=== PATIENT | male | born 1950 | race Caucasian/White ===

== ENCOUNTER → 2023-10-25 | Outpatient (CLI) | payer MEDICARE, SELFPAY ==
--- OUTSIDE RECORDS SUMMARY | 2023-10-25 10:19 | XMS RPT_ITS | CCD ---
Author Name Unknown Address [address] [place] [address] Organization [facility] Care Team Providers Care Aluminum Molder Name Role Phone Santi Hayden Unavailable Unavailable Unavailable AJ HEREDIA Referring Unavailab AJ Rahman Referring Unavailab STACI Lucio Referring Unavailable LOC DOBSON Attending Unavailable Medications Completed/Discontinued Medications Medication Drug Class(es) Dates Sig (Normalized) Sig (Original) aspirin 81 mg oral tablet (3 sources) Platelet Aggregation Inhibitor, Nonsteroidal Anti-inflammatory Drug Aspirin 81 MG TAB S Quantity: 0 Refills: 0 Ordered: 04-Nov-2016 DO Active Problems Problem Classification Problem Date Documented Date Episodic/Chronic Coronary atherosclerosis and other heart disease (3 sources) Coronary arteriosclerosis; Translations: [Coronary atherosclerosis of unspecified type of vessel, iqugmiut or graft] Chronic Genitourinary symptoms and ill-defined conditions (3 sources) Increased frequency of urination; Translations: [Urinary frequency] Episodic Other diseases of kidney and ureters (1 source) Other specified disorders of kidney and ureter; Translations: [Right kidney mass] Onset: 10-19-2023 Chronic Other lower respiratory disease (1 source) Other nonspecific abnormal finding of lung field; Translations: [Mass of upper lobe of left lung] Onset: 10-11-2023 Episodic Other non-traumatic joint disorders (3 sources) Pain in wrist; Translations: [Pain in joint, forearm] Episodic Other nutritional; endocrine; and metabolic disorders (1 source) Abnormal weight loss; Translations: [Weight loss, unintentional] Onset: 10-11-2023 Episodic Other upper respiratory infections (6 sources) Acute frontal sinusitis; Translations: [Acute frontal sinusitis] Episodic Sprains and strains (3 sources) Low back strain; Translations: [Sprain of lumbar] Episodic Results Test Name Value Interpretation Reference Range Facil ity Vital Signs Date Time Vital Sign Value Performing Clinician Mallory turcios 07-27-2021 11:00-0400 Body mass index (BMI) [Ratio] 26.85 kg/m2 Santi Hayden Work Phone: [facility] Work Phone: 07-27-2021 11:00-0400 Body surface area Derived from formula 2.03 m2 Santi Hayden [facility] Work Phone: 07-27-2021 11:00-0400 Body temperature 97.2 [degF] Santi Hayden [facility] Work Phone: 07-27-2021 11:00-0400 Body weight 84.88 kg Santi Hayden [facility] Work Phone: 07-27-2021 11:00-0400 Diastolic blood pressure 68 mm[Hg] Santi Hayden Work Phone: [facility] Work Phone: 07-27-2021 11:00-0400 Heart rate 70 /min Santi Hayden Work Phone: [facility] Work Phone: 07-27-2021 11:00-0400 Systolic blood pressure 112 mm[Hg] Santi Hayden Work Phone: [facility] Work Phone: Encounters Encounter Date Encounter Type Care Provider Facility Start: 10-24-2023 End: 10-24-2023 ambulatory STACI MCNULTY Facility:[facility] Start: 10-19-2023 ambulatory AJ Westbrook acility:[facility] Start: 10-08-2023 Emergency department patient visit Facility:[facility] Start: 08-09-2021 AUDIT Santi merino Work Phone: [facility] Work Phone: Start: 07-27-2021 Office outpatient vi sit 15 minutes Santi Hayden Work Phone: [facility] Work Phone: Procedures Date Procedure Procedure Detail Performing Clinician Inguinal Hernia Repair Santi Hayden Work Phone: Payers Date Payer Category Payer Private Health Insurance [id number] Unknown Social History Date Type Detail Facility Current every day smoker Current every da y smoker [facility] Work Phone: Progress note 10-24-2023 Note Date & Type Note Facility 10-24-2023 Note HNO ID: [id number] Author: LOC DOBSON MD Service: ? Author Type: Physician Type: Progress Notes Filed: 10/24/2023 15:41 Note Text: HISTORY OF PRESENT ILLNESS: Santi Moore is a 73 year old male presented to ER after syncope, needed stitches to head, had a chest x ray, found mass. Workup led to PET scan and bronchoscopy, showed SCC lung. PET also shows bilateral lung nodules and a kidney mass on right, FDG avid. He feels ok, has been less energetic, lost weight since hospital stay, not dyspneic, cough is chronic stable. Right low back pain in vicinity of kidney mass. 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 As such stage IV Right renal mass. RECOMMENDATION/PLAN: 1. Plan SA pembrolizumab given paucity of symptoms, and PDL positivity 2. Biopsy renal mass, suspect separate process. Written and verbal health teaching given to patient, patient verbalizes understanding and agrees with treatment plan. PAST MEDICAL HISTORY Diagnosis Date CAD (coronary artery disease) Fracture HLD (hyperlipidemia) 10/08/2023 HTN (hypertension) 10/08/2023 Increased stomach acid PAST SURGICAL HISTORY Procedure Laterality Date HERNIA REPAIR HX 2 PAST SURGICAL HISTORY OF Right repair of right ankle fracture FAMILY HISTORY Problem Relation Age of Onset Breast Cancer Sister Heart disease Sister Heart disease Maternal Grandfather Social History Tobacco Use Smoking status: Former Packs/day: 2.00 Years: 30.00 Additional pack years: 0.00 Total pack years: 60.00 Types: Cigarettes Quit date: 10/08/2023 Years since quittin.0 Smokeless tobacco: Former Types: Snuff, Chew Quit date: 01/08/1961 Substance Use Topics Alcohol use: Yes Comment: stating, occasionally. Drug use: No ALLERGIES: ALLERGIES No Known Allergies CURRENT OUTPATIENT MEDICATIONS: cholecalciferol, vitamin D3, (VITAMIN D3 ORAL) Take by mouth once daily. cyanocobalamin, vitamin B-12, (VITAMIN B-12 ORAL) Take by mouth once daily. ZINC ORAL Take by mouth once daily. ascorbic acid (VITAMIN C ORAL) Take by mouth once daily. GARLIC ORAL Take by mouth once daily. OTC NUTRITIONAL SUPPLEMENT once daily. Beet root MAGNESIUM ORAL Take by mouth once daily. pantoprazole DR (PROTONIX) 40 mg tablet Take 1 tablet by mouth daily at 6 am. acetaminophen (TYLENOL) 325 mg tablet Take 2 tablets by mouth every 6 hours as needed for pain. REVIEW OF SYSTEMS: GENERAL: No fever, night sweats, weight loss or malaise. All other reviewed and negative other than HPI. PHYSICAL EXAMINATION: VITAL SIGNS: BP 118/69 Pulse 84 Temp (Src) 99.8 (Temporal) Ht 5' 10 (1.78m) Wt 164 lb (74.4kg) SpO2 96% BMI 23.53 kg/(m2). GENERAL APPEARANCE: Well appearing, in no acute distress, alert and oriented x3, well-hydrated, well nourished. I spent a total of 60 minutes on the date of the service which included preparing to see the patient, [id number] patient care, completing clinical documentation, obtaining and/or reviewing separately obtained history, performing a medically appropriate examination, counseling and educating the patient/family/caregiver, ordering medications, tests, or procedures, communicating with other HCPs (not separately reported), independently interpreting results (not separately reported), communicating results to the patient/family/caregiver, and care coordination (not separately reported). Electronically Signed: Loc Dobson MD October 24, 2023 8:50 AM [facility] Progress note 10-19-2023 Note Date & Type Note Facility 10-19-2023 Note HNO ID: [id number] Author: RACHAEL GARVEY RT(R) Service: Nuclear Medicine Author Type: Technologist Type: Progress Notes Filed: 10/19/2023 07:49 Note Text: RADIOLOGY SERVICE PROGRESS NOTE SERVICE DATE: 10/19/2023 SERVICE TIME: 7:49 AM PATIENT IDENTITY VERIFICATION COMPLETED USING TWO (2) STANDARD IDENTIFIERS: Name and Date of confirmed by patient verbally and Name and Date of confirmed by identification band FALL SCREENING: Has the patient had 2 falls in the last year or 1 fall with injury or currently using an Ambulatory Assistive Device (Walker, Cane, Wheelchair, Crutches, etc.)? No PATIENT GENDER DATA: .male ALLERGIES: Reviewed and unchanged MEDICATIONS REVIEWED: No PATIENT RELEVANT IMPLANT DATA REVIEWED: Not Applicable CREATININE: Creatinine Date Value Ref Range Status 10/11/2023 1.09 0.73 - 1.22 mg/dL Final 10/10/2023 1.15 0.73 - 1.22 mg/dL Final 10/09/2023 1.06 0.73 - 1.22 mg/dL Final Estimated Glomerular Filtration Rate Date Value Ref Range Status 10/11/2023 72 >=60 mL/min/1.73m? Final Comment: Estimated Glomerular Filtration Rate (eGFR) is calculated using the 2020 CKD-EPI creatinine equation. This equation utilizes serum creatinine, sex, and age as parameters. The creatinine assay has traceable calibration to isotope dilution-mass spectrometry. Refer to KDIGO guidelines for clinical interpretation. In patients with unstable renal function, e.g. those with acute kidney injury, the eGFR may not accurately reflect actual GFR. P.O.C.T. RESULTS: N/A October 19, [address] PERFORMED: No IV SITE: Ambulatory: NM only - direct IV injection in the Right antecubital site POST EXAM PIV STATUS: Discontinued PROCEDURE TYPE: NM INJECT: PET/CT BODY SCAN. 15.4 mCi F18 FDG. No other medications given.. ADMINISTRATION TIME: 0734 PATIENT DISCHARGED TO: Ambulatory patient, left [place] department area. A Diagnostic radioactive procedure has taken place, with no further precautions necessary other than routine body substance precautions. More information regarding radiation safety can be found using this link: [email or web address] SIGNATURE: RT Dave(R) PATIENT NAME: Santi Moore DATE: October 19, 2023 TIME: 7:49 AM PAGER/CONTACT #: [facility] Progress note 10-11-2023 Note Date & Type Note Facility 10-11-2023 Note HNO ID: [id number] Author: Kimmie Gibbs APRN.CORPORATE SECURITY MANAGER Service: Cardiovascular Medicine Author Type: Nurse Practitioner Type: Progress Notes Filed: 10/11/2023 1:16 PM Note Text: CONSULT: CARDIOLOGY SERVICE PATIENT NAME: Santi Moore DATE of SERVICE: 10/11/2023 TIME of SERVICE: 10:31 AM Interval HPI: Feels well. Anxious for discharge home. ASSESSMENT AND PLAN: Probable vasovagal syncope CAD with prior intervention to OM Possible lung and renal cell carcinoma, bronch with b planned OP Hypertension Hyperlipidemia Awaiting echo Continue current therapy Ok for dc pending echo MEDICATIONS: Current Facility-Administered Medications Medication Dose Route Frequency NaCl 0.9% iv flush bag 20 mL INTRAVENOUS PRN acetaminophen 650 mg tab(s) (TYLENOL) 650 mg ORAL q 6 H PRN ipratropium-albuterol 3 mL nebulizer solution (DUONEB) 3 mL INHALATION q 4 H PRN enoxaparin 40 mg injection (LOVENOX) 40 mg SUBCUTANEOUS q [address] 40 mg tab(s) (PROTONIX) 40 mg ORAL DAILY (6 AM) lactated ringers iv infusion 75 mL/hr INTRAVENOUS CONTINUOUS iv contrast (radiology procedure) INTRAVENOUS DIRECTED PRN sodium chloride 0.9 % (flush) 2-10 mL (BD POSIFLUSH) 2-10 mL INTRAVENOUS DIRECTED PRN And perflutren lipid microspheres 1.1 mg/mL 1.3 mL injection (DEFINITY) 1.3 mL INTRAVENOUS DIRECTED PRN ALLERGIES: ALLERGIES No Known Allergies PHYSICAL EXAM: BP: 141/66 Temp: 36.8 ?C (98.2 ?F) Temp src: Oral Pulse: 49 Resp: 16 O2 Therapy: Room Air SpO2: 100 % GENERAL: Alert, no distress, cooperative SKIN: Skin color, texture, turgor normal. No rashes or lesions. HEAD/SINUSES: No significant findings EYES: PERRLA, EOMI EARS: External ears normal, canals clear NOSE: Nares normal. Septum midline. OROPHARYNX: Lips, mucosa, and tongue normal. Teeth and gums normal. Oropharynx normal. NECK: No jugulovenous distention, No carotid bruits, Carotid pulse normal contour, Supple LUNGS: Lungs clear to auscultation, Good diaphragmatic excursion CARDIAC: Normal S1 and S2; no rubs, murmurs, or gallops ABDOMEN: Abdomen soft, non-tender, BS normal, No masses or organomegaly EXTREMITIES: Extremities normal, no deformities, edema, clubbing or skin discoloration. Good capillary refill., No ulcers NEURO: AANDOx3 PULSES: 2+ radial, 2+ carotid DATA: Radiology: Laboratory: Reviewed Other: SIGNATURE: Kimmie Gibbs APRN.CORPORATE SECURITY MANAGER CELL TEXT : [phone] DATE: October 11, 2023 TIME: 1:05 PM [facility] Progress note 10-10-2023 Note Date & Type Note Facility 10-10-2023 Note HNO ID: [id number] Author: Fifi Jacobo MD Service: General Internal Medicine Author Type: Physician Type: Progress Notes Filed: 10/11/2023 12:52 PM Note Text: INPATIENT PROGRESS NOTE Subjective CHIEF COMPLAINT: Fall INTERVAL HPI: Feels okay, no fever or chills, no CP or SOB. Current Facility-Administered Medications Medication Dose Route Frequency NaCl 0.9% iv flush bag 20 mL INTRAVENOUS PRN acetaminophen 650 mg tab(s) (TYLENOL) 650 mg ORAL q 6 H PRN ipratropium-albuterol 3 mL nebulizer solution (DUONEB) 3 mL INHALATION q 4 H PRN enoxaparin 40 mg injection (LOVENOX) 40 mg SUBCUTANEOUS q [address] 40 mg tab(s) (PROTONIX) 40 mg ORAL DAILY (6 AM) lactated ringers iv infusion 75 mL/hr INTRAVENOUS CONTINUOUS iv contrast (radiology procedure) INTRAVENOUS DIRECTED PRN sodium chloride 0.9 % (flush) 2-10 mL (BD POSIFLUSH) 2-10 mL INTRAVENOUS DIRECTED PRN And perflutren lipid microspheres 1.1 mg/mL 1.3 mL injection (DEFINITY) 1.3 mL INTRAVENOUS DIRECTED PRN Objective PHYSICAL EXAM: BP 141/66 Pulse 49 Temp (Src) 98.2 (Oral) Resp 16 Ht 5' 10 (1.78m) Wt 164 lb 10.9 oz (74.7kg) SpO2 100% BMI 23.63 kg/(m2). O2 Therapy: Room Air Physical Exam Performed General appearance: Age appropriate, NAD Respiratory: Not labored, no wheezes or crackles Cardiovascular: RRR, no murmur Extremities: No edema, no clubbing Neurological: Negative for focal neurological deficits, alert and oriented Skin: Negative for lesions, rashes DATA: Diagnostic tests reviewed for today's visit: Most recent labs and imaging results. Assessment/Plan Principal Problem: Mass of upper lobe of left lung (POA: Yes) Active Problems: CAD (coronary artery disease) (POA: Yes) HLD (hyperlipidemia) (POA: Yes) HTN (hypertension) (POA: Yes) Leukocytosis (POA: Yes) Syncope (POA: Yes) Renal mass, right (POA: Yes) Weight loss, unintentional (POA: Yes) Cavitary lesion of lung (POA: Unknown) Cigarette smoker (POA: Unknown) Nicotine use disorder, F17.2 (POA: Unknown) Plan of care: MRI brain. OP bronchoscopy with biopsy. Check urine cytology. Echocardiogram. Consult cardiology. Monitor LABS and clinical course. Nutritional support. Advise with smoking cessation. Nicotine patches if requested. Appreciate oncology input. Appreciate pulmonary input. Malnutrition Diagnosis supported by Registered Dietitian:Moderate Protein-Calorie Malnutrition Based on: Insufficient Energy Intake, Unintentional Weight Loss Assessment: I have reviewed the result of the malnutrition assessment and plan and agree Plan: Diet Medication and Non-Pharmacologic VTE Prophylaxis/Anticoagulants Anticoagulant AND Antiplatelet Medications (From admission, onward) Start Dose Route Frequency Last Action Ordered Stop 10/09/23 1730 enoxaparin 40 mg injection (LOVENOX) (enoxaparin injection (LOVENOX)) 40 mg SUBCUTANEOUS EVERY 24 HOURS Given, 10/09 1842 10/09/23 1702 -- 10/09/23 0815 activity - mobilize patient (nd,wy) VTE Prophylaxis: VTE prophylaxis appropriate SIGNATURE: Fifi Jacobo MD PATIENT NAME: Santi Moore [facility] Clinical Note 10-09-2023 Note Date & Type Note Facility 10-09-2023 Note HNO ID: [id number] Author: Marilyn Lopes RN Service: ? Author Type: Registered Nurse Type: Nursing Progress Note Filed: 10/09/2023 9:00 AM Note Text: Dr. Dobson was contacted regarding consult.not [facility] History of Present illness Narrative 07-27-2020 Note Date & Type Note Facility 07-27-2020 History of Presen t illness Narrative Explains he has been having some difficulty with some right wrist swollen and painful since Sunday, using hammer. Has been having more difficulty with using the wrist since this time. Denies any fever chills denies any nausea vomiting diarrhea constipation.A year ago patient fell and hurt right wrist. [facility] Work Phone: Summary Purpose Family History No Family History Records FoundUnknown Family Member Name Dates Details : Mother, Father Status:Active Family history of Alzheimer' s disease: Mother(V17.2, Z82.0) Status:Active Unknown Family Member Name Dates Details : Mother, Father Status:Active Family history of Alzheimer' s disease: Mother(V17.2, Z82.0) Status:Active Unknown Family Member Name Dates Details Family history of Alzheimer' s disease: Mother(V17.2, Z82.0) Status:Active : Mother, Father Status:Active Advance Directives No Advanced Directives Records FoundNo Advanced Directives Records FoundNo Advanced Directives Records FoundNo Advanced Directives Records FoundNo Advanced Directives Records FoundNo Advanced Directives Records Found Chief Complaint Right wrist swollen and painful since Sunday, using hammer. Additional Source Comments (unrecognized sect ion and content) No Status Records FoundNo Status Records FoundNo Status Records FoundNo Status Records FoundNo Status Records FoundNo Status Records Found INFORMATION SOURCE (unrecogn ized section and content) DATE CREATED AUTHOR AUTHOR'S ORGANIZ ATION 07/28/2021 [facility] DATE CREATED AUTHOR AUTHOR'S ORGANIZ ATION 08/04/2021 [facility] DATE CREATED AUTHOR AUTHOR'S ORGANIZ ATION 10/20/2023 [facility] DATE CREATED AUTHOR AUTHOR'S ORGANIZ ATION 10/24/2023 [facility] DATE CREATED AUTHOR AUTHOR'S ORGANIZ ATION 10/25/2023 [facility] FOR RECORDS PERTAINING TO PATIENTS WHO ARE OR HAVE BEEN ENROLLED IN A CHEMICAL DEPENDENCY/SUBSTANCEABUSE PROGRAM, SOME INFORMATION MAY BE OMITTED. This clinical summary was aggregated from multiple sources. Caution should be exercised in using it in the provision of clinical care. This summary normalizes information from multiple sources, and as a consequence, information in this document may materially change the coding, format and clinical context of patient data. In addition, data may be omitted in some cases. CLINICAL DECISIONS SHOULD BE BASED ON THE PRIMARY CLINICAL RECORDS. [facility]. provides no warranty or guarantee of the accuracy or completeness of information in this document.
[2023-10-25 12:23] LABS: Absolute Lymphocyte Count 1.06 X10^3/uL (0.83-4.51); Absolute Neutrophil Count 7.4 X10^3/uL (2.0-7.7); Basophil# 0.04 X10^3/uL; Basophil% 0.4 % (0-1); Eosinophil# 0.04 X10^3/uL; Eosinophils% 0.4 % (0-5); Hematocrit 33.5 % (40-54); Hemoglobin 10.8 g/dL (13.0-16.5); Lymphocyte # 1.06 X10^3/ul (0.83-4.51); Lymphocyte % 11.1 % (19-41); Mean Corp Hgb Conc 32.2 g/dL (32-36); Mean Corpuscular Hgb 28.1 pg (27.0-32.0); Mean Corpuscular Volume 87.2 fL (80-94); Mean Platelet Vol. 9.1 fl (6.2-12.0); Monocyte# 0.97 X10^3/uL; Monocyte% 10.2 % (0-10); NRBC Flagged by Analyzer 0 % (0-5); Neutrophil # 7.37 X10^3/uL (2.7-7.7); Neutrophil % 77.4 % (47-70); Platelet Count 448 K/mm3 (150-450); RBC Distribution Width CV 12.6 % (11.6-14.6); RBC Distribution Width SD 40.4 fl (35.1-43.9); Red Blood Count 3.84 M/mm3 (4.6-6.2); White Blood Count 9.5 K/mm3 (4.4-11.0)
[2023-10-25 13:14] LABS: ALB/GLOB Ratio 0.5 RATIO (0.9-2.4); AST(SGOT) 12 U/L (15-37); Alanine Aminotransfer ALT/SGPT 17 U/L (16-61); Albumin, Serum 2.4 g/dL (3.2-5.0); Alkaline Phosphatase 183 U/L (45-117); Anion Gap 6 (5-15); BUN 18 mg/dL (7-18); BUN/Creat Ratio 14.2 RATIO (10-20); Calcium,Total 9.4 mg/dL (8.5-10.1); Chloride 101 mmol/L (98-107); Cholesterol 99 mg/dL (200); Creatinine, Serum 1.27 mg/dL (0.70-1.30); EST Glomerular Filtration Rate 59 mL/min (>60); Est Glom Filt Rate - Afr Amer 72 mL/min (>60); Globulin 4.6 g/dL (2.2-4.2); Glucose 117 mg/dL (74-106); High Density Lipoprotein 16 mg/dL; Potassium 4.5 mmol/L (3.5-5.1); Sodium Level 134 mmol/L (136-145); Triglycerides 107 mg/dL; Very Low Density Lipoprotein 21 mg/dL (5-40)
== END | disposition home or self-care (01) ==
LOC: BIMLAB 09:46
PROVIDERS: PCP Internal Medicine; Referring Provider Internal Medicine; Visit Provider Internal Medicine
DX: I25.10 Atherosclerotic heart disease of native coronary artery without angina pectoris (principal); C34.90 Malignant neoplasm of unspecified part of unspecified bronchus or lung
CPT/HCPCS: 36415; 80053; 80061; 85025

== ENCOUNTER 2023-12-17 00:43 | Inpatient (IN) | payer MEDICARE, SELFPAY ==
[2023-12-17] VITALS (25 sets, daily range): BP systolic 73–129; BP diastolic 47–80; PULSE 45–147; RESP 8–21; TEMP 36–36.8; O2SAT 92–100; BMI 22.1; BMI 22.3
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
--- NOTE | 2023-12-17 01:17 | EKG12_ITS ---
Test Reason : DYSRHYTHMIA Blood Pressure : / mmHG Vent. Rate : 140 BPM Atrial Rate : 000 BPM P-R Int : 000 ms QRS Dur : 090 ms QT Int : 296 ms P-R-T Axes : 000 -25 061 degrees QTc Int : 451 ms Critical Test Result: High HR Atrial fibrillation with rapid ventricular response Low voltage QRS Abnormal ECG Confirmed by Bhavik Paul ([id number]), editor map SONJA GARNER ([id number]) on 12/19/2023 9:22:13 AM Referred By: YEE Confirmed By:Bhavik Paul
--- NOTE | 2023-12-17 01:18 | RAD_ITS ---
EXAM: XR CHEST, 2 VIEWS CLINICAL INDICATION: Dyspnea . There is mention of a history of lung cancer but a prior chest CT or report is not provided. TECHNIQUE: Frontal and lateral views of the chest. COMPARISON: On the abdomen and pelvis CT the same day there is severe apparent pyelonephritis versus infiltrating mass replacing much of the right kidney, question of some thrombus or tumor embolus involving right renal vein near the kidney. Also left pleural effusion, and dense consolidation in the left lingula adjacent to the left heart margin. Right middle lobe nodule of 6 mm seen on most superior image. FINDINGS: LUNGS AND PLEURAL SPACES: There is an indeterminate gas filled cavity with small air-fluid level projecting over the left hilar region on frontal view and anterior to the left hilum on the lateral view, measuring at least 5.3 cm x 6.1 cm x 4.8 cm. There is mild opacity in the medial left upper thorax more superiorly. The left hemidiaphragm is not elevated. There are at least moderate changes suggesting COPD in the right upper lobe. Minimal streaky opacities in the lung bases. Mild blunting of the posterior left costophrenic angle on the lateral view suggesting small effusion. No pneumothorax. HEART: Unremarkable. Cardiac silhouette not enlarged. MEDIASTINUM: Central airways and mediastinal contour are unremarkable. BONES/JOINTS: Mild multilevel mid to lower thoracic anterior spondylosis. No acute fracture. SOFT TISSUES: Unremarkable. RAD/Chest PA and Lateral IMPRESSION: 1. Chest CT with contrast is recommended unless recently performed to evaluate indeterminate cystic mass and adjacent hazy opacity projecting in the left anterior perihilar region unless recently evaluated. 2. There is dense consolidation in left hilar region partially included on CT of the abdomen and pelvis. This may be due to known large necrotic neoplasm or other but no prior chest CT is provided. 3. Considerations include large infected bronchopulmonary duplication cyst, parenchymal or perihilar abscess and necrotic neoplasm. 4. Small left effusion. Electronically Signed: Fernanda Hawley MD at 2:49 EST ,
--- NOTE | 2023-12-17 01:18 | CT_ITS ---
We are attempting to reach an attending provider to discuss findings. An addendum with communication details will be sent when the communication is complete. EXAM: CT ABDOMEN AND PELVIS WITH INTRAVENOUS CONTRAST CLINICAL INDICATION: Hematuria TECHNIQUE: Helically acquired images were obtained of the abdomen and pelvis with intravenous contrast. This CT exam was performed using one or more of the following dose reduction techniques: automated exposure control, adjustment of the mA and/or kV according to patient size, and/or use of iterative reconstruction technique. CONTRAST: IV 100mL [id number] RADIATION DOSE: 6 = 15.27 mGy, DLP = 580.36 mGy-cm COMPARISON: No relevant prior studies available. FINDINGS: LOWER THORAX: Dense consolidation in the left lingula abutting the partially included heart margin. Mild left pleural effusion. Peripheral 7 mm x 6 mm lung nodule is seen in the anterior right middle lobe and another faint groundglass nodule left 8 mm is seen in the right inferior-posterior right middle lobe adjacent to the diaphragm. ABDOMEN: LIVER: Unremarkable. Homogeneous. No focal mass. GALLBLADDER AND BILE DUCTS: Unremarkable. No calcified gallstones. No gallbladder distention or wall edema. No intra- or extrahepatic biliary ductal dilation. PANCREAS: Unremarkable. No focal cystic or solid mass. SPLEEN: Unremarkable. Normal size without focal cystic or solid mass. ADRENALS: Unremarkable. No nodules. KIDNEYS AND URETERS: There appears to be some subcapsular hypodense fluid of at least 6 mm maximum thickness lateral to the lower pole right kidney. There is a large zone of irregular low attenuation involving most of the mid to lower right kidney with some thin rim of irregular discontinuous enhancing cortex, low-attenuation suggesting debris or mass extension into mildly distended right renal pelvis and proximal ureter, right renal pelvis roughly 1.5 cm, proximal right ureter roughly 1.1 cm. Mild peripheral enhancement of mid to distal right ureter, this may be due to UTI or superimposed inflammation. Cannot exclude underlying tumor. There is low attenuation in the proximal right renal vein and the distal right renal vein is isodense, compared to the hyperdense normal left renal vein containing venous enhancement. Cannot exclude venous thrombosis. Renal ultrasound with attention to the renal vein is recommended. STOMACH AND BOWEL: Mild fluid and gas in the stomach, mildly prominent fluid and gas in the small bowel. Moderate stool throughout most of the colon including the rectum. No stomach or bowel distention. No focal inflammatory change. PELVIS: APPENDIX: Small appendix is seen on axial images. BLADDER: Unremarkable. REPRODUCTIVE: Mild fullness of the prostate, 5 cm transverse. ABDOMEN and PELVIS: INTRAPERITONEAL SPACE: Unremarkable. No ascites or other fluid collection. No free air. BONES/JOINTS: Moderate multilevel degenerative lumbar spine changes, mild endplate sclerosis, small Schmorl''s nodes, mild disc space narrowing, mild spondylosis. No gerard destructive bone lesions are seen the lumbar spine, pelvis or inferior ribs. No suspicious lytic or blastic abnormality. SOFT TISSUES: There are postoperative changes in the right groin, presumed hernia repair. VASCULATURE: Slight dilatation of distal infrarenal aorta, 2.6 cm x 2.6 cm. Atherosclerotic calcification of aortoiliac vessels mild left pleural effusion. Mild narrowing of proximal celiac axis and SMA, mild calcification without significant narrowing at the proximal right renal artery. The extrarenal right renal artery is opacified. 4 infrarenal enhancement. LYMPH NODES: Unremarkable. No enlarged lymph nodes. CT/Abdomen/Pelvis W IV Cont ONLY IMPRESSION: 1. Multifocal lung changes and pleural effusion, consider CT chest for further evaluation of large cavitary lesion and consolidation near the left hilum. No prior chest exams are provided other than today''s chest radiograph. I would be happy to compare to any prior chest CT. 2. Low attenuation and poor enhancement of at least two thirds of the right mid to lower kidney with suspicion of thrombus or debris in the adjacent right renal vein and in the right renal pelvis. Not a typical appearance of pyelonephritis or infarct since it does not completely involve the cortex and it is not significantly wedge-shaped. Possibly severe pyelonephritis. But suspicious for large infiltrative mass involving the right kidney, right renal vein and proximal right collecting system. 3. Consider ultrasound to evaluate patency of right renal vein and to evaluate for any tumor thrombus or bland thrombus in the IVC. 4: Moderate stool in most of the colon and rectum. Normal appendix. Advanced atherosclerotic changes. Electronically Signed: Fernanda Hawley MD at 3:06 EST ,
[2023-12-17] MEDS: 0.9% Normal Saline (1000mL) 1,000 ML 1000 ML IV ×2 (01:30→03:46)
--- OUTSIDE RECORDS SUMMARY | 2023-12-17 01:33 | XMS RPT_ITS | CCD ---
Author Name Unknown Address [address] [place] [address] Organization [facility] Care Team Providers Care Inspector And Sorter Name Role Phone CatrachoSanti Cori Unavailable Unavailable Unavailable AJ HEREDIA Referring Unavailab AJ Rahman Referring Unavailab Loc Miguel MD Unavailable Aimee Lee RN Unavailable Santi Lopez MD Primary Care Provider VICTOR M MARTINES Attending Unavailable VICTOR M MARTINES Admitting Unavailable Santi Lopez MD Primary Care Provider SANTI LOPEZ Primary Care Unavailab LOC Miguel Referring Unavailable SANTI LOPEZ Primary Care Unavailab STACI Lucio Referring Unavailable LOC DOBSON Attending Unavailable YOANNA LEVIN Referring Unavailable SANTI LOPEZ Primary Care Unavailab le SELF Referring Unavailable YOANNA LEVIN Attending Unavailable SANTI LOPEZ Primary Care Unavailab le KROMALSANTI MILIAN Primary Care Unavailab SONJA Kendall Attending Unavailable SANTI LOPEZ Primary Care Unavailab LOC Miguel Referring Unavailable SANTI LOPEZ Primary Care Unavailab le SANTI LOPEZ Primary Care Unavailab ENIO Gregory Attending Unavailable SANTI LOPEZ Primary Care Unavailab SONJA Kendall Attending Unavailable SONJA ELIZALDE Attending Unavailable SANTI LOPEZ Primary Care Unavailab LOC Miguel Referring Unavailable SANTI LOPEZ Primary Care Unavailab le Medications Current Medications Medication Drug Class(es) Dates Sig (Normalized) Sig (Original) azithromycin 250 mg oral tablet (3 sources) Macrolide Antimicrobial Start: 11-30-2023 End: 12-05-2023 take 2 tablets by mouth once daily, then take 1 tablet by mouth once daily azithromycin (ZITHROMAX) 250 mg tablet Indications: Cough, unspecified type , Acute upper respiratory infection Take 2 tablets by mouth once daily for 1 day, THEN 1 tablet once daily for 4 days. 6 tablet 0 11/30/2023 12/05/2023 Active Completed/Discontinued Medications Medication Drug Class(es) Dates Sig (Normalized) Sig (Original) acetaminophen 325 mg oral tablet (13 sources) Start: 10-11-2023 take 2 tablets by mouth every six hours as needed acetaminophen (TYLENOL) 325 mg tablet Take 2 tablets by mouth every 6 hours as needed for pain. 0 10/11/2023 Active Problems Problem Classification Problem Date Documented Date Episodic/Chronic Cancer of bronchus; lung (20 sources) Squamous cell carcinoma of left lung; Translations: [Malignant neoplasm of unspecified part of left bronchus or lung] Onset: 10-25-2023 11-16-2023 Chronic Chronic obstructive pulmonary disease and bronchiectasis (3 sources) Centriacinar emphysema; Translations: [Centrilobular emphysema] Onset: 12-14-2023 12-14-2023 Chronic Coronary atherosclerosis and other heart disease (16 sources) Coronary arteriosclerosis; Translations: [Coronary atherosclerosis of unspecified type of vessel, habematolel or graft] Onset: 10-08-2023 10-11-2023 Chronic Disorders of lipid metabolism (13 sources) Hyperlipidemia; Translations: [Hyperlipidemia, unspecified] Onset: 10-08-2023 10-11-2023 Chronic Essential hypertension (13 sources) Hypertensive disorder; Translations: [Essential (primary) hypertension] Onset: 10-08-2023 10-11-2023 Chronic Genitourinary symptoms and ill-defined conditions (3 sources) Increased frequency of urination; Translations: [Urinary frequency] Episodic Nutritional deficiencies (16 sources) Deficiency of macronutrients; Translations: [Unspecified severe protein-calorie malnutrition] Onset: 11-16-2023 11-16-2023 Chronic Nutritional deficiencies (1 source) Cachexia; Translations: [Cachexia] 12-14-2023 Episodic Other diseases of kidney and ureters (3 sources) Other specified disorders of kidney and ureter; Translations: [Right kidney mass] Onset: 10-19-2023 Chronic Other diseases of kidney and ureters (13 sources) Renal mass; Translations: [Other specified disorders of kidney and ureter] Onset: 10-08-2023 10-11-2023 Chronic Other lower respiratory disease (1 source) Other nonspecific abnormal finding of lung field; Translations: [Mass of upper lobe of left lung] Onset: 10-11-2023 Episodic Other lower respiratory disease (13 sources) Lung mass; Translations: [Other nonspecific abnormal finding of lung field] Onset: 10-08-2023 10-11-2023 Episodic Other lower respiratory disease (13 sources) Cavitation of lung; Translations: [Other disorders of lung] Onset: 10-09-2023 10-11-2023 Episodic Other lower respiratory disease (1 source) Cough; Translations: [Cough, unspecified type] 11-30-2023 Episodic Other non-traumatic joint disorders (3 sources) Pain in wrist; Translations: [Pain in joint, forearm] Episodic Other nutritional; endocrine; and metabolic disorders (1 source) Abnormal weight loss; Translations: [Weight loss, unintentional] Onset: 10-11-2023 Episodic Other nutritional; endocrine; and metabolic disorders (14 sources) Unintentional weight loss; Translations: [Abnormal weight loss] Onset: 10-08-2023 10-11-2023 Episodic Other upper respiratory infections (7 sources) Acute frontal sinusitis; Translations: [Acute frontal sinusitis] 12-03-2023 Episodic Screening and history of mental health and substance abuse codes (1 source) Ex-cigarette smoker; Translations: [Personal history of nicotine dependence] 12-14-2023 Episodic Sprains and strains (3 sources) Low back strain; Translations: [Sprain of lumbar] Episodic Substance-related disorders (20 sources) Cigarette smoker ; Translations: [Nicotine dependence, cigarettes, uncomplicated] Onset: 10-09-2023 10-11-2023 Chronic Unclassified (1 source) passed out on toilet, hit head above right eye Onset: 10-08-2023 Results Test Name Value Interpretation Reference Range Facil ity Vital Signs Date Time Vital Sign Value Performing Clinician Facility 12-14-2023 08:34-0500 Body weight 68.95 kg Pulm Wstr Work Phone: [facility] 12-14-2023 08:34-0500 Heart rate 92 /min Pulm Wstr Work Phone: [facility] 12-14-2023 08:34-0500 SaO2% (BldA) [Mass fraction] 99 % Pulm Wstr Work Phone: [facility] 12-14-2023 08:01-0500 Body weight 68.95 kg Yoanna Levin MD Work Phone: [facility] 12-03-2023 09:24-0500 Body temperature 99.19 [degF] Treatment Wstr Work Phone: [facility] 12-03-2023 09:24-0500 Body weight 69.17 kg Treatment Wstr Work Phone: [facility] 12-03-2023 09:24-0500 Diastolic blood pressure 61 mm[Hg] Treatment Wstr Work Phone: [facility] 12-03-2023 09:24-0500 Heart rate 71 /min Treatment Wstr Work Phone: [facility] 12-03-2023 09:24-0500 Respiratory rate 18 /min Treatment Wstr Work Phone: [facility] 12-03-2023 09:24-0500 Systolic blood pressure 119 mm[Hg] Treatment Wstr Work Phone: [facility] 11-30-2023 09:31-0500 Body temperature 100.4 [degF] Enio Branch Work Phone: [facility] 11-30-2023 09:31-0500 Body weight 69.17 kg Enio Branch Work Phone: [facility] 11-30-2023 09:31-0500 Diastolic blood pressure 69 mm[Hg] Enio Branch Work Phone: [facility] 11-30-2023 09:31-0500 Heart rate 88 /min Enio Branch Work Phone: [facility] 11-30-2023 09:31-0500 SaO2% (BldA) [Mass fraction] 89 % Enio Branch Work Phone: [facility] 11-30-2023 09:31-0500 Systolic blood pressure 119 mm[Hg] Enio Branch Work Phone: [facility] 07-27-2021 11:00-0400 Body mass index (BMI) [Ratio] 26.85 kg/m2 Santi Lopez Work Phone: [facility] Work Phone: 07-27-2021 11:00-0400 Body surface area Derived from formula 2.03 m2 Santi Hoffmanic Work Phone: [facility] Work Phone: 07-27-2021 11:00-0400 Body temperature 97.2 [degF] Santi Lopez Work Phone: [facility] Work Phone: 07-27-2021 11:00-0400 Body weight 84.88 kg Santi Hoffmanic Work Phone: [facility] Work Phone: 07-27-2021 11:00-0400 Diastolic blood pressure 68 mm[Hg] Santi Lopez Work Phone: [facility] Work Phone: 07-27-2021 11:00-0400 Heart rate 70 /min Santi Hoffmanic Work Phone: [facility] Work Phone: 07-27-2021 11:00-0400 Systolic blood pressure 112 mm[Hg] Santi Hoffmanic Work Phone: [facility] Work Phone: Encounters Encounter Date Encounter Type Care Provider Facility Start: 12-14-2023 Telephone encounter Yoanna Levin MD Work Phone: [facility] Procedures Date Procedure Procedure Detail Performing Clinician Start: 12-14-2023 Noninvasive ear/puls e oximetry multiple deter Yoanna Levin MD Work Phone: Start: 01-10-2012 Lipid 1996 panel - S karyna or Plasma Sonja Elizalde RD Work Phone: Inguinal Hernia Repair Santi Valleemerita Work Phone: Plan of Treatment Date Care Activity Detail Author Start: 10-08-2033 Urine microalbumin profile DTaP,Tdap,Td Vaccine (2 - Td or Tdap) [facility] Start: 11-30-2026 Diabetes Screening Diabetes Screening [facility] Start: 11-12-2026 Diabetes Screening Diabetes Screening [facility] Start: 12-13-2024 BP Controlled (<130/80) BP Controlled (<130/80) [facility] Start: 11-30-2024 BP Controlled (<130/80) BP Controlled (<130/80) [facility] Start: 10-24-2024 BP Controlled (<130/80) BP Controlled (<130/80) [facility] Start: 10-15-2023 Advance Directive Discussion Advance Directive Discussion [facility] Start: 10-15-2023 Depression Assessment Depression Assessment [facility] Start: 06-15-2023 Influenza [facility] Start: 01-09-2017 Lipid panel Lipid Screening [facility] Start: 01-09-2013 Hepatitis B surface antibody level LDL Cholesterol [facility] Start: 2010 RSV Vaccine (1 - 1-dose 60+ series) RSV Vaccine (1 - 1-dose 60+ series) [facility] Start: 1995 Screening for malignant neoplasm of colon [facility] Start: 1969 Shingrix Vaccine (1 of 2) Shingrix Vaccine (1 of 2) [facility] Start: 1968 Annual PCP Team Chronic Disease Visit Annual PCP Team Chronic Disease Visit [facility] Start: 1968 Hepatitis C screening Hepatitis C Screening [facility] Start: 1956 Pneumococcal Vaccine: 65+ (1 of 2 - PCV) Pneumococcal Vaccine: 65+ (1 of 2 - PCV) [facility] Start: 03-27-1951 Covid-19 Vaccine (#1) Covid-19 Vaccine (#1) [facility] Start: 1950 Abdominal aortic aneurysm screening Abdominal Aortic Aneurysm Screening [facility] End: 01-12-2025 LUNG DIFFUSION CAPACITY (DLCO) LUNG DIFFUSION CAPACITY (DLCO) PFT Routine Centrilobular emphysema (HCC) 1 Occurrences starting 12/14/2023 until 01/12/2025 [facility] Work Phone: Immunizations Immunization Date Immunization Notes Care Provider Fa brigid 10-08-2023 tetanus toxoid, redu diego diphtheria toxoid, and acellular pertussis vaccine, adsorbed Sonja Elizalde RD Work Phone: [facility] Work Phone: Payers Date Payer Category Payer Medicare [employer]NA MEDICARE HU[employer]NA GOLD PLUS [id number] 2022-Present [phone] [id number] [place] [id number] HMO [id number] 2022 Private Health Insurance [id number] Unknown Social History Date Type Detail Facility Start: 10-24-2023 End: 11-30-2023 Current every day smoker Current every day smoker [facility] Work Phone: Start: 10-24-2023 Tobacco smoking stat us ARIS Ex-smoker [facility] Work Phone: End: 10-08-2023 History of tobacco use Current smoker [facility] Work Phone: End: 10-08-2023 History of tobacco use Cigarette Smoker [facility] Work Phone: Start: 10-24-2023 Tobacco use and exposure Former smokeless tobacco user [facility] Work Phone: End: 01-08-1961 History of tobacco use Snuff User [facility] Work Phone: End: 01-08-1961 History of tobacco use Chews Tobacco [facility] Work Phone: Start: 10-24-2023 End: 12-14-2023 Alcohol intake Current drinker of alcohol (finding) [facility] Start: 10-24-2023 End: 11-30-2023 Tobacco use panel [facility] National Score (1-100), lower number is lower risk 80 [facility] Start: 01-09-2012 Alcohol Comment stating, occasionall y. [facility] Start: 1950 Sex Assigned At Male [facility] Start: 10-09-2023 Gender identity Identifies as male gender (finding) [facility] Clinical Notes 07-27-2020 to 12-14-2023 Telephone Encounter - Marilyn Pritchett RN - 12/14/2023 12:08 PM Desiree Clayton RPFT - 12/14/2023 8:36 AM Desiree Clayton RPFT - 12/14/2023 8:34 AM EST Note Date & Type Note Facility 12-14-2023 Miscellaneous Notes Palliative Medicine Referral Assessment Referral Accepted: Yes, Location: Pall Med at Home. Patient current location: Home: Timeframe for schedulin-2 weeks or soonest appt. Pall Med appropriate diagnosis: SCC left lung, PMH CAD, HLD, HTN, Fx. Established with Inpatient Pall Med team: no Reason for consult: introduction to services, goals of care, fatigue, symptom support , and coughing fits Virtual Visit Okay for PMH- no safety concerns identified by nurse. Cici Moore (Spouse) Marilyn Pritchett RN December 14, 2023 documented in this encounter [facility] 12-14-2023 Note HNO ID: [id number] Author: DESIREE BLAIR RPFT Service: ? Author Type: Respiratory Therapist Type: Procedures Filed: 12/14/2023 08:37 Note Text: RESPIRATORY THERAPY OXIMETRY WITH AMBULATION Oximetry with Ambulation Test for This Encounter O2 Device O2 Adapter NC O2 Flow SpO2% HR Activity Ft Walked (ft) Time (min) Avg Speed (MPH) R/A 99 92 Resting R/A 92 104 Walking, usual pace 510 3 1.93 R/A 90 113 Walking, fastest pace 600 3 2.27 General Information Pulse Oximetry Site Total Time Spent Walking Assistance/O2 Supply Carrier R Index Finger 30 None NAME: Desiree OSVALDO Blair PATIENT NAME: Santi Moore DATE: December 14, 2023 TIME: 8:37 AM Comment: [facility] 12-14-2023 Note HNO ID: [id number] Author: DESIREE BLAIR RPFT Service: ? Author Type: Respiratory Therapist Type: Progress Notes Filed: 12/14/2023 08:37 Note Text: PULM FUNCTION SMARTBLOCK: Provider: Yoanna Levin MD Assisting Tech: Desiree Blair RPFT Oximetry - Ambulation: 1 [facility] 12-14-2023 Note HNO ID: [id number] Author: YOANNA LEVIN MD Service: ? Author Type: Physician Type: Progress Notes Filed: 12/14/2023 09:17 Note Text: . Respiratory [place] Note Patient name: Santi Moore PCP: Santi Lopez MD CC: Hospital follow-up HPI: Santi Moore 73 year old male recent former 60 pack year smoker and drinker with PMH significant for CAD, HLD, HTN known to me from recent hospital admission for syncope. Head CT normal but other imaging remarkable for a large ADAL cavitary mass, mediastinal adenopathy, pulmonary nodules and right renal mass. Bronchoscopy confirmed squamous cell carcinoma and separate biopsy of renal mass confirmed metastatic disease rather than a separate primary. Tumor is PDL-1 positive 85%. Started on single agent pembrolizumab. Today he states that he has a poor appetite and has obviously lost weight since his hospitalization. He is drinking 4 Ensures a day. From a respiratory standpoint he has dyspnea on exertion and cough productive of bloody sputum. No current fevers or chills. No chest pain. He has been having issues with right lower flank pain that interferes with his ability to sleep. He has also had issues with hematuria. DATA: Oximetry with Ambulation Test for This Encounter O2 Device O2 Adapter NC O2 Flow SpO2% HR Activity Ft Walked (ft) Time (min) Avg Speed (MPH) R/A 99 92 Resting R/A 92 104 Walking, usual pace 510 3 1.93 R/A 90 113 Walking, fastest pace 600 3 2.27 General Information Pulse Oximetry Site Total Time Spent Walking Assistance/O2 Supply Carrier R Index Finger 30 None NAME: OSVALDO Rivera PATIENT NAME: Santi Moore DATE: December 14, 2023 TIME: 8:37 AM QRS Duration ms 110 QT Interval ms 412 QTC Calculation (Bazett) ms 412 Labs: Component Ref Range AND Units 2 wk ago Cortisol 4.8 - 19.5 ug/dL 20.8 High Component Ref Range AND Units 2 wk ago (11/30/23) WBC 3.70 - 11.00 k/uL 11.35 High RBC 4.20 - 6.00 m/uL 3.86 Low Hemoglobin 13.0 - 17.0 g/dL 10.1 Low Hematocrit 39.0 - 51.0 % 32.2 Low MCV 80.0 - 100.0 fL 83.4 MCH 26.0 - 34.0 pg 26.2 MCHC 30.5 - 36.0 g/dL 31.4 RDW-CV 11.5 - 15.0 % 13.6 Platelet Count 150 - 400 k/uL 369 MPV 9.0 - 12.7 fL 8.6 Low Neutrophils % % 78.5 Abs Neut 1.45 - 7.50 k/uL 8.90 High Lymphocytes % % 12.3 Abs Lymph 1.00 - 4.00 k/uL 1.40 Monocytes % % 7.8 Abs Preble <0.87 k/uL 0.89 High Eosinophils % % 0.5 Abs Eosin <0.46 k/uL 0.06 Basophils % % 0.4 Abs Baso <0.11 k/uL 0.04 Immature Granulocytes % % 0.5 Abs Immature Gran <0.10 k/uL 0.06 NRBC /100 WBC 0.0 Absolute nRBC <0.01 k/uL <0.01 Imaging / Diagnostic Studies: DATE OF EXAM: Oct 19 2023 8:34AM [facility] 0060 - NM PET/CT SKULL-THIGH INIT / PROCEDURE REASON: multiple diagnoses CLINICAL HISTORY: 73 years old Male with Mass of upper lobe of left lung Right kidney mass Weight loss, unintentional . INDICATION: Initial treatment strategy. CORRELATION: CT of the chest, abdomen and pelvis 10/08/2023 RESULTS: Liver SUV max 2.8 Mediastinal blood pool SUV max 2.0 Topogram review: Unremarkable, no acute findings. No retained foreign body. Head and Neck: No evidence of focal uptake to suggest FDG avid neoplastic process in the limited scanned region. No FDG avid cervical lymphadenopathy.. No significant anatomical abnormality to the limits of low dose noncontrast CT scan. Chest: Large FDG avid lung mass in the left upper lobe extending into the hilar region measuring approximately 6. 9.4 cm with SUV max 21.6, might be incorporating a right hilar lymphadenopathy. The septal thickening with adjacent FDG avid foci including 1.6 x 1.6 cm with SUV max 18.3 (3:125). Medial FDG avid nodule in the right lower lobe 1.0 cm with SUV max 4.1. FDG avid nodule in the left lower lobe 0.7 cm with SUV max 3.0. Smaller nodules are seen in bilateral lungs below PET resolution. PET may have lower sensitivity for nodules less than 0.8 cm in size FDG avid mediastinal lymphadenopathy largest is a subcarinal 3.1 x 2.2 cm with SUV max 22.5. Coronary artery and aortic atherosclerotic calcifications. Abdomen and Pelvis: FDG avid mass in the region of the lower pole measuring 6.0 x 4.2 cm with SUV max 19.9.. No evidence of FDG avid mesenteric, retroperitoneal, pelvic, or inguinal lymphadenopathy. Extremities/Skeleton: No evidence of focal uptake to suggest FDG avid neoplastic process. No FDG avid osseous lesions. No significant anatomical abnormality to the limits of low dose noncontrast CT scan. IMPRESSION: 1. HEAD and NECK: No evidence of focal uptake to suggest FDG avid neoplastic process.. 2. CHEST: FDG avid left upper lobe lung mass and multiple FDG avid nodules in bilateral lungs. FDG avid mediastinal and left hilar lymphadenopathy.. 3. ABDOMEN/PELVIS: FDG avid right renal mass likely primary.. 4. (more content not included)... [facility] 12-14-2023 Procedure note Associated Ord er(s): OXIMETRY WITH AMBULATION RESPIRATORY THERAPY OXIMETRY WITH AMBULATION Oximetry with Ambulation Test for This Encounter O2 Device O2 Adapter NC O2 Flow SpO2% HR Activity Ft Walked (ft) Time (min) Avg Speed (MPH) R/A 99 92 Resting R/A 92 104 Walking, usual pace 510 3 1.93 R/A 90 113 Walking, fastest pace 600 3 2.27 General Information Pulse Oximetry Site Total Time Spent Walking Assistance/O2 Supply Carrier R Index Finger 30 None NAME: OSVALDO Rivera PATIENT NAME: Santi Moore DATE: December 14, 2023 TIME: 8:37 AM Comment: documented in this encounter [facility] 12-14-2023 History of Presen t illness Narrative PULM FUNCTION SMARTBLOCK: Provider: Yoanna Levin MD Assisting Tech: Desiree Blair RPFT Oximetry - Ambulation: 1 documented in this encounter [facility] 12-14-2023 History of Presen t illness Narrative Images from the original note were not included. . Respiratory [place] Note Patient name: Santi Moore PCP: Santi Lopez MD CC: Hospital follow-up HPI: Santi Moore 73 year old male recent former 60 pack year smoker and drinker with PMH significant for CAD, HLD, HTN known to me from recent hospital admission for syncope. Head CT normal but other imaging remarkable for a large ADAL cavitary mass, mediastinal adenopathy, pulmonary nodules and right renal mass. Bronchoscopy confirmed squamous cell carcinoma and separate biopsy of renal mass confirmed metastatic disease rather than a separate primary. Tumor is PDL-1 positive 85%. Started on single agent pembrolizumab. Today he states that he has a poor appetite and has obviously lost weight since his hospitalization. He is drinking 4 Ensures a day. From a respiratory standpoint he has dyspnea on exertion and cough productive of bloody sputum. No current fevers or chills. No chest pain. He has been having issues with right lower flank pain that interferes with his ability to sleep. He has also had issues with hematuria. DATA: Oximetry with Ambulation Test for This Encounter O2 Device O2 Adapter NC O2 Flow SpO2% HR Activity Ft Walked (ft) Time (min) Avg Speed (MPH) R/A 99 92 Resting R/A 92 104 Walking, usual pace 510 3 1.93 R/A 90 113 Walking, fastest pace 600 3 2.27 General Information Pulse Oximetry Site Total Time Spent Walking Assistance/O2 Supply Carrier R Index Finger 30 None NAME: OSVALDO Rivera PATIENT NAME: Santi Moore DATE: December 14, 2023 TIME: 8:37 AM QRS Duration ms 110 QT Interval ms 412 QTC Calculation (Bazett) ms 412 Labs: Component Ref Range & Units 2 wk ago Cortisol 4.8 - 19.5 ug/dL 20.8 High Component Ref Range & Units 2 wk ago (11/30/23) WBC 3.70 - 11.00 k/uL 11.35 High RBC 4.20 - 6.00 m/uL 3.86 Low Hemoglobin 13.0 - 17.0 g/dL 10.1 Low Hematocrit 39.0 - 51.0 % 32.2 Low MCV 80.0 - 100.0 fL 83.4 MCH 26.0 - 34.0 pg 26.2 MCHC 30.5 - 36.0 g/dL 31.4 RDW-CV 11.5 - 15.0 % 13.6 Platelet Count 150 - 400 k/uL 369 MPV 9.0 - 12.7 fL 8.6 Low Neutrophils % % 78.5 Abs Neut 1.45 - 7.50 k/uL 8.90 High Lymphocytes % % 12.3 Abs Lymph 1.00 - 4.00 k/uL 1.40 Monocytes % % 7.8 Abs Preble <0.87 k/uL 0.89 High Eosinophils % % 0.5 Abs Eosin <0.46 k/uL 0.06 Basophils % % 0.4 Abs Baso <0.11 k/uL 0.04 Immature Granulocytes % % 0.5 Abs Immature Gran <0.10 k/uL 0.06 NRBC /100 WBC 0.0 Absolute nRBC <0.01 k/uL <0.01 Imaging / Diagnostic Studies: DATE OF EXAM: Oct 19 2023 8:34AM [facility] 0060 - NM PET/CT SKULL-THIGH INIT / PROCEDURE REASON: multiple diagnoses CLINICAL HISTORY: 73 years old Male with Mass of upper lobe of left lung Right kidney mass Weight loss, unintentional . INDICATION: Initial treatment strategy. CORRELATION: CT of the chest, abdomen and pelvis 10/08/2023 RESULTS: Liver SUV max 2.8 Mediastinal blood pool SUV max 2.0 Topogram review: Unremarkable, no acute findings. No retained foreign body. Head and Neck: No evidence of focal uptake to suggest FDG avid neoplastic process in the limited scanned region. No FDG avid cervical lymphadenopathy.. No significant anatomical abnormality to the limits of low dose noncontrast CT scan. Chest: Large FDG avid lung mass in the left upper lobe extending into the hilar region measuring approximately 6. 9.4 cm with SUV max 21.6, might be incorporating a right hilar lymphadenopathy. The septal thickening with adjacent FDG avid foci including 1.6 x 1.6 cm with SUV max 18.3 (3:125). Medial FDG avid nodule in the right lower lobe 1.0 cm with SUV max 4.1. FDG avid nodule in the left lower lobe 0.7 cm with SUV max 3.0. Smaller nodules are seen in bilateral lungs below PET resolution. PET may have lower sensitivity for nodules less than 0.8 cm in size FDG avid mediastinal lymphadenopathy largest is a subcarinal 3.1 x 2.2 cm with SUV max 22.5. Coronary artery and aortic atherosclerotic calcifications. Abdomen and Pelvis: FDG avid mass in the region of the lower pole measuring 6.0 x 4.2 cm with SUV max 19.9.. No evidence of FDG avid mesenteric, retroperitoneal, pelvic, or inguinal lymphadenopathy. Extremities/Skeleton: No evidence of focal uptake to suggest FDG avid neoplastic process. No FDG avid osseous lesions. No significant anatomical abnormality to the limits of low dose noncontrast CT scan. IMPRESSION: 1. HEAD and NECK: No evidence of focal uptake to suggest FDG avid neoplastic process.. 2. CHEST: FDG avid left upper lobe lung mass and multiple FDG avid nodules in bilateral lungs. FDG avid mediastinal and left hilar lymphadenopathy.. 3. ABDOMEN/PELVIS: FDG avid right renal mass likely primary.. 4. EXTREMITIES/SKELETON: No evidence of focal uptake to suggest FDG avid neoplastic process.. 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 guaiFENesin (MUCINEX) 600 mg 12 hr tablet Take 1 tablet by mouth two times a day. cholecalciferol, vitamin D3, (VITAMIN D3 ORAL) Take by mouth once daily. ZINC ORAL Take by mouth once daily. MAGNESIUM ORAL Take by mouth once daily. pantoprazole DR (PROTONIX) 40 mg tablet Take 1 tablet by mouth daily at 6 am. oemuqwmndrs-hhjjgyuoi-gxuwipxz (TRELEGY ELLIPTA) 100-62.5-25 mcg inhalation powder Inhale 1 Puff as instructed once daily. albuterol HFA (PROVENTIL HFA, VENTOLIN HFA) 90 mcg/actuation inhaler Inhale 2 Puffs as instructed every 4 hours as needed. Wheat Germ Oil oil Take 1 tablet by mouth once daily. (Patient not taking: Reported on 12/14/2023) cyanocobalamin, vitamin B-12, (VITAMIN B-12 ORAL) Take by mouth once daily. (Patient not taking: Reported on 12/14/2023) ascorbic acid (VITAMIN C ORAL) Take by mouth once daily. (Patient not taking: Reported on 12/14/2023) GARLIC ORAL Take by mouth once daily. (Patient not taking: Reported on 12/14/2023) OTC NUTRITIONAL SUPPLEMENT once daily. Beet root (Patient not taking: Reported on 12/14/2023) acetaminophen (TYLENOL) 325 mg tablet Take 2 tablets by mouth every 6 hours as needed for pain. (Patient not taking: Reported on 11/30/2023) Social History Tobacco Use Smoking status: Former Packs/day: 2.00 Years: 30.00 Additional pack years: 0.00 Total pack years: 60.00 Types: Cigarettes Quit date: 10/08/2023 Years since quittin.1 Smokeless tobacco: Former Types: Snuff, Chew Quit date: 01/08/1961 Substance Use Topics Alcohol use: Yes Comment: stating, occasionally. Drug use: No FAMILY HISTORY Problem Relation Age of Onset Breast Cancer Sister Heart disease Sister Heart disease Maternal Grandfather PAST SURGICAL HISTORY Procedure Laterality Date HERNIA REPAIR HX 2 PAST SURGICAL HISTORY OF Right repair of right ankle fracture PMH, Social history, family history and surgical history reviewed and updated in EMR REVIEW OF SYSTEMS: CONSTITUTIONAL: No fevers, chills, nightsweats. Unintentional weight loss HEENT: Denies nasal congestion/sinus symptoms, problematic allergy problems. EYES: No diplopia or blurry vision. CARDIOVASCULAR: No chest pain, palpitations, orthopnea, PND, edema. PULM: See HPI GI: Some dysphagia/odynophagia. No problematic reflux, diarrhea. Constipation : Hematuria NEURO: No new balance problems, peripheral weakness/paresthesias or numbness of concern. No recent syncope MUSC-SKEL: No new joint pain, swelling, or erythema. PSY: No concerns regarding depression, anxiety INTEGUMENTARY: No new skin changes or rashes PHYSICAL EXAMINATION: Wt 152 lb (68.9kg) BP 118/62, P 77, RR 16, SpO2 89% on RA General Appearance: Thin male, NAD. Skin: Skin color, texture, turgor normal, no suspicious rashes or lesions. Head: Normocephalic, no masses, lesions, tenderness or abnormalities. Eyes: Sclera, conjunctiva normal. Oropharynx: Neck: No JVD, no masses. Lungs: Not labored, inspiratory rhonchi. Heart: RRR, no murmur. Extremities: No edema. Clubbed digits. Lymph Nodes: No cervical lymphadenopathy and No supraclavicular lymphadenopathy. Assessment/Plan: Centrilobular emphysema -He will remain tobacco free -Did not qualify for portable oxygen. Will assess nocturnal oxygen -Started Trelegy Ellipta with as needed albuterol -Baseline pulmonary function testing Metastatic non-small cell lung cancer -Active treatment plan per oncology -Palliative care consultation Former cigarette smoker -Former heavy smoker with sequelae of emphysema and lung cancer -Continued abstinence Cachexia -Encouraged increased oral intake and continued use of nutritional supplements Yoanna Levin MD Respiratory [place] documented in this encounter [facility] 12-13-2023 Miscellaneous Notes I spoke with the patient's Cici today. The patient is active with [employer] Medicare, LOC 80%, $0.00 deductible has $0.00 remaining, $5400.00 OOP has $0.00 remaining. An estimate shows the patient's financial responsibility is $0.00 for each treatment in 2023 until the O-O-P max is reached. The patient stated understanding. Reference # [id number]. The patient's Cici started asking for help with her 's [facility] balance. I told her to call and set up an appointment with a PFA. I provided her with the different ways to set an appointment. I told her that if her is still going to be receiving treatment in 2024 I would look for financial assistance. Cost Facit documented in this encounter [facility] 12-12-2023 Note HNO ID: [id number] Author: SONJA ELIZALDE RD Service: ? Author Type: Registered Dietitian Type: Progress Notes Filed: 12/13/2023 16:41 Note Text: Called patient for phone visit - no answer. Left message to call back. 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 - polyethylene glycol 3350 (MIRALAX ORAL) Take by mouth as needed. - guaiFENesin (MUCINEX) 600 mg 12 hr tablet Take 1 tablet by mouth two times a day. - cholecalciferol, vitamin D3, (VITAMIN D3 ORAL) Take by mouth once daily. - cyanocobalamin, vitamin B-12, (VITAMIN B-12 ORAL) Take by mouth once daily. - ZINC ORAL Take by mouth once daily. - ascorbic acid (VITAMIN C ORAL) Take by mouth once daily. - GARLIC ORAL Take by mouth once daily. - OTC NUTRITIONAL SUPPLEMENT once daily. Beet root - MAGNESIUM ORAL Take by mouth once daily. - pantoprazole DR (PROTONIX) 40 mg tablet Take 1 tablet by mouth daily at 6 am. - acetaminophen (TYLENOL) 325 mg tablet Take 2 tablets by mouth every 6 hours as needed for pain. Disposition: Return in about 2 weeks (around 12/26/2023). Follow-up and Disposition History for Encounter Date Provider Department Center 12/12/2023 [id number], AMANDA JUSTEN Lindsay [facility] Encounter Status:Closed by SONJA ELIZALDE on 12/13/23 [facility] 12-12-2023 History of Presen t illness Narrative Called patient for phone visit - no answer. Left message to call back. documented in this encounter [facility] 11-30-2023 Note HNO ID: [id number] Author: ENIO BRANCH, ? Service: ? Author Type: Nurse Practitioner Type: Progress Notes Filed: 12/03/2023 16:12 Note Text: Santi Moore 1950 11/30/2023 HISTORY OF PRESENT ILLNESS: Santi Moore is [...] kidney mass. SCC is 85% PDL positive Interval History: Mr. Moore presents today for follow up with his spouse and daughter. Since last visit he had renal bx, path demonstrating SCC consistent with known lung ca. We reviewed path and disease staging. Per Dr. Dobson plan to continue with current treatment plan. Overall Mr. Moore has been fatigued, productive cough for several months, coughing a lot up. Has coughing fits worse in the morning, feels like he can't stop, starts to cough up blood tinged sputum. Ongoing issues since bronch. Worse in the mornings. Gives him a headaches at times. Low grade fevers on and off since April. Fatigued, stable. Appetite is ok. Denies N/V/C/D. No rash or skin changes. Denies new aches or pains Reviewed that many of these issues unlikely related to C1 keytruda as they started prior to his first infusion. PAST MEDICAL HISTORY Diagnosis Date CAD (coronary [...] Types: Cigarettes Quit date: 10/08/2023 Years since quittin.1 Smokeless tobacco: Former Types: Snuff, Chew Quit date: 01/08/1961 Substance Use Topics Alcohol use: Yes Comment: stating, occasionally. Drug use: No ALLERGIES: ALLERGIES No Known Allergies CURRENT OUTPATIENT MEDICATIONS: Wheat Germ Oil oil Take 1 tablet by mouth once daily. polyethylene glycol 3350 (MIRALAX ORAL) Take by mouth as needed. cholecalciferol, vitamin D3, (VITAMIN D3 ORAL) Take by mouth once daily. cyanocobalamin, vitamin B-12, (VITAMIN B-12 ORAL) Take by mouth once daily. ascorbic acid (VITAMIN C ORAL) Take by mouth once daily. GARLIC ORAL Take by mouth once daily. OTC NUTRITIONAL SUPPLEMENT once daily. Beet root MAGNESIUM ORAL Take by mouth once daily. pantoprazole DR (PROTONIX) 40 mg tablet Take 1 tablet by mouth daily at 6 am. ZINC ORAL Take by mouth once daily. acetaminophen (TYLENOL) 325 mg tablet Take 2 tablets by mouth every 6 hours as needed for pain. (Patient not taking: Reported on 11/30/2023) REVIEW OF SYSTEMS: GENERAL: No fever, night sweats, weight loss or malaise. All other reviewed and negative other than HPI. All systems reviewed on 11/30/2023 with pertinent positives and negatives as outlined in the interval history. PHYSICAL EXAMINATION: VITAL SIGNS: BP 119/69 Pulse 88 Temp (Src) 100.4 (Temporal) Wt 152 lb 8 oz (69.2kg) SpO2 89% GENERAL APPEARANCE: Well appearing, in no acute distress, alert and oriented x3, well-hydrated, well nourished. General: Age-appropriate well developed. Appears fatigued HEENT: Normocephalic, no sclera icterus, external ears normal Neck: Supple, no JVD. Chest: Clear diminished, bilaterally, no wheezes, not labored. pink tinged sputum Heart: Normal S1 and S2, no abnormal sounds Abdomen: Soft, nontender, nondistended Extremities: No edema Neurological: Grossly intact Skin: Warm and dry with no rashes or ulcerations. Hematologic: no bruising or petechiae. Psychiatric: Alert and oriented x3. Emotional well-being assessment was performed. Pt denies depression, distress, and or problems with coping or adjustment. I have performed the physical exam today (11/30/2023) and have edited the note to correlate with current findings. Labs: . Lab Results Component Value Date WBC 11.35 (H) 11/30/2023 HB 10.1 (L) 11/30/2023 MCV 83.4 11/30/2023 PLT 369 11/30/2023 Lab Results Component Value Date NA 134 (L) 11/30/2023 K 4.6 11/30/2023 CO2 29 11/30/2023 BUN 22 11/30/2023 CREAT 1.08 11/30/2023 TBILI 0.6 11/30/2023 TPROT 6.4 11/30/2023 ALB 3.1 (L) 11/30/2023 ALKPHOS 156 (H) 11/30/2023 ALT 16 11/30/2023 AST 12 (L) 11/30/2023 Imaging: CT Chest PE 10/08/23 IMPRESSION: Large left upper lobe mass with contiguous hilar lymphadenopathy, concerning for neoplasm. Surrounding groundglass o (more content not included)... [facility] 11-30-2023 Miscellaneous Notes SOCIAL WORK FOLLOW UP NOTE: [facility] Date of service: November 30, 2023 Santi Moore is being seen for a follow up social work visit. Today's visit includes: spouse TOPICS ADDRESSED: SW met with pt's this date. She reports needing assistance with co-pays, Keytruda and outstanding bills. SW referred to financial navigator this date via email and asked him to follow up with . Provided 's direct phone number. No other needs identified. PLAN: Assist with financial support applications and Continue follow up as needed F/U APPOINTMENT: PRN Assigned SW listed in Care Team tab: Yes DERIK Fernandez-Erlinda documented in this encounter [facility] 11-30-2023 History of Presen t illness Narrative Santi Moore 1950 11/30/2023 HISTORY OF PRESENT ILLNESS: Santi Moore is [...] kidney mass. SCC is 85% PDL positive Interval History: Mr. Moore presents today for follow up with his spouse and daughter. Since last visit he had renal bx, path demonstrating SCC consistent with known lung ca. We reviewed path and disease staging. Per Dr. Dobson plan to continue with current treatment plan. Overall Mr. Moore has been fatigued, productive cough for several months, coughing a lot up. Has coughing fits worse in the morning, feels like he can't stop, starts to cough up blood tinged sputum. Ongoing issues since bronch. Worse in the mornings. Gives him a headaches at times. Low grade fevers on and off since April. Fatigued, stable. Appetite is ok. Denies N/V/C/D. No rash or skin changes. Denies new aches or pains Reviewed that many of these issues unlikely related to C1 keytruda as they started prior to his first infusion. PAST MEDICAL HISTORY Diagnosis Date CAD (coronary [...] Types: Cigarettes Quit date: 10/08/2023 Years since quittin.1 Smokeless tobacco: Former Types: Snuff, Chew Quit date: 01/08/1961 Substance Use Topics Alcohol use: Yes Comment: stating, occasionally. Drug use: No ALLERGIES: ALLERGIES No Known Allergies CURRENT OUTPATIENT MEDICATIONS: Wheat Germ Oil oil Take 1 tablet by mouth once daily. polyethylene glycol 3350 (MIRALAX ORAL) Take by mouth as needed. cholecalciferol, vitamin D3, (VITAMIN D3 ORAL) Take by mouth once daily. cyanocobalamin, vitamin B-12, (VITAMIN B-12 ORAL) Take by mouth once daily. ascorbic acid (VITAMIN C ORAL) Take by mouth once daily. GARLIC ORAL Take by mouth once daily. OTC NUTRITIONAL SUPPLEMENT once daily. Beet root MAGNESIUM ORAL Take by mouth once daily. pantoprazole DR (PROTONIX) 40 mg tablet Take 1 tablet by mouth daily at 6 am. ZINC ORAL Take by mouth once daily. acetaminophen (TYLENOL) 325 mg tablet Take 2 tablets by mouth every 6 hours as needed for pain. (Patient not taking: Reported on 11/30/2023) REVIEW OF SYSTEMS: GENERAL: No fever, night sweats, weight loss or malaise. All other reviewed and negative other than HPI. All systems reviewed on 11/30/2023 with pertinent positives and negatives as outlined in the interval history. PHYSICAL EXAMINATION: VITAL SIGNS: BP 119/69 Pulse 88 Temp (Src) 100.4 (Temporal) Wt 152 lb 8 oz (69.2kg) SpO2 89% GENERAL APPEARANCE: Well appearing, in no acute distress, alert and oriented x3, well-hydrated, well nourished. General: Age-appropriate well developed. Appears fatigued HEENT: Normocephalic, no sclera icterus, external ears normal Neck: Supple, no JVD. Chest: Clear diminished, bilaterally, no wheezes, not labored. pink tinged sputum Heart: Normal S1 and S2, no abnormal sounds Abdomen: Soft, nontender, nondistended Extremities: No edema Neurological: Grossly intact Skin: Warm and dry with no rashes or ulcerations. Hematologic: no bruising or petechiae. Psychiatric: Alert and oriented x3. Emotional well-being assessment was performed. Pt denies depression, distress, and or problems with coping or adjustment. I have performed the physical exam today (11/30/2023) and have edited the note to correlate with current findings. Labs: . Lab Results Component Value Date WBC 11.35 (H) 11/30/2023 HB 10.1 (L) 11/30/2023 MCV 83.4 11/30/2023 PLT 369 11/30/2023 Lab Results Component Value Date NA 134 (L) 11/30/2023 K 4.6 11/30/2023 CO2 29 11/30/2023 BUN 22 11/30/2023 CREAT 1.08 11/30/2023 TBILI 0.6 11/30/2023 TPROT 6.4 11/30/2023 ALB 3.1 (L) 11/30/2023 ALKPHOS 156 (H) 11/30/2023 ALT 16 11/30/2023 AST 12 (L) 11/30/2023 Imaging: CT Chest PE 10/08/23 IMPRESSION: Large left upper lobe mass with contiguous hilar lymphadenopathy, concerning for neoplasm. Surrounding groundglass opacity and septal thickening concerning for lymphangitic spread. Few pulmonary nodules in other lobes, possibly metastatic but indeterminate. PET IMPRESSION: 1. HEAD and NECK: No evidence of focal uptake to suggest FDG avid neoplastic process.. 2. CHEST: FDG avid left upper lobe lung mass and multiple FDG avid nodules in bilateral lungs. FDG avid mediastinal and left hilar lymphadenopathy.. 3. ABDOMEN/PELVIS: FDG avid right renal mass likely primary.. 4. EXTREMITIES/SKELETON: No evidence of focal uptake to suggest FDG avid neoplastic process.. Renal mass bx: 11/13/23 FINAL DIAGNOSIS A. Kidney, right mass, biopsy: - Carcinoma with squamous differentiation (see comment). CLINICAL IMPRESSION: SCC left lung with mediastinal adenopathy and contralateral nodules FDG avid. As such stage IV - Right renal mass, bx on 10/31/23 path with squamous differentiation, reviewed with patient and family today. - MRI brain 10/11/2024 negative - Pt and spouse expressed concerns re: copays of visits and imaging. Will discuss with B[employer]OP TECHNICIAN RECOMMENDATION/PLAN: Plan SA pembrolizumab and PDL positivity - C1D1 11/12/2023 - plan for C2 next week, pending remaining labs - consult SW Cough, acute on chronic - suspect infectious, productive ongoing for months - low grade fevers - will send ABX, mucinex today - low threshold to repeat CT Advised to present to ED with worsening cough or increased bleeding Enio Branch, [place].IN[employer] SPECIAL EDUCATION TEACHER I spent >50 minutes in the visit, with more than 50% of the total [id number] time of the visit in counseling / coordination of care. Portions of this note including HPI, ROS, impression/plan may have been copied forward as to provide important historical information essential in contributing to medical decision making. Documentation has been reviewed and edited as necessary to support clinical decision making for today's visit and to reflect my own independent evaluation of this patient. documented in this encounter [facility] 11-28-2023 Miscellaneous Notes [place] Care Coordination FOLLOW-UP NOTE Patient identified by name and date of . YES Spoke to patient Summary: (Reason for follow-up) Call to patient for update on cough. States still has but not denies that it is worse. Productive, sometime pink tinged and sometimes green Denies increase in shortness of breath or other issues or concerns. He denies any needs. Patient verbalized when to seek Medical Attention and an understanding of after- hours phone number and process: Yes Care Coordination Plan: No further follow up needed at this time and reminded patient of lab/OV 11/30/23. Aimee Lee RN November 28, 2023 documented in this encounter [facility] 11-21-[address] Dobson aware and we should monitor. Patient has follow up with Enio 11/23/23. Lorraine Lee RN TOXICITY CHECK SYMPTOM ASSESSMENT The patient is on Pembro Headache: No Visual Changes: No Dizziness: No Do you have any periods of confusion? No Mood changes: No Mouth or throat pain: No Appetite: no changes in appetite, appetite fair Eating: beans, cottage cheese, tomatoes, austin crackers Fluid intake: 4 Ensures daily along with 3-4 bottles (16.9oz) of water daily Taste changes: No Nausea: No Vomiting: No Heartburn: No. Weight gain/loss: Unable to assess Episodes of palpitations/chest discomfort/pressure/pain No Shortness of breath: Yes no changes from baseline Cough: Yes; cough is not new, worse at night when he go to bed and lies down. It is productive, blood streaked sputum noted that started last pm and noticed again this am. States pink color, no clots. Coughing does not keep patient from sleeping, he will wake up with cough but go right back to sleep. Instructed patient to call us if any worsening in symptoms. Diarrhea: no Constipation: yes, last BM 2 days ago. Had a day of constipation this past week, used Miralax with good results. Denies cramping or abdominal pain. Instructed to take Miralax again today and take daily if needed to get BM's more regular. Bladder/Urinary Changes: None Pain: No=0 (pain 0 on a scale of 0-10). Fever: No Chills: No Cold sensitivity: No Numbness/weakness: No Edema: No Skin changes: No Itching: No Yellowing of skin or eyes: No Musculoskeletal/joint changes/issues No Bleeding issues: No Activity Level (0-100%): decreased Does the patient need interventions or same day appointment:No Reinforced CURRENT treatment education based on current and anticipated symptoms. Discussed port/line care and patient verbalizes understanding: Not Applicable Patient instructed to contact office or after hours Hematology/Oncology fellow for: temperature ? 100.4; questions or concerns. Patient verbalized understanding of when to seek medical attention and after hours number protocol. Aimee Lee RN Patient's , Cici, called in stating that the patient is coughing up blood starting last night. With further information patient started having blood tinged and pink sputum last night. concerned. Per the patient has had a cough. Pt is scheduled with Enio on 11/30/[address] Levin scheduled for 12/14/23. asking if there is any testing that needs to be done or if the patient needs to be seen sooner. Please review and advise. Jenny Stallworth RN Patient's spouse Cici called in asking to speak with Lorraine. She stated they were told they could call her with questions. She stated she has some questions for Lorraine about Santi. Please call her back when able at [phone] Lissette Kincaid documented in this encounter [facility] 11-21-2023 Note HNO ID: [id number] Author: SONJA ELIZALDE RD Service: ? Author Type: Registered Dietitian Type: Progress Notes Filed: 11/23/2023 08:59 Note Text: Oncology Nutrition Therapy Initial Assessment I have communicated my name and active licensure. The patient's identity and physical location were verified at the time of this visit. Either the patient or their legal sales support representative has been informed of the risks and benefits of -- and alternatives to -- treatment through a remote evaluation and consents to proceed with the evaluation remotely. RECOMMENDED MALNUTRITION DIAGNOSIS: SEVERE PROTEIN-CALORIE MALNUTRITION from chart review. No NFPE COMPLETED. In the context of Chronic Illness or Injury based on: Unintentional Weight Loss: >5% in 1 month Insufficient Energy Intake: Less than 75% energy intake compared to estimated needs for greater than or equal to 1 month Patient Condition: Pt presents for nutrition counseling for squamous cell carcinoma of lung, right renal. Pt is currently being treated with SA pebrolizumab. Patient symptoms: Poor appetite Constipation - 1 week - started miralax once. Last BM: couple days ago Diet History Ensure Original and Plus (or protein drink) 3-4 bottles per day 3-4 bottles of water Eats: Cottage cheese and tomatoes, navy beans, [employer] Chicken Noodle soup, Few austin crackers, chips Weight loss since first week of April. Social- moved from [place] Anthropometrics: HEIGHT/WEIGHT/BSA HEIGHT BODY SURFACE AREA WEIGHT 10/17/2023 5' 10 1.92 165 lb 10/24/2023 5' 10 1.92 164 lb 10/31/2023 5' 10 1.89 160 lb 11/12/2023 1.85 153 lb Estimated body mass index is 21.95 kg/m? as calculated from the following: Height as of 10/31/23: 177.8 cm (5' 10 ). Weight as of 11/12/23: 69.4 kg (153 lb). Resting Metabolic Rate: 1450 Weight Change: 7.3% weight loss in one month Allergies: Patient has no known allergies. Medications: Current Outpatient Medications Medication Sig Dispense Refill cholecalciferol, vitamin D3, (VITAMIN D3 ORAL) Take [...] tablet by mouth daily at 6 am. 30 tablet 1 acetaminophen (TYLENOL) 325 mg tablet Take 2 tablets by mouth every 6 hours as needed for pain. No current facility-administered medications for this visit. Need for Follow up: 2-4 weeks Referred/Supervised by: Dr. 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 - cyanocobalamin, vitamin B-12, (VITAMIN B-12 ORAL) Take by mouth once daily. - ZINC ORAL Take by mouth once daily. - ascorbic acid (VITAMIN C ORAL) Take by mouth once daily. - GARLIC ORAL Take by mouth once daily. - OTC NUTRITIONAL SUPPLEMENT once daily. Beet root - MAGNESIUM ORAL Take by mouth once daily. - pantoprazole DR (PROTONIX) 40 mg tablet Take 1 tablet by mouth daily at 6 am. - acetaminophen (TYLENOL) 325 mg tablet Take 2 tablets by mouth every 6 hours as needed for pain. Encounter Status:Closed by SONJA ELIZALDE on 11/23/23 [facility] 11-21-2023 History of Presen t illness Narrative Oncology Nutrition Therapy Initial Assessment I have communicated my name and active licensure. The patient's identity and physical location were verified at the time of this visit. Either the patient or their legal sales support representative has been informed of the risks and benefits of -- and alternatives to -- treatment through a remote evaluation and consents to proceed with the evaluation remotely. RECOMMENDED MALNUTRITION DIAGNOSIS: SEVERE PROTEIN-CALORIE MALNUTRITION from chart review. No NFPE COMPLETED. In the context of Chronic Illness or Injury based on: Unintentional Weight Loss: >5% in 1 month Insufficient Energy Intake: Less than 75% energy intake compared to estimated needs for greater than or equal to 1 month Patient Condition: Pt presents for nutrition counseling for squamous cell carcinoma of lung, right renal. Pt is currently being treated with SA pebrolizumab. Patient symptoms: Poor appetite Constipation - 1 week - started miralax once. Last BM: couple days ago Diet History Ensure Original and Plus (or protein drink) 3-4 bottles per day 3-4 bottles of water Eats: Cottage cheese and tomatoes, navy beans, [employer] Chicken Noodle soup, Few austin crackers, chips Weight loss since first week of April. Social- moved from [place] Anthropometrics: HEIGHT/WEIGHT/BSA HEIGHT BODY SURFACE AREA WEIGHT 10/17/2023 5' 10 1.92 165 lb 10/24/2023 5' 10 1.92 164 lb 10/31/2023 5' 10 1.89 160 lb 11/12/2023 1.85 153 lb Estimated body mass index is 21.95 kg/m as calculated from the following: Height as of 10/31/23: 177.8 cm (5' 10 ). Weight as of 11/12/23: 69.4 kg (153 lb). Resting Metabolic Rate: 1450 Weight Change: 7.3% weight loss in one month Allergies: Patient has no known allergies. Medications: Current Outpatient Medications Medication Sig Dispense Refill cholecalciferol, vitamin D3, (VITAMIN D3 ORAL) Take [...] tablet by mouth daily at 6 am. 30 tablet 1 acetaminophen (TYLENOL) 325 mg tablet Take 2 tablets by mouth every 6 hours as needed for pain. No current facility-administered medications for this visit. Need for Follow up: 2-4 weeks Referred/Supervised by: Dr. Lexa PETER Billing Type: Re-assess/15 min 2 units Billed Time: 30 minutes Signed by: Sonja Elizalde RD, LD documented in this encounter [facility] 11-16-2023 Note Education (JUSTEN) SANTI MOORE ([id number]) 1950 M Date Time Provider Department 11/16/23 2:30 PM SONJA ELIZALDE Reason for Visit: Nutrition Telephone [2013] Cmt: Unable to reach Visit Diagnoses:Squamous carcinoma of lung, left (HCC) [C34.92] Severe protein-calorie malnutrition (HCC) [E43] Order(s):CONSULT TO ONCOLOGY NUTRITION [[id number]] Order #: [id number]: 1 During your visit today, we recorded the following information about you: Allergies As of Date: 11/16/2023 (No Known Allergies) Date Reviewed: 11/12/2023 Reviewed by: Micki Franco RN - Fully Assessed Prescriptions as of 11/16/2023 - cholecalciferol, vitamin D3, (VITAMIN D3 ORAL) Take by mouth once daily. - cyanocobalamin, vitamin B-12, (VITAMIN B-12 ORAL) Take by mouth once daily. - ZINC ORAL Take by mouth once daily. - ascorbic acid (VITAMIN C ORAL) Take by mouth once daily. - GARLIC ORAL Take by mouth once daily. - OTC NUTRITIONAL SUPPLEMENT once daily. Beet root - MAGNESIUM ORAL Take by mouth once daily. - pantoprazole DR (PROTONIX) 40 mg tablet Take 1 tablet by mouth daily at 6 am. - acetaminophen (TYLENOL) 325 mg tablet Take 2 tablets by mouth every 6 hours as needed for pain. Encounter Status:Closed by SONJA ELIZALDE on 11/16/23 [facility] 11-16-2023 Note HNO ID: [id number] Author: SONJA ELIZALDE RD Service: ? Author Type: Registered Dietitian Type: Progress Notes Filed: 11/16/2023 17:11 Note Text: Oncology Nutrition Therapy Initial Assessment I have communicated my name and active licensure. The patient's identity and physical location were verified at the time of this visit. Either the patient or their legal sales support representative has been informed of the risks and benefits of -- and alternatives to -- treatment through a remote evaluation and consents to proceed with the evaluation remotely. Unable to reach patient by phone - tried three numbers and left voicemail. RECOMMENDED MALNUTRITION DIAGNOSIS: SEVERE PROTEIN-CALORIE MALNUTRITION from chart review. No NFPE COMPLETED. In the context of Chronic Illness or Injury based on: Unintentional Weight Loss: >5% in 1 month Insufficient Energy Intake: Less than 75% energy intake compared to estimated needs for greater than or equal to 1 month Patient Condition: Pt presents for nutrition counseling for squamous cell carcinoma of lung, right renal. Pt is currently being treated with SA pebrolizumab. Anthropometrics: HEIGHT/WEIGHT/BSA HEIGHT BODY SURFACE AREA WEIGHT 10/17/2023 5' 10 1.92 165 lb 10/24/2023 5' 10 1.92 164 lb 10/31/2023 5' 10 1.89 160 lb 11/12/2023 1.85 153 lb Estimated body mass index is 21.95 kg/m? as calculated from the following: Height as of 10/31/23: 177.8 cm (5' 10 ). Weight as of 11/12/23: 69.4 kg (153 lb). Resting Metabolic Rate: 1450 Weight Change: 7.3% weight loss in one month Allergies: Patient has no known allergies. Medications: Current Outpatient Medications Medication Sig Dispense Refill cholecalciferol, vitamin D3, (VITAMIN D3 ORAL) Take [...] tablet by mouth daily at 6 am. 30 tablet 1 acetaminophen (TYLENOL) 325 mg tablet Take 2 tablets by mouth every 6 hours as needed for pain. No current facility-administered medications for this visit. Need for Follow up: needs to be rescheduled Referred/Supervised by: Dr. Lexa PETER Billing Type: Unable to reach Billed Time: 0 minutes Signed by: Sonja Elizalde RD, GENA [facility] 11-16-2023 Miscellaneous Notes Daughter called stating they just missed a call from you, Patient and spouse are not home and spouse left her phone at home requesting a return call on patients phone at [phone] documented in this encounter [facility] 11-16-2023 History of Presen t illness Narrative Oncology Nutrition Therapy Initial Assessment I have communicated my name and active licensure. The patient's identity and physical location were verified at the time of this visit. Either the patient or their legal sales support representative has been informed of the risks and benefits of -- and alternatives to -- treatment through a remote evaluation and consents to proceed with the evaluation remotely. Unable to reach patient by phone - tried three numbers and left voicemail. RECOMMENDED MALNUTRITION DIAGNOSIS: SEVERE PROTEIN-CALORIE MALNUTRITION from chart review. No NFPE COMPLETED. In the context of Chronic Illness or Injury based on: Unintentional Weight Loss: >5% in 1 month Insufficient Energy Intake: Less than 75% energy intake compared to estimated needs for greater than or equal to 1 month Patient Condition: Pt presents for nutrition counseling for squamous cell carcinoma of lung, right renal. Pt is currently being treated with SA pebrolizumab. Anthropometrics: HEIGHT/WEIGHT/BSA HEIGHT BODY SURFACE AREA WEIGHT 10/17/2023 5' 10 1.92 165 lb 10/24/2023 5' 10 1.92 164 lb 10/31/2023 5' 10 1.89 160 lb 11/12/2023 1.85 153 lb Estimated body mass index is 21.95 kg/m as calculated from the following: Height as of 10/31/23: 177.8 cm (5' 10 ). Weight as of 11/12/23: 69.4 kg (153 lb). Resting Metabolic Rate: 1450 Weight Change: 7.3% weight loss in one month Allergies: Patient has no known allergies. Medications: Current Outpatient Medications Medication Sig Dispense Refill cholecalciferol, vitamin D3, (VITAMIN D3 ORAL) Take [...] tablet by mouth daily at 6 am. 30 tablet 1 acetaminophen (TYLENOL) 325 mg tablet Take 2 tablets by mouth every 6 hours as needed for pain. No current facility-administered medications for this visit. Need for Follow up: needs to be rescheduled Referred/Supervised by: Dr. Lexa PETER Billing Type: Unable to reach Billed Time: 0 minutes Signed by: Sojna Elizalde RD, GENA documented in this encounter [facility] 11-12-2023 Note HNO ID: [id number] Author: MICKI FRANCO RN Service: ? Author Type: Registered Nurse Type: Progress Notes Filed: 11/12/2023 11:03 Note Text: Vitals WNL except for BP 93/62, which is lower compared to previous visit. Pt denies fever but reports loss of appetite. Encouraged pt to stay hydrated as much as he can. Has nutrition consult on 11/16 with Sonja. Pt offered different flavors of ensure. Dr. Dia notified about elevated BUN, WBC and platelets. OK to treat today. [facility] 10-31-2023 Note HNO ID: [id number] Author: AIMEE LEE RN Service: ? Author Type: Registered Nurse Type: Progress Notes Filed: 10/31/2023 17:00 Note Text: Patient teaching was completed over the phone. Aimee Lee RN [facility] 10-31-2023 Note HNO ID: [id number] Author: AIMEE LEE RN Service: ? Author Type: Registered Nurse Type: Progress Notes Filed: 10/31/2023 17:00 Note Text: Overnight Stocker Pre Chemo Patient identified by name and date of . YES Confirmed date and time for chemotherapy ? YES Other appointments (labs, imaging) discussed? 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 NO Described the infusion room and what to expect. (What to wear, what to bring [iPad, books] amount of time treatment can take, meals and CC options for food) YES Note: na Discussed whether the patient can eat prior to labs and treatment. YES Who is driving you to and from treatment? Spouse Discussed why it is important to bring someone with you. Yes, first treatment Resources discussed (music therapy, Art therapy, pet therapy, etc.) YES Education on chemotherapy (drug, side effects) discussed and that the patient will be receiving a C1D1 call within 7 days of treatment. YES Other topics discussed, interventions needed: ezekiel Lee RN [facility] 10-31-2023 Note HNO ID: [id number] Author: AIMEE LEE RN Service: ? Author Type: Registered Nurse Type: Progress Notes Filed: 10/31/2023 17:00 Note Text: ONCOLOGY PATIENT EDUCATION NOTE TOPIC: Immunotherapy, Medications: Keytruda READINESS TO LEARN: COGNITIVE ABILITY: Alert and oriented MOTIVATION TO LEARN: Interested FAMILY SUPPORT: High - Very involved in pt care INSTRUCTION PROVIDED TO: Patient, Spouse, and Daughter INSTRUCTION PROVIDED BY: Nurse Coordinator PATIENT LEARNS BEST BY: Multiple Methods FACTORS AFFECTING LEARNING: None PHYSICAL LIMITATIONS AFFECTING LEARNING: None LEARNING RESPONSE DIAGNOSIS: Lung Cancer METHOD OF INSTRUCTION: Individual instruction Written instruction - handouts Verbal instruction PATIENT/FAMILY RESPONSE: Verbalizes understanding of: CHEMOTHERAPY-Regimen, toxicity and side effects FOLLOW UP PLAN: Recommend - Recommend continued instruction and follow up as directed Contact information given. SUPPLEMENTAL MATERIAL: Written material was provided at this visit with the following information: - Immunotherapy education was provided by a pharmacist NO - Side effect management information was provided/discussed including but not limited to: abdominal discomfort, arthralgia, bowel habit changes, electrolyte disturbances, fatigue, hypersensitivity reaction, kidney toxicity, myalgia, rash, shortness of breath, skin changes, vision disorder/distrubance YES - Provided important phone numbers and contacts during and after hours. YES - Provided information on symptoms that require immediate assistance. YES - Provided Immunotherapy when to call handouts YES - Preventing infection. YES - Treatment schedule and confirmation of appointment times. YES - Available support groups. YES - The importance of contraception during the course of chemotherapy NA - Neutropenic fever protocol discussed with patient, which included the importance of reporting any fever of 100.4F (38.0C) or greater to the healthcare team as noted on the provided wallet card and/or magnet. YES Time Spent: 60 minutes REFERRAL (RECOMMENDATION): Social Work, to call at a later time. Aimee Lee RN [facility] 10-24-2023 Note HNO ID: [id number] Author: LOC DOBSON MD Service: ? Author [...] which included preparing to see the patient, [id number] patient care, completing clinical documentation, obtaining and/or reviewing separately obtained history, performing a medically appropriate examination, counseling and educating the patient/family/caregiver, ordering medications, tests, or procedures, communicating with other HCPs (not separately reported), independently interpreting results (not separately reported), communicating results to the patient/family/caregiver, and care coordination (not separately reported). Electronically Signed: Loc Dobson MD October 24, 2023 8:50 AM [facility] 10-19-2023 Note HNO ID: [id number] Author: RACHAEL GARVEY RT(R) Service: Nuclear Medicine [...] 0734 PATIENT DISCHARGED TO: Ambulatory patient, left [place] department area. A Diagnostic radioactive procedure has taken place, with no further precautions necessary other than routine body substance precautions. More information regarding radiation safety can be found using this link: [email or web address] SIGNATURE: RT Dave(R) PATIENT NAME: Santi Moore DATE: October 19, 2023 TIME: 7:49 AM PAGER/CONTACT #: [facility] 10-11-2023 Note HNO ID: [id number] Author: Kimmie Gibbs APRN.[employer] SPECIAL EDUCATION TEACHER Service: Cardiovascular Medicine Author Type: Nurse Practitioner [...] Radiology: Laboratory: Reviewed Other: SIGNATURE: Kimmie Gibbs APRN.[employer] SPECIAL EDUCATION TEACHER CELL TEXT : [phone] DATE: October 11, 2023 TIME: 1:[address] [facility] 10-10-2023 Note HNO ID: [id number] Author: Fifi Jacobo MD Service: General Internal [...] -- 10/09/23 0815 activity - mobilize patient ([place], [place]) VTE Prophylaxis: VTE prophylaxis appropriate SIGNATURE: Fifi Jacobo MD PATIENT NAME: Santi Moore [facility] 10-09-2023 Note HNO ID: [id number] Author: Marilyn Lopes RN Service: ? Author Type: Registered Nurse Type: Nursing Progress Note Filed: 10/09/2023 9:00 AM Note Text: Dr. Dobson was contacted regarding consult.not Doug [facility] documented as of this encounter (statuses as of 11/17/2023) [facility] History of Past illness Narrative* Problem Noted Date Diagnosed Date Resolved Date Leukocytosis 10/08/2023 10/11/2023 Syncope 10/08/2023 10/11/2023 documented as of this encounter (statuses as of 11/22/2023) [facility] History of Past illness Narrative* Problem Noted Date Diagnosed Date Resolved Date Leukocytosis 10/08/2023 10/11/2023 Syncope 10/08/2023 10/11/2023 documented as of this encounter (statuses as of 11/23/2023) [facility] History of Past illness Narrative* Problem Noted Date Diagnosed Date Resolved Date Leukocytosis 10/08/2023 10/11/2023 Syncope 10/08/2023 10/11/2023 documented as of this encounter (statuses as of 11/28/2023) [facility] History of Past illness Narrative* Problem Noted Date Diagnosed Date Resolved Date Leukocytosis 10/08/2023 10/11/2023 Syncope 10/08/2023 10/11/2023 documented as of this encounter (statuses as of 11/30/2023) [facility] of Past illness Narrative* Problem Noted Date Diagnosed Date Resolved Date Leukocytosis 10/08/2023 10/11/2023 Syncope 10/08/2023 10/11/2023 documented as of this encounter (statuses as of 12/03/2023) [facility] of Past illness Narrative* Problem Noted Date Diagnosed Date Resolved Date Leukocytosis 10/08/2023 10/11/2023 Syncope 10/08/2023 10/11/2023 documented as of this encounter (statuses as of 12/03/2023) [facility] of Past illness Narrative* Problem Noted Date Diagnosed Date Resolved Date Leukocytosis 10/08/2023 10/11/2023 Syncope 10/08/2023 10/11/2023 documented as of this encounter (statuses as of 12/07/2023) [facility] of Past illness Narrative* Problem Noted Date Diagnosed Date Resolved Date Leukocytosis 10/08/2023 10/11/2023 Syncope 10/08/2023 10/11/2023 documented as of this encounter (statuses as of 12/14/2023) [facility] of Past illness Narrative* Problem Noted Date Diagnosed Date Resolved Date Leukocytosis 10/08/2023 10/11/2023 Syncope 10/08/2023 10/11/2023 documented as of this encounter (statuses as of 12/14/2023) [facility] of Past illness Narrative* Problem Noted Date Diagnosed Date Resolved Date Leukocytosis 10/08/2023 10/11/2023 Syncope 10/08/2023 10/11/2023 documented as of this encounter (statuses as of 12/14/2023) [facility] of Past illness Narrative* Problem Noted Date Diagnosed Date Resolved Date Leukocytosis 10/08/2023 10/11/2023 Syncope 10/08/2023 10/11/2023 documented as of this encounter (statuses as of 12/14/2023) [facility] of Past illness Narrative* Problem Noted Date Diagnosed Date Resolved Date Leukocytosis 10/08/2023 10/11/2023 Syncope 10/08/2023 10/11/2023 documented as of this encounter (statuses as of 12/14/2023) [facility] History of Present illness Narrative* Explains he has been having some difficulty with some right wrist swollen and painful since Sunday,using hammer. Has been having more difficulty with using the wrist since this time. Denies any fever chills denies any nausea vomiting diarrhea constipation. * A year ago patient fell and hurt right wrist. [facility] Work Phone: Evaluation note* Diagnosis Squamous carcinoma of lung, left (HCC) Severe protein-calorie malnutrition (HCC) Other severe protein-calorie malnutrition [facility] Diagnosis Severe protein-calorie malnutrition (HCC)- Primary Other severe protein-calorie malnutrition Squamous cell carcinoma lung, left [facility]HCC[facility] carcinoma lung, left (HCC)- Primary [facility] Diagnosis Squamous cell carcinoma lung, left (HCC)- Primary Cough, unspecified type Acute upper respiratory infection Acute upper respiratory infections of unspecified site [facility] Severe protein-calorie malnutrition (HCC)- Primary Other severe protein-calorie malnutrition Squamous cell carcinoma lung, left (HCC) Weight loss, unintentional Loss of weight [facility] Diagnosis Centrilobular emphysema (HCC) Other emphysema [facility] Diagnosis Centrilobular emphysema (HCC)- Primary Other emphysema Metastatic non-small cell lung cancer (HCC) Former cigarette smoker Personal history of tobacco use, presenting hazards to health Cachexia (HCC) Cachexia documented in this encounter [facility] for referral (narrative)* Outpatient Procedure (Routine) - Authorized Specialty Diagnoses / Procedures Referred By Contac t Referred To Contact [facility] Diagnoses Centrilobular emphysema (HCC) Procedures LUNG DIFFUSION CAPACITY (DLCO) DIFFUSING CAPACITY Yoanna Levin MD [address] [place] [address] [place] [address] Referral ID Status Reason Start Date Expiration Date Visits Requested Visits Authorized [id number] Authorized Auto-Generat ed Referral 12/14/2023 01/12/2025 1 1 * Outpatient Procedure (Routine) - Pending Review Specialty Diagnoses / Procedures Referred By Contac t Referred To Contact [facility] Diagnoses Centrilobular emphysema (HCC) Procedures LUNG VOLUMES Yoanna Levin MD [address] [place] [address] [address] Referral ID Status Reason Start Date Expiration Date Visits Requested Visits Authorized [id number] Pending Review Auto-Generat ed Referral 12/14/2023 01/12/2025 1 1 * Outpatient Procedure (Routine) - Authorized Specialty Diagnoses / Procedures Referred By Contac t Referred To Contact [facility] Diagnoses Centrilobular emphysema (HCC) Procedures SPIROMETRY WITH DILATOR IF OBSTRUCTED BRNCDILAT RSPSE SPMTRY PRE&POST-BRNCDILAT ADMN Yoanna Levin MD [address] [place] [address] [id number] [place] [address] Referral ID Status Reason Start Date Expiration Date Visits Requested Visits Authorized [id number] Authorized Auto-Generat ed Referral 12/14/2023 01/12/2025 1 1 * Consult, Test, Treat (Routine) - Authorized Specialty Diagnoses / Procedures Referred By Contac t Referred To Contact Diagnoses Centrilobular emphysema (HCC) Metastatic non-small cell lung cancer (HCC) Procedures CONSULT TO PALLIATIVE CARE OFFICE/OUTPATIENT [facility] 60 MINUTES Yoanna Levin MD [address] [place] [address] Referral ID Status Reason Start Date Expiration Date Visits Requested Visits Authorized [id number] Authorized PCP Requested Referral 12/14/2023 12/13/2024 1 1 * Outpatient Procedure (Routine) - Closed Specialty Diagnoses / Procedures Referred By Contac t Referred To Contact [facility] Diagnoses Centrilobular emphysema (HCC) Procedures OXIMETRY WITH AMBULATION NONINVASIVE EAR/PULSE OXIMETRY MULTIPLE Yoanna Khan MD [address] [place] [address] [address] Referral ID Status Reason Start Date Expiration Date V isits Requested Visits Authorized [id number] Closed Auto-Generate d Referral 12/14/2023 01/12/2025 1 1 [facility] Summary Purpose Family History No Family History [...] Status:Active Advance Directives No Advanced Directives Records FoundDocuments on File Type Date Recorded 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 Additional Source Comments (unrecognized sect ion and content) No Status Records FoundNo Status Records FoundNo Status Records FoundNo Status Records FoundNo Status Records FoundNo Status Records Found INFORMATION SOURCE (unrecogn ized section and content) DATE CREATED AUTHOR AUTHOR'S ORGANIZ ATION 07/28/2021 [facility] DATE CREATED AUTHOR AUTHOR'S ORGANIZ ATION 08/04/2021 [facility] DATE CREATED AUTHOR AUTHOR'S ORGANIZ ATION 10/20/2023 [facility] DATE CREATED AUTHOR AUTHOR'S ORGANIZ ATION 11/30/2023 [facility] DATE CREATED AUTHOR AUTHOR'S ORGANIZ ATION 12/14/2023 [facility] Source Comments (unrecognize d section and content) In the event this informatio n is protected by the Federal Confidentiality of Alcohol and Drug Abuse Patient Records regulations: The Federal rules restrict any use of the information to criminally investigate or prosecute any alcohol or drug abuse patient.[facility] SystemIn the event this information is protected by the Federal Confidentiality of Alcohol and Drug Abuse Patient Records regulations: The Federal rules restrict any use of the information to criminally investigate or prosecute any alcohol or drug abuse patient.[facility] SystemIn the event this information is protected by the Federal Confidentiality of Alcohol and Drug Abuse Patient Records regulations: The Federal rules restrict any use of the information to criminally investigate or prosecute any alcohol or drug abuse patient.[facility] SystemIn the event this information is protected by the Federal Confidentiality of Alcohol and Drug Abuse Patient Records regulations: The Federal rules restrict any use of the information to criminally investigate or prosecute any alcohol or drug abuse patient.[facility] SystemIn the event this information is protected by the Federal Confidentiality of Alcohol and Drug Abuse Patient Records regulations: The Federal rules restrict any use of the information to criminally investigate or prosecute any alcohol or drug abuse patient.[facility] SystemIn the event this information is protected by the Federal Confidentiality of Alcohol and Drug Abuse Patient Records regulations: The Federal rules restrict any use of the information to criminally investigate or prosecute any alcohol or drug abuse patient.[facility] SystemIn the event this information is protected by the Federal Confidentiality of Alcohol and Drug Abuse Patient Records regulations: The Federal rules restrict any use of the information to criminally investigate or prosecute any alcohol or drug abuse patient.[facility] SystemIn the event this information is protected by the Federal Confidentiality of Alcohol and Drug Abuse Patient Records regulations: The Federal rules restrict any use of the information to criminally investigate or prosecute any alcohol or drug abuse patient.[facility] SystemIn the event this information is protected by the Federal Confidentiality of Alcohol and Drug Abuse Patient Records regulations: The Federal rules restrict any use of the information to criminally investigate or prosecute any alcohol or drug abuse patient.[facility] SystemIn the event this information is protected by the Federal Confidentiality of Alcohol and Drug Abuse Patient Records regulations: The Federal rules restrict any use of the information to criminally investigate or prosecute any alcohol or drug abuse patient.[facility] SystemIn the event this information is protected by the Federal Confidentiality of Alcohol and Drug Abuse Patient Records regulations: The Federal rules restrict any use of the information to criminally investigate or prosecute any alcohol or drug abuse patient.[facility] SystemIn the event this information is protected by the Federal Confidentiality of Alcohol and Drug Abuse Patient Records regulations: The Federal rules restrict any use of the information to criminally investigate or prosecute any alcohol or drug abuse patient.[facility] SystemIn the event this information is protected by the Federal Confidentiality of Alcohol and Drug Abuse Patient Records regulations: The Federal rules restrict any use of the information to criminally investigate or prosecute any alcohol or drug abuse patient.[facility] Reason for Visit (unrecogniz ed section and content) Reason Comments Care Coordination Toxicity Check Reason Comments Nutrition Counseling Reason Comments Care Coordination Follow Up Note Reason Comments Social Work Services Reason Comments Chemotherapy Treatment Specialty Diagnoses / Procedures Referred By Sea t Referred To Contact Diagnoses Squamous cell carcinoma lung, left (HCC) Procedures [place] [address] [place] [address] [facility] [address] [place] [address] Referral ID Status Reason Start Date Expiration Date V isits Requested Visits Authorized [id number] Authorized 11/02/2023 02/15/2024 5 5 Reason Comments Established Patient Reason Comments Patient Question Reason Comments Nutrition Telephone No Show Reason Comments Spirometry Specialty Diagnoses / Procedures Referred By Contac t Referred To Contact [facility] Diagnoses Centrilobular emphysema (HCC) Procedures OXIMETRY WITH AMBULATION NONINVASIVE EAR/PULSE OXIMETRY Yoanna Ingram MD [address] [address] [facility] [place] [address] [place] [address] Referral ID Status Reason Start Date Expiration Date V isits Requested Visits Authorized [id number] Closed Auto-Generate d Referral 12/14/2023 01/12/2025 1 1 Reason Comments New Patient SCC of lung Reason Comments [id number] Initial Consult Care Teams (unrecognized sec tion and content) Inspector And Sorter Relationship Specialty Start Date End Date Santi Lopez MD [address] [place], [place] [address] PCP - General Family Medicine 10/31/23 Loc Dobson MD [address] [place], [place] [id number] Hematology/Oncology 10/29/23 Aimee Lee, ELISABETH [address] [place], [place] [address] Specialty Overnight Stocker Hematology/Oncology 10/29/23 Inspector And Sorter Relationship Specialty Start Date End Date Santi Lopez MD [address] [place] [address] PCP - General Family Medicine 10/31/23 Loc Dobson MD [address] [place] [address] Hematology/Oncology 10/29/23 Aimee Lee, RN [address] [place] [address] Specialty Overnight Stocker Hematology/Oncology 10/29/23 Inspector And Sorter Relationship Specialty Start Date End Date Santi Lopez MD [address] [place] [address] PCP - General Family Medicine 10/31/23 Loc Dobson MD [address] [place] [address] Hematology/Oncology 10/29/23 Aimee Lee, ELISABETH [address] [place] [address] Specialty Overnight Stocker Hematology/Oncology 10/29/23 Inspector And Sorter Relationship Specialty Start Date End Date Santi Lopez MD [address] [place] [address] PCP - General Family Medicine 10/31/23 Loc Dobson MD [address] [place] [address] Hematology/Oncology 10/29/23 Aimee Lee, ELISABETH [address] [place] [address] Specialty Overnight Stocker Hematology/Oncology 10/29/23 Inspector And Sorter Relationship Specialty Start Date End Date Santi Lopez MD [address] [place] [address] PCP - General Family Medicine 10/31/23 Loc Dobson MD [address] [place] [address] Hematology/Oncology 10/29/23 Aimee Lee, RN [address] [place] [address] Specialty Overnight Stocker Hematology/Oncology 10/29/23 Inspector And Sorter Relationship Specialty Start Date End Date Santi Lopez MD [address] [place] [address] PCP - General Family Medicine 10/31/23 Loc Dobson MD [address] [place] [address] Hematology/Oncology 10/29/23 Aimee Lee, ELISABETH [address] [place] [address] Specialty Overnight Stocker Hematology/Oncology 10/29/23 Inspector And Sorter Relationship Specialty Start Date End Date Santi Lopez MD [address] [place] [address] PCP - General Family Medicine 10/31/23 Loc Dobson MD [address] [place] [address] Hematology/Oncology 10/29/23 Aimee Lee, RN [address] [place] [address] Specialty Overnight Stocker Hematology/Oncology 10/29/23 Inspector And Sorter Relationship Specialty Start Date End Date Santi Lopez MD [address] [place] [address] PCP - General Family Medicine 10/31/23 Loc Dobson MD [address] [place] [address] Hematology/Oncology 10/29/23 Aimee Lee RN [address] [place] [address] Specialty Overnight Stocker Hematology/Oncology 10/29/23 Inspector And Sorter Relationship Specialty Start Date End Date Santi Lopez MD [address] [place] [address] PCP - General Family Medicine 10/31/23 Loc Dobson MD [address] [place] [address] Hematology/Oncology 10/29/23 Aimee Lee, ELISABETH [address] [place] [address] Specialty Overnight Stocker Hematology/Oncology 10/29/23 Inspector And Sorter Relationship Specialty Start Date End Date Santi Lopez MD [address] [place] [address] PCP - General Family Medicine 10/31/23 Loc Dobson MD [address] [place] [address] Hematology/Oncology 10/29/23 Aimee Lee RN [address] [place] [address] Specialty Overnight Stocker Hematology/Oncology 10/29/23 Inspector And Sorter Relationship Specialty Start Date End Date Santi Lopez MD [address] [place] [address] PCP - General Family Medicine 10/31/23 Loc Dobson MD [address] [place] [address] Hematology/Oncology 10/29/23 Aimee Lee RN [address] [place] [address] Specialty Overnight Stocker Hematology/Oncology 10/29/23 Inactive Administered Medications - up to 3 most recent administrations Administered Medications (un recognized section and content) FOR RECORDS PERTAINING TO PATIENTS WHO ARE [...] BE BASED ON THE PRIMARY CLINICAL RECORDS. [employer] provides no warranty or guarantee of the accuracy or completeness of information in this document.
[2023-12-17 01:34] LABS: Absolute Lymphocyte Count 1.74 X10^3/uL (0.83-4.51); Basophil# 0.07 X10^3/uL; Basophil% 0.6 % (0-1); Eosinophil# 0.09 X10^3/uL; Eosinophils% 0.8 % (0-5); Hematocrit 29.5 % (40-54); Hemoglobin 9.1 g/dL (13.0-16.5); Lymphocyte # 1.74 X10^3/ul (0.83-4.51); Lymphocyte % 16.1 % (19-41); Mean Corp Hgb Conc 30.8 g/dL (32-36); Mean Corpuscular Hgb 25.9 pg (27.0-32.0); Mean Platelet Vol. 8.8 fl (6.2-12.0); Monocyte# 0.87 X10^3/uL; Monocyte% 8.1 % (0-10); NRBC Flagged by Analyzer 0 % (0-5); Neutrophil # 7.96 X10^3/uL (2.7-7.7); Neutrophil % 73.8 % (47-70); Platelet Count 329 K/mm3 (150-450); RBC Distribution Width CV 15.4 % (11.6-14.6); RBC Distribution Width SD 46.8 fl (35.1-43.9); Red Blood Count 3.51 M/mm3 (4.6-6.2); White Blood Count 10.8 K/mm3 (4.4-11.0)
[2023-12-17 01:53] LABS: International Normalized Ratio 1.1; Prothrombin Time (Protime)PT. 14.3 SECONDS (11.7-14.9)
[2023-12-17 01:56] LABS: ALB/GLOB Ratio 0.7 RATIO (0.9-2.4); AST(SGOT) 17 U/L (15-37); Alanine Aminotransfer ALT/SGPT 19 U/L (16-61); Albumin, Serum 2.7 g/dL (3.2-5.0); Alkaline Phosphatase 164 U/L (45-117); Anion Gap 6 (5-15); BUN 26 mg/dL (7-18); BUN/Creat Ratio 21.1 RATIO (10-20); Calcium,Total 9.1 mg/dL (8.5-10.1); Chloride 103 mmol/L (98-107); Creatinine, Serum 1.23 mg/dL (0.70-1.30); EST Glomerular Filtration Rate 61 mL/min (>60); Est Glom Filt Rate - Afr Amer 74 mL/min (>60); Estimated Creatinine Clearance 53.03 ml/min; Globulin 3.9 g/dL (2.2-4.2); Glucose 145 mg/dL (74-106); Potassium 3.9 mmol/L (3.5-5.1); Protein, Total 6.6 g/dL (6.4-8.2); Sodium Level 137 mmol/L (136-145); Troponin-I HS (w/2H Reflex) 19 pg/mL (3.0-78.0)
[2023-12-17 02:00] LABS: Lactic Acid 1.6 mmol/L (0.4-1.9)
[2023-12-17 03:12] LABS: Bacteria 0 SEEN /hpf (None Seen); Mucous, Urine 0 SEEN /hpf (<or=2+); Squamous Epithelial Cells - UA 0 SEEN /hpf (0-5)
[2023-12-17 03:13] LABS: Color, Urine Yellow (Yellow); Glucose, Dipstick Normal (Normal); Ketone-Dipstick Negative (Negative); Leukocyte Esterase-Dipstick 25 /ul (Negative); Nitrite-Dipstick Negative (Negative); Occult Blood-Urine 250 /ul (Negative); Protein-Dipstick 100 mg/dl (Negative); Urine Bilirubin Dipstick Negative (Negative); Urine Clarity Clear (Clear); Urine Urobilinogen Normal (Normal)
[2023-12-17 03:21] LABS: Red Blood Cells-Urine 50-100 SEEN /hpf (0-5); White Blood Cells 0-5 SEEN /hpf (0-5)
[2023-12-17 03:31] LABS: Reflex Troponin-HS? (from REC) Y
[2023-12-17] MEDS: dilTIAZem 25 MG/5 ML Vial IV BOLUS (04:33)
[2023-12-17] MEDS: Diltiazem 125 MG in Dextrose 5%-Water (100mL Bag) 100 ML CONT INF (05:15)
[2023-12-17 06:47] LABS: Troponin-I HS 30 pg/mL (3.0-78.0)
[2023-12-17] MEDS: Metoprolol Tartrate 5 MG/5 ML Vial IV (06:55)
--- NOTE | 2023-12-17 07:52 | ED.RN ---
bp low. readjusted cuff and monitored while cycling again. remains low. dr solis aware and new orders for another liter received and initated.
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
--- NOTE | 2023-12-17 08:15 | CT_ITS ---
INDICATION: evaluate lung mass EXAMINATION: CT CHEST WITHOUT CONTRAST TECHNIQUE: Helically acquired images were obtained of the chest. A radiation dose optimization technique was used for this scan. IV Contrast dosage and agent: None. RADIATION DOSAGE (If Supplied By Facility): CTDIvol = ( 8.775 ) mGy, DLP = ( 359.87 ) mGycm COMPARISON: No relevant prior comparison study available FINDINGS: LUNGS, PLEURA AND LARGE AIRWAYS: Large cavitary lesion in the anterior segment left upper lobe associated with partial collapse of the left upper lobe extending to the left hilar region measuring 12 x 9 x 10 cm the left upper lobe bronchus is occluded. Multiple nodules are seen predominantly in the right lung, the largest measures about 1.7 cm. Small left pleural effusion with compressive atelectatic changes in the left lower lobe. THYROID: No thyroid lesions. HEART AND PERICARDIUM: Heart size is normal. No pericardial effusion. CORONARY ARTERIES: Coronary artery calcification is seen. VESSELS: Atherosclerotic calcifications of the thoracic aorta without evidence of aneurysm. MEDIASTINUM AND RIAZ: Few mediastinal nodes, the largest measures about 1.9 cm. Esophagus is unremarkable. No hiatal hernia. UPPER ABDOMEN: Reported separately. BONES: No suspicious lytic or blastic abnormality. Degenerative changes of the spine. CT/Chest without Contrast IMPRESSION: 1. Large cavitating mass in the anterior segment of the left upper lobe extending to the left hilum with occlusion of the left upper lobe bronchus concerning for malignancy. 2. Multiple pulmonary nodules predominantly in the right lung concerning for metastases. 3. Mediastinal adenopathy. 4. Small left pleural effusion. Electronically Signed: Reji Rizo MD at 9:16 EST ,
--- NOTE | 2023-12-17 08:15 | EKG12_ITS ---
Test Reason : REPEAT Blood Pressure : / mmHG Vent. Rate : 049 BPM Atrial Rate : 000 BPM P-R Int : 000 ms QRS Dur : 100 ms QT Int : 430 ms P-R-T Axes : 000 037 068 degrees QTc Int : 388 ms Sinus bradycardia Low voltage QRS Abnormal ECG Confirmed by Bhavik Paul ([id number]), supervising editor trailer SONJA GARNER ([id number]) on 12/19/2023 9:27:25 AM Referred By: Confirmed By:Bhavik Paul
--- NOTE | 2023-12-17 09:06 | ECHOD_ITS ---
Version 2 Reason For Study: A. fib Procedure This was a 2D Doppler, Color Flow transthoracic echocardiogram. Exam performed portable in patient room. Left Ventricle Normal LV size. The left ventricular ejection fraction is 60 %. Stage 1 diastolic dysfunction. Right Ventricle Normal right ventricle. Atria The left atrium is mildly enlarged. Normal right atrium. Mitral Valve Mild (1+) mitral valve insufficiency. Tricuspid Valve Mild tricuspid valve insufficiency. Right ventricular systolic pressure estimated to be 39 mmHg. Aortic Valve Trisinus/trileaflet aortic valve. Mild focal aortic valve thickening. Pulmonic Valve Mild (1+) pulmonic valve insufficiency. Great Vessels Normal sized aortic root. Pericardium/Pleural No pericardial effusion. MMode/2D Measurements & Calculations LVIDd: 5.0 cm IVSd: 1.2 cm Ao root diam: 3.5 cm LVIDs: 3.1 cm LVPWd: 1.0 cm RVDd: 3.8 cm FS: 37.8 % LAV(MOD-bp): 67.2 ml LVAd ap4: 27.1 cm2 LVAd ap2: 26.6 cm2 LAV(MOD-bp) Indexed: 36.0 ml/m2 LVLd ap4: 7.6 cm LVLd ap2: 7.8 cm LAV(MOD-sp2): 68.6 ml EDV(MOD-sp4): 80.2 ml EDV(MOD-sp2): 80.3 ml LAV(MOD-sp4): 66.9 ml EDV(sp4-el): 82.3 ml EDV(sp2-el): 77.3 ml LVAs ap4: 16.8 cm2 LVAs ap2: 16.9 cm2 LVLs ap4: 6.6 cm LVLs ap2: 7.2 cm ESV(MOD-sp4): 36.1 ml ESV(MOD-sp2): 34.8 ml ESV(sp4-el): 35.9 ml ESV(sp2-el): 33.5 ml EF(MOD-sp4): 55.0 % EF(MOD-sp2): 56.6 % EF(sp4-el): 56.4 % SV(MOD-sp4): 44.1 ml SV(MOD-sp2): 45.5 ml SV(sp4-el): 46.4 ml LA dimension(2D): 4.0 cm LA A4 area: 21.9 cm2 RA A4 area: 18.4 cm2 Time Measurements MV dec time: 0.18 sec Doppler Measurements & Calculations MV E max zeke: 100.1 cm/sec Lat Peak E' Zeke: 10.7 cm/sec Med Peak E' Zeke: 8.5 cm/sec MV A max zeke: 48.3 cm/sec E/E' lat: 9.3 E/E' med: 11.8 MV E/A: 2.1 MV dec slope: 557.4 cm/sec2 Ao V2 max: 109.2 cm/sec LV V1 max: 89.6 cm/sec Ao max P.8 mmHg LV V1 max P.2 mmHg Ao V2 mean: 66.9 cm/sec LV V1 mean P.6 mmHg Ao mean P.1 mmHg LV V1 mean: 57.4 cm/sec Ao V2 VTI: 24.5 cm LV V1 VTI: 20.3 cm AV (velocity ratio): 0.83 PA V2 max: 71.9 cm/sec TR max zeke: 260.0 cm/sec TR max P.0 mmHg ECHO/Echo Complete Interpretation Summary The left ventricular ejection fraction is 60 %. Stage 1 diastolic dysfunction. Mild (1+) mitral valve insufficiency. Mild tricuspid valve insufficiency. Right ventricular systolic pressure estimated to be 39 mmHg. Mild focal aortic valve thickening. Mild (1+) pulmonic valve insufficiency. The left atrium is mildly enlarged. Ordering Physician: Aries Scanlon Referring Physician: Belgica French Performed By: Yola Cunningham RDCS
[2023-12-17] MEDS: 0.9% Normal Saline (1000mL) 1,000 ML 999 ML IV (10:51)
[2023-12-17] MEDS: Pantoprazole Sodium 40 MG Tablet PO (11:02)
[2023-12-17 11:50] LABS: Hematocrit 26.3 % (40-54); Mean Corp Hgb Conc 30.4 g/dL (32-36); Mean Corpuscular Hgb 25.6 pg (27.0-32.0); Mean Corpuscular Volume 84.3 fL (80-94); Mean Platelet Vol. 8.7 fl (6.2-12.0); Platelet Count 281 K/mm3 (150-450); RBC Distribution Width CV 15.5 % (11.6-14.6); RBC Distribution Width SD 46.9 fl (35.1-43.9); Red Blood Count 3.12 M/mm3 (4.6-6.2); White Blood Count 8.9 K/mm3 (4.4-11.0)
[2023-12-17] MEDS: 0.9% Normal Saline (1000mL) 1,000 ML 15 ML IV (12:01)
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
[2023-12-17 17:17] LABS: Bedside Glucose 134 mg/dL (74-106)
[2023-12-18 03:00] VITALS: BP 140/71; PULSE 79; RESP 20; TEMP 36.8; O2SAT 94
[2023-12-18 07:23] LABS: Hematocrit 28.5 % (40-54); Hemoglobin 8.9 g/dL (13.0-16.5); Mean Corp Hgb Conc 31.2 g/dL (32-36); Mean Corpuscular Hgb 26.1 pg (27.0-32.0); Mean Corpuscular Volume 83.6 fL (80-94); Mean Platelet Vol. 8.6 fl (6.2-12.0); Platelet Count 301 K/mm3 (150-450); RBC Distribution Width CV 15.5 % (11.6-14.6); Red Blood Count 3.41 M/mm3 (4.6-6.2); White Blood Count 9.4 K/mm3 (4.4-11.0)
--- NOTE | 2023-12-18 07:26 | PN.CARD_ITS ---
Subjective Subjective The patient denies any recurrence of his near syncope or syncopal spells. He has been resting comfortably he does complain of the Torres catheter. His telemetry shows a normal sinus rhythm with occasional PVCs he had 1 3 beats run of PVCs. The patient's had no recurrence of the atrial fibrillation. Has had no significant pauses. He has not been out of the bed to the bathroom are up ambulatory. Objective Data Vital Signs: Vital Signs Temp Pulse Resp BP Pulse Ox O2 Del Method O2 Flow Rate 98.3 F 79 20 H 140/71 H 94 Room Air 2 12/18/23 03:00 12/18/23 03:00 12/18/23 03:00 12/18/23 03:00 12/18/23 03:00 12/18/23 03:00 12/17/23 06:00 Oxygen Flow Rate (L/min) 2 Oxygen Delivery Method Room Air Weight: 155 lb 11.47 oz Body Mass Index (BMI) 22.3 Intake & Output: Intake and Output for Last 24 Hours 12/16/23 12/17/23 12/18/23 23:59 23:59 23:59 Intake Total 3985.58 / 4285.58 500 / 500 Output Total 1950 / 2350 800 / 800 Balance 2035.58 / 1935.58 -300 / -300 Lab / Micro Data Attestation: I reviewed the patient's lab results. 12/18/23 06:40 12/17/23 01:05 Labs: Laboratory Results - last 24 hr 12/17/23 11:40: WBC 8.9, RBC 3.12 L, Hgb 8.0 L, Hct 26.3 L, MCV 84.3, MCH 25.6 L , MCHC 30.4 L, RDW Std Deviation 46.9 H, RDW Coeff of Joe 15.5 H, Plt Count 281, MPV 8.7 12/17/23 16:33: POC Glucose 134 H 12/18/23 06:40: WBC 9.4, RBC 3.41 L, Hgb 8.9 L, Hct 28.5 L, MCV 83.6, MCH 26.1 L , MCHC 31.2 L, RDW Std Deviation 47.0 H, RDW Coeff of Joe 15.5 H, Plt Count 301, MPV 8.6 Rhythm Strip Rhythm Strip: Sinus Rhythm Rate: 80 Ectopy: PVC(s) Cardiology Labs/Tests 12/17/23 11:40: WBC 8.9, RBC 3.12 L, Hgb 8.0 L, Hct 26.3 L, MCV 84.3, MCH 25.6 L , MCHC 30.4 L, Plt Count 281, MPV 8.7 12/18/23 06:40: WBC 9.4, RBC 3.41 L, Hgb 8.9 L, Hct 28.5 L, MCV 83.6, MCH 26.1 L , MCHC 31.2 L, Plt Count 301, MPV 8.6 Rhythm: EKG: ECHO: Stress Test: Cardiac Cath: PCI: CT Surgery: Holter monitor: EPS: PPM: CXR: Chest CT Scan: Radiography Diagnostic Testing: Radiology Impression Chest CT 12/17/23 08:15 IMPRESSION: 1. Large cavitating mass in the anterior segment of the left upper lobe extending to the left hilum with occlusion of the left upper lobe bronchus concerning for malignancy. 2. Multiple pulmonary nodules predominantly in the right lung concerning for metastases. 3. Mediastinal adenopathy. 4. Small left pleural effusion. Electronically Signed: Reji Rizo MD at 9:16 EST , Echocardiogram 12/17/23 09:06 Interpretation Summary The left ventricular ejection fraction is 60 %. Stage 1 diastolic dysfunction. Mild (1+) mitral valve insufficiency. Mild tricuspid valve insufficiency. Right ventricular systolic pressure estimated to be 39 mmHg. Mild focal aortic valve thickening. Mild (1+) pulmonic valve insufficiency. The left atrium is mildly enlarged. Ordering Physician: Aries Scanlon Referring Physician: Belgica French Performed By: Yola Cunningham RDCS Physical Exam Const oriented x3 HEENT normocephalic Eyes EOMs intact bilaterally Neck no JVD Chest inspection of chest normal Resp normal respiratory effort Auscultation: crackles bilateral lower Cardio regular rate, regular rhythm, S1 normal heart sound, S2 normal heart sound, no rub and no gallops Heart Sounds: murmur systolic II/ soft right sternal border GI normal to inspection, nondistended, normoactive bowel sounds Extremity no pedal edema Skin no rashes or lesions noted Neuro Neuro Narrative: Alert and oriented x 3 Psych mental status grossly normal Assessment & Plan Assessment/Plan (1) Atrial fibrillation, new onset: PLAN: The patient's atrial fibrillation has not recurred. Telemetry shows normal sinus rhythm with occasional PVCs and one 3 beat run of PVCs. He denies any symptoms. Of note when he converted from paroxysmal atrial fibrillation to sinus rhythm yesterday he had an experience similar to his syncopal spell at home. This conversion resulted in a prolonged sinus node recovery time. It raises the possibility that he may be having paroxysmal atrial fibs in the home environment and spontaneously converting. I do not feel that he is a good can didate for oral anticoagulation given his current hematuria and known squamous cell carcinoma of the kidney. At this point in time from an atrial fibs standpoint there is not an indication for oral anticoagulation but should that arise in the future he would need to have the opinion of the tilt wall supervisor. (2) Syncope: QUALIFIERS: Syncope type: unspecified Qualified Code(s): R55 - Syncope and collapse PLAN: I am uncertain of the etiology of his syncope however his suggestions when he converted yesterday from atrial fibs to sinus rhythm is that he may have prolonged sinus node recovery times. When appropriate we should get him up and ambulatory to try and recreate the situation which was precipitated his near syncope in his home environment. He has had this on more than 1 occasion. If we do not precipitate the event where we can identify his cardiac rhythm he should be discharged with a 30-day event monitor. I went over this with the patient and his family member. PLAN: Plan 1. Progress activity as tolerated and monitor the rhythm. 2. If we do not capture the rhythm when he has a near syncopal or syncopal spell in the hospital he should be discharged with a 30-day event recorder. 3. The patient should follow-up in the [facility] office 2 to 3 weeks after discharge. Charges/Coding Visit Charges Inpatient E&M: 68959 Subs Hosp L2
[2023-12-18 08:12] LABS: Anion Gap 4 (5-15); BUN 22 mg/dL (7-18); BUN/Creat Ratio 21.4 RATIO (10-20); Calcium,Total 8.7 mg/dL (8.5-10.1); Chloride 108 mmol/L (98-107); Creatinine, Serum 1.03 mg/dL (0.70-1.30); EST Glomerular Filtration Rate 75 mL/min (>60); Est Glom Filt Rate - Afr Amer 91 mL/min (>60); Estimated Creatinine Clearance 63.81 ml/min; Glucose 97 mg/dL (74-106); Potassium 3.7 mmol/L (3.5-5.1); Sodium Level 138 mmol/L (136-145)
[2023-12-18 09:15] VITALS: BP 134/52; PULSE 84; RESP 18; TEMP 36.6; O2SAT 96
[2023-12-18] MEDS: Pantoprazole Sodium 40 MG Tablet PO (09:28)
[2023-12-18 09:50] LABS: Vitamin B12 216 pg/mL (211-911)
--- NOTE | 2023-12-18 10:13 | PN.HOSP_ITS ---
Reason for Visit Reason for Visit: Diagnoses Malignant neoplasm of unspecified part of left bronchus or lung (12/17/23) Malignant neoplasm of right kidney, except renal pelvis (12/17/23) Unspecified atrial fibrillation (12/17/23) Hematuria, unspecified (12/17/23) Syncope and collapse (12/17/23) Objective Data Objective Data Vital Signs: Vital Signs Temp Pulse Resp BP Pulse Ox O2 Del Method O2 Flow Rate 98 F 84 18 134/52 H 96 Room Air 2 12/18/23 09:15 12/18/23 09:15 12/18/23 09:15 12/18/23 09:15 12/18/23 09:15 12/18/23 09:15 12/17/23 06:00 Oxygen Flow Rate (L/min) 2 Oxygen Delivery Method Room Air Weight: 70.632 kg Body Mass Index (BMI) 22.3 Intake & Output: Intake and Output for Last 24 Hours 12/16/23 12/17/23 12/18/23 23:59 23:59 23:59 Intake Total 3985.58 / 4285.58 500 / 500 Output Total 1950 / 2350 800 / 800 Balance 2035.58 / 1935.58 -300 / -300 Medical Nutrition Assessment Dietitian: Malnutrition Criteria Met Start: 12/17/23 16:19 Freq: Status: Active Protocol: Document 12/17/23 16:19 RMA (Rec: 12/17/23 16:19 RMA [id number]) Nutrition Malnutrition Evidence of Malnutrition Exists Yes Malnutrition (severe): Chronic Evidenced By Suboptimal Energy Intake ( Severe),Weight Loss (Severe) Clinical Problem Chronic Disease or Condition Related Malnutrition Etiology Severe protein-calorie malnutrition in the context of chronic disease related to increased energy expenditure and inadequate energy intake Signs/Symptoms as evidenced by ~20-22% unintentional weight loss x 6- 8 months, BMI 22.3, PO meeting less than 50% estimated nutrition needs x 6 months Status Active Problem Recommendation Dietitian Recommendations/Changes Continue liberalized regular diet. Will add magic cup BID w/ lunch and dinner meals. Will add 240mL ensure plus HP 3 times per day w/ meals, prefers vanilla or strawberry flavor. Pt will continue high protein chocolate milk from home 1-2 times per day. Lab / Micro Data 12/18/23 06:40 12/18/23 06:40 Labs: Laboratory Results - last 24 hr 12/17/23 11:40: WBC 8.9, RBC 3.12 L, Hgb 8.0 L, Hct 26.3 L, MCV 84.3, MCH 25.6 L , MCHC 30.4 L, RDW Std Deviation 46.9 H, RDW Coeff of Joe 15.5 H, Plt Count 281, MPV 8.7 12/17/23 16:33: POC Glucose 134 H 12/18/23 06:40: WBC 9.4, RBC 3.41 L, Hgb 8.9 L, Hct 28.5 L, MCV 83.6, MCH 26.1 L , MCHC 31.2 L, RDW Std Deviation 47.0 H, RDW Coeff of Joe 15.5 H, Plt Count 301, MPV 8.6, Sodium 138, Potassium 3.7, Chloride 108 H, Carbon Dioxide 26.0, Anion Gap 4 L, BUN 22 H, Creatinine 1.03, Estim Creat Clear Calc 63.81, Est GFR (MDRD) Af Amer 91, Est GFR (MDRD) Non-Af 75, BUN/Creatinine Ratio 21.4 H, Glucose 97, Calcium 8.7, Vitamin B12 216 Radiography Diagnostic Testing: Radiology Impression Echocardiogram 12/17/23 09:06 Interpretation Summary The left ventricular ejection fraction is 60 %. Stage 1 diastolic dysfunction. Mild (1+) mitral valve insufficiency. Mild tricuspid valve insufficiency. Right ventricular systolic pressure estimated to be 39 mmHg. Mild focal aortic valve thickening. Mild (1+) pulmonic valve insufficiency. The left atrium is mildly enlarged. Ordering Physician: Aries Scanlon Referring Physician: Belgica French Performed By: Yola Cunningham RDCS Rhythm Strip Rhythm Strip: Sinus Rhythm Rate: 80 Ectopy: PVC(s)
--- NOTE | 2023-12-18 10:25 | CASEMGMT ---
RN CM Face to Face with patient for initial transition planning/care coordination assessment. RN CM introduced self and role at [facility]. Patient lying in bed, alert and oriented, daughter at bedside. Patient willing to participate in assessment and is able to answer all questions appropriately. Care providers, pharmacy, and demographics verified. PCP: Gillian Specialists: Freddy, oncologist; Preferred Pharmacy: [facility] Insurance: [employer] [facility] Prescription Benefit: yes Living Will/HPOA: yes, Cici Hernandez LNOK: , daughter Living Arrangements: Patient lives with in a 2 story home with bed and bath on first floor, no steps to enter. Patient is independent at home. Transportation: daughter DME/HHC: Patient has grab bars and walker at home. No previous HHC or SNF Patient wishes to discharge home, denies need for home health at this time. Patient states he has no further needs or concerns at this time. CM to follow for discharge planning needs that may arise. Disposition Plan: Patient to discharge home with family support and follow-up plans in place. Bibiana OWUSU, RN, CM
[2023-12-18 10:42] VITALS: BP 124/58; BP 128/67; BP 130/75; PULSE 78; PULSE 83; PULSE 85
[2023-12-18 11:31] LABS: Ferritin 432 ng/mL (26-388); Iron 21 ug/dL (65-175); Iron Binding Capacity,Total 175 ug/dL (250-450)
--- NOTE | 2023-12-18 14:01 | PCM.DC ---
Discharge Instructions Diet Discharge Diet: No restrictions Activity Discharge Activity: No Restrictions Weight Bearing Status: Full weight bearing Follow Up Care Test Results: Test results from this visit will be discussed in further detail at your follow-up appointment, if applicable. Discharge Plan Admission Admit Date/Time: 12/17/23 09:00 Primary Reason for Your Visit: Syncopal episodes Attending Provider: Aries Scanlon Primary Care Provider: Belgica French Consulting Providers: Bhavik Paul; Manohar Sin; Loc Dobson; Isabel Sow; Navi Madden; Naresh Dumont; Pritesh Jones; Link Dia Instructions Additional Instructions / Restrictions: The 30-day heart monitor will be sent to you through the mail soon, please use as instructed. We have added no new medications to your regimen. Please follow-up with your oncologist as scheduled to discuss ongoing therapy. Discharge Orders/Prescriptions Prescriptions: Continued pantoprazole [Protonix] 40 mg tablet,delayed release (DR/EC) 40 mg PO DAILY pembrolizumab [Keytruda] IV Other Ambulatory Orders: 30 Day Event Recorder Preventi (Urgent) Timeframe: 1 Month Facility: [facility] - Location: Cardiovascular Services Ordered By: Dr. Aries Scanlon Referrals / Follow Up: Belgica French MD [Primary Care Provider] - Disposition Disposition (needs filled in before D/C Order can be placed): Home, Self Care
--- NOTE | 2023-12-18 14:06 | PCM.DC.SUM ---
Providers Date of Admission: 12/17/23 Date of Discharge: 12/18/23 Primary Care Physician: Dr. Belgica French MD Consultations 12/17/23 09:03 Consult: Cardiology Routine Consulting Provider: Bhavik Paul Reason for Consult: new onset afib with rvr EMERGENT Consult: No Notified: Yes Date Notified: 12/17/23 Time Notified: 09:37 Method of Notification: Text Consult: Oncology/Hematology Routine Consulting Provider: [facility] [place] Reason for Consult: NSCLC w/ renal mets, w/ active ongoing hematuria EMERGENT Consult: No Notified: Yes Date Notified: 12/17/23 Time Notified: 10:38 Method of Notification: Answering Service Reason For Visit: SYNCOPE, AFIB WITH RVR, ACUTE ON CHRONIC ANEMIA Diagnosis Discharge Diagnosis (1) Atrial fibrillation, new onset: Status: Acute Code(s): I48.91 - Unspecified atrial fibrillation (2) Syncope: Status: Acute Code(s): R55 - Syncope and collapse Qualifiers: Syncope type: unspecified Qualified Code(s): R55 - Syncope and collapse Medications at Discharge Home Medications pantoprazole 40 mg tablet,delayed release (Protonix) 40 mg PO DAILY reflux 12/17/23 pembrolizumab IV skin 12/17/23 Hospital Course Operations None Procedures Transthoracic echo and - (CT abdomen pelvis with IV contrast, chest x-ray, CT chest without contrast) Summary of Care Provided Minutes Spent on Discharge: 35 Hospital Course: Patient is a 73-year-old male who presented to [facility] ED on 12/17/2023 after multiple syncopal episodes at home. Short hospital course as noted below. Patient discharged home without any therapy needs in stable condition on 12/17. 1. Syncopal episodes ? Cardiology followed. Unclear etiology of syncopal episodes at this time. Could have a degree of orthostatic hypotension in setting of decreased p.o. intake and ongoing blood loss with hematuria as noted below. Patient notably did have presyncopal symptoms with conversion from A-fib with RVR to normal sinus rhythm with long sinus pause as noted below, is possible that this could be contributing to his symptoms. ? Mild hypotension noted in the ED, improved with IV fluid resuscitation. ? Echo 12/16 showed EF 60%, stage I diastolic function, mild enlarged LA, mildly elevated right ventricular systolic pressure, no significant valve dysfunction. ? Monitored telemetry for entirety of hospitalization, remained in normal sinus rhythm. ? Orthostatic vitals on 12/17 were normal. ? Per cardiology recs, ordered 30-day event monitor for patient on discharge. 2. New onset A-fib with RVR, sinus pause with conversion back to normal sinus rhythm and subsequent sinus bradycardia ? Presented with new onset A-fib with RVR with heart rate in the 130s to 140s. Given IV Lopressor and Cardizem in the ED and converted back to sinus rhythm with a long sinus pause, and subsequently had sinus bradycardia with heart rate in the high 40s to low 50s. BP mildly low but improved with volume resuscitation. ? Cardiology followed as above. 30-day heart monitor ordered on discharge. Recommended avoiding any rate modulating drugs. Also noted that patient is not an ideal candidate for oral anticoagulation at this time given his ongoing hematuria, but will ultimately defer to Oncology in outpatient setting. 3. Hematuria, acute on chronic microcytic anemia ? Patient noted to have slowly downtrending hemoglobin since his cancer diagnosis. Reviewed labs from [facility] on [facility], patient hemoglobin was between 10-11 a few weeks prior to this admission and prior to that was 11-12. ? Hemoglobin 9.1 on admit, decreased to 8.0 after IV fluid resuscitation but repeat hemoglobin on day of discharge was 8.9. ? Iron studies were consistent with anemia of chronic disease. B12 and folate normal. ? CT abdomen pelvis on admit showed known right renal metastatic lesion with no significant change from previous. ? Discussed with Dr. Dia with Oncology over the phone. Have very high concern that ongoing hematuria is secondary to right renal lesion. However, he had short discussion with radiation oncology and radiation to that area would be difficult as it would likely compromise the entire kidney. Patient a poor surgical candidate and patient and family do not want any intervention if possible. Dr. Dia noted that it can take around 2 months for Keytruda to have full effect; recommended that patient and family continue to monitor at hematuria going forward, and he can repeat CBCs in the office as needed. 4. 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 Follows with outpatient oncology and pulmonology. Has completed 2/3 rounds of Keytruda therapy, with plan to discuss next labs with oncology after completing 3 rounds. ? CT chest/abdomen/pelvis imaging on admit showed known large lung lesion with mets to right kidney. ? No inpatient oncology needs, continue outpatient follow-up. 5. Malnutrition ? Nutrition evaluated. Patient met criteria for severe protein calorie malnutrition in the context of chronic disease related to increased energy expenditure and inadequate energy intake, as evidenced by ~20-22% unintentional weight loss in 6 to 8 months, BMI 22.3, p.o. eating less than 50% estimated nutritional needs for 6 months. ? Recommended liberalized regular diet, added Magic cup twice daily with lunch and dinner meals, added 240mL Ensure Plus HP 3 times daily with meals. 6. Mild debility ? In setting of metastatic cancer and syncopal episodes as noted above. PT/OT/case management followed, okay for discharge home with no therapy needs. Chronic medical conditions: ? GERD: Continue home PPI. Total clinical time spent by myself addressing the patient's discharge needs: 35 minutes. Physical Exam Const alert, oriented x3, no apparent distress, average body habitus, healthy appearing and well nourished Constitutional Narrative: Pleasant elderly male, thin and chronically ill-appearing, otherwise sitting up comfortably in bed, conversing normally, no acute distress. General Appearance: cooperative and comfortable HEENT normocephalic, head/scalp atraumatic, hearing grossly normal bilaterally and nasal mucous membranes and turbinates normal Eyes PERRL, EOMs intact bilaterally and conjunctivae normal Chest inspection of chest normal Resp normal respiratory effort, normal air movement, no use of accessory muscles and clear to auscultation bilaterally Cardio regular rate, regular rhythm, no murmurs and peripheral pulses 2+ throughout GI normal to inspection, nondistended, normoactive bowel sounds, soft to palpation, non-tender and non-distended Back/Spine normal ROM Extremity normal to inspection, full ROM and no pedal edema Skin no rashes or lesions noted Neuro moves all extremities and no focal motor deficits Speech: speech normal Psych mental status grossly normal Medical Records Data Medical Nutrition Assessment Dietitian: Malnutrition Criteria Met Start: 12/17/23 16:19 Freq: Status: Active Protocol: Document 12/17/23 16:19 RMA (Rec: 12/17/23 16:19 RMA [id number]) Nutrition Malnutrition Evidence of Malnutrition Exists Yes Malnutrition (severe): Chronic Evidenced By Suboptimal Energy Intake ( Severe),Weight Loss (Severe) Clinical Problem Chronic Disease or Condition Related Malnutrition Etiology Severe protein-calorie malnutrition in the context of chronic disease related to increased energy expenditure and inadequate energy intake Signs/Symptoms as evidenced by ~20-22% unintentional weight loss x 6- 8 months, BMI 22.3, PO meeting less than 50% estimated nutrition needs x 6 months Status Active Problem Recommendation Dietitian Recommendations/Changes Continue liberalized regular diet. Will add magic cup BID w/ lunch and dinner meals. Will add 240mL ensure plus HP 3 times per day w/ meals, prefers vanilla or strawberry flavor. Pt will continue high protein chocolate milk from home 1-2 times per day. Weight / BMI Weight Weight: 70.632 kg Body Mass Index (BMI) 22.3 ABG / Lab / Microbiology Data 12/18/23 06:40 12/18/23 06:40 Laboratory: Laboratory Results - last 24 hr 12/17/23 16:33: POC Glucose 134 H 12/18/23 06:40: WBC 9.4, RBC 3.41 L, Hgb 8.9 L, Hct 28.5 L, MCV 83.6, MCH 26.1 L, MCHC 31.2 L, RDW Std Deviation 47.0 H, RDW Coeff of Joe 15.5 H, Plt Count 301, MPV 8.6, Sodium 138, Potassium 3.7, Chloride 108 H, Carbon Dioxide 26.0, Anion Gap 4 L, BUN 22 H, Creatinine 1.03, Estim Creat Clear Calc 63.81, Est GFR (MDRD) Af Amer 91, Est GFR (MDRD) Non-Af 75, BUN/Creatinine Ratio 21.4 H, Glucose 97, Calcium 8.7, Iron 21 L, TIBC 175 L, Iron Saturation 12.0 L, Ferritin 432 H, Vitamin B12 216, Folate 10.80 D/C Instructions Discharge Diet: No restrictions Weight Bearing Status: Full weight bearing Meaningful Use Info Meaningful Use Diagnoses (Choose all that apply): None applicable Discharge Plan Admission Admit Date/Time: 12/17/23 09:00 Primary Reason for Your Visit: Syncopal episodes Attending Provider: Aries Scanlon Primary Care Provider: Belgica French Consulting Providers: Bhavik Paul; Manohar Sin; Loc Dobson; Isabel Sow; Navi Madden; Naresh Dumont; Pritesh Jones; Link Dia Instructions Additional Instructions / Restrictions: The 30-day heart monitor will be sent to you through the mail soon, please use as instructed. We have added no new medications to your regimen. Please follow-up with your oncologist as scheduled to discuss ongoing therapy. Discharge Orders/Prescriptions Prescriptions: Continued pantoprazole [Protonix] 40 mg tablet,delayed release (DR/EC) 40 mg PO DAILY pembrolizumab [Keytruda] IV Other Ambulatory Orders: 30 Day Event Recorder Preventi (Urgent) Timeframe: 1 Month Facility: [facility] - Location: Cardiovascular Services Ordered By: Dr. Aries Scanlon Referrals / Follow Up: Belgica French MD [Primary Care Provider] - Disposition Disposition (needs filled in before D/C Order can be placed): Home, Self Care Charges/Coding Visit Charges Inpatient E&M: 99159 Disch Hosp >30min
[2023-12-18 14:08] VITALS: BP 143/73; PULSE 73; RESP 18; TEMP 36.6; O2SAT 95
== END 2023-12-18 15:06 | disposition home or self-care (01) | DRG 308 ==
LOC: ED 08:25 → PCU 09:22
PROVIDERS: Admitting Provider Hospitalist; Emergency Provider Emergency Medicine; PCP Internal Medicine; Visit Provider Hospitalist
DX: I48.91 Unspecified atrial fibrillation (principal); E43 Unspecified severe protein-calorie malnutrition; C79.01 Secondary malignant neoplasm of right kidney and renal pelvis; C34.92 Malignant neoplasm of unspecified part of left bronchus or lung; D63.8 Anemia in other chronic diseases classified elsewhere; D50.9 Iron deficiency anemia, unspecified; K21.9 Gastro-esophageal reflux disease without esophagitis; I25.2 Old myocardial infarction; R55 Syncope and collapse; R31.9 Hematuria, unspecified; R53.81 Other malaise; Z79.899 Other long term (current) drug therapy; Z66 Do not resuscitate; Z87.891 Personal history of nicotine dependence; Z95.5 Presence of coronary angioplasty implant and graft; Z68.22 Body mass index [BMI] 22.0-22.9, adult
CPT/HCPCS: 36415; 51702; 71046; 71250; 74177; 80048; 80053; 81001; 82607; 82728; 82746; 82962; 83540; 83550; 83605; 84484; 85025; 85027; 85610; 85730; 93005; 93306; 97165; 97802; 99285; J7030; Q9967; A4216

== ENCOUNTER 2023-12-19 06:17 | Emergency (ER) | payer MEDICARE, SELFPAY ==
[2023-12-19] VITALS (8 sets, daily range): BP systolic 111–144; BP diastolic 66–86; PULSE 73–99; RESP 16–20; TEMP 36.3–36.6; O2SAT 94–98; BMI 22.1
--- NOTE | 2023-12-19 06:26 | EX.ED.GUMALE ---
HPI History of Present Illness Chief Complaint: Complaint Informant: patient and family Narrative Narrative: Patient started having hematuria last night, passing clots and now for the past 3 or 4 hours has urinary retention, uncomfortable, not able to pass any urine. Takes no antiplatelet or anticoagulant medications. Recently diagnosed with renal mass. No urinary symptoms prior to the onset of hematuria, which was taking place when he was admitted to the hospital several days ago. After discharge, he was urinating transparent nonbloody urine until restarted last night. Recently diagnosed with atrial fibrillation but since he had hematuria, not anticoagulated. Also has lung cancer stage IV. Has not seen oncology yet as an outpatient, but indicated to providers in the hospital that he was not wanting to be aggressive with cancer treatment. PFSH PFSH Medical History CAD (coronary artery disease) Hearing problem HLD (hyperlipidemia) HTN (hypertension) Lung cancer Renal mass Home Medications pantoprazole 40 mg tablet,delayed release 40 mg PO DAILY #30 tabs 10/25/23 [Rx Last Taken Unknown] Allergy/AdvReac Type Severity Reaction Status Date / Time No Known Allergies Allergy Verified 12/19/23 06:17 Family History (Updated 10/25/23 @ 09:[address] 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 Smoking Status: Former smoker quit date: 10/08/23 pack-years: 60 Smokeless tobacco user: other Electronic Cigarette Use: not used alcohol intake: former year quit: 2022 substance use type: does not use what type of physical activity do you participate in: none do you feel safe at home: Yes ROS ROS ED Constitutional Constitutional ED: Denies chills or fever(s) Eyes Eyes: Denies change in vision or diplopia ENT ENT ED: Denies rhinorrhea or sore throat Cardiovascular Cardiovascular: Denies chest pain, orthopnea or palpitations Respiratory/Chest Respiratory/Chest: Denies dyspnea or orthopnea Gastrointestinal Gastrointestinal: Denies abdominal pain, diarrhea, nausea or vomiting Genitourinary Genitourinary ED: Reports as per HPI, difficulty urinating and hematuria; Denies dysuria Musculoskeletal Musculoskeletal: Denies back pain or neck pain Integumentary Denies abscess or rash Neurologic Neurologic: Denies headache(s), paresthesias or weakness Psychiatric Psychiatric: Denies suicidal ideation or suicidal thoughts EXAM Physical Exam Const Vital Signs: 12/19/23 06:18 12/19/23 07:17 Temperature 97.3 F L Temperature Source Temporal Pulse Rate 99 80 Respiratory Rate 18 16 Blood Pressure 124/86 H 111/83 H Blood Pressure Mean 98 92 Pulse Ox 94 98 Oxygen Delivery Method Room Air Room Air Positive well nourished and well developed General Appearance ED: well developed and NAD HEENT Reports moist mucous membranes normocephalic and atraumatic Eyes PERRL and EOMs intact bilaterally Neck full ROM and supple Resp normal respiratory effort and clear to auscultation bilaterally Cardio regular rate, regular rhythm and no murmurs GI non-tender and non-distended Auscultation: normoactive bowel sounds Palpation: soft no CVA tenderness Back/Spine no CVA tenderness General Back: other FROM Extremity normal to inspection General Extremety ED: Negative for edema, pulses abnormal or tenderness General Extremity: Negative for edema or pulses abnormal Neuro oriented x3, CN's II-XII intact bilaterally and no sensory deficits noted Sensorium / Orientation: awake and alert Motor Exam: strength 5/5 throughout Skin no rashes or lesions noted and no wounds MDM MDM MDM Narrative Medical decision making narrative: Family confirms he is not wanting to be aggressive with cancer treatment. He had a catheter in the hospital and when they took it out he had similar hematuria but then it cleared. Here we placed a catheter after pretreated him with morphine and Uro-Jet. He did not in fact have urinary retention and felt much better after his bladder was emptied by the catheter, he had about 300cc that came out, blood-tinged. RNs to irrigate and will reeval. If no further active bleeding, I would support him being discharged home with a leg bag to follow up later this week as scheduled (Oncology, Dr. Dia.) History & Record Review Additional record(s) reviewed:: Prior inpatient record (Reviewed, under different name/MRN in hospital.) Lab Data Attestation: I reviewed the patient's lab results. Labs: Laboratory Results - last 24 hr 12/19/23 06:50 WBC 11.6 H RBC 3.65 L Hgb 9.7 L Hct 30.5 L MCV 83.6 MCH 26.6 L MCHC 31.8 L RDW Std Deviation 46.2 H RDW Coeff of Joe 15.2 H Plt Count 338 MPV 8.6 Immature Gran % (Auto) 0.600 Neut % (Auto) 80.4 H Lymph % (Auto) 10.6 L [place] % (Auto) 7.4 Eos % (Auto) 0.6 Baso % (Auto) 0.4 Absolute Neuts (auto) 9.3 H Absolute Lymphs (auto) 1.22 Nucleated RBC % 0 Sodium 137 Potassium 3.8 Chloride 103 Carbon Dioxide 27.0 Anion Gap 7 BUN 21 H Creatinine 1.25 Estim Creat Clear Calc 52.11 Est GFR (MDRD) Af Amer 73 Est GFR (MDRD) Non-Af 60 BUN/Creatinine Ratio 16.8 Glucose 143 H Calcium 9.0 Discharge Plan Triage Chief Complaint: Complaint ED Provider: Corby Riddle Dx/Rx/DC Orders Clinical Impression: Mass of right kidney, Hematuria, Acute urinary retention Prescriptions: No Action pantoprazole 40 mg tablet,delayed release (DR/EC) 40 mg PO DAILY Qty: 30 5RF Primary Care Provider: Belgica French Referrals: Belgica French MD [Primary Care Provider] -
[2023-12-19] MEDS: Lidocaine Jelly 2% 20 ML Syringe (URO-JET) 1 APPLIC TOPICAL (06:38)
[2023-12-19] MEDS: Morphine 4 MG/ML Syringe IV (06:38)
--- OUTSIDE RECORDS SUMMARY | 2023-12-19 06:50 | XMS RPT_ITS | CCD ---
Author Name Unknown Address [address] [place] [address] Organization [facility] Care Team Providers Care Supervisor Electron Tube Processing Name Role Phone CatrachoSanti Cori Unavailable Unavailable [...] [Coronary atherosclerosis of unspecified type of vessel, mohegan or graft] Onset: 10-08-2023 10-11-2023 Chronic Disorders [...] weight 68.95 kg Pulm Wstr Work Phone: [facility] 12-14-2023 08:34-0500 Heart rate 92 /min Pulm Wstr Work Phone: [facility] 12-14-2023 08:34-0500 SaO2% (BldA) [Mass fraction] 99 % Pulm Wstr Work Phone: [facility] 12-14-2023 08:01-0500 Body weight 68.95 kg Yoanna Levin MD Work Phone: [facility] 12-03-2023 09:24-0500 Body temperature 99.19 [degF] Treatment Wstr Work Phone: [facility] 12-03-2023 09:24-0500 Body weight 69.17 kg Treatment Wstr Work Phone: [facility] 12-03-2023 09:24-0500 Diastolic blood pressure 61 mm[Hg] Treatment Wstr Work Phone: [facility] 12-03-2023 09:24-0500 Heart rate 71 /min Treatment Wstr Work Phone: [facility] 12-03-2023 09:24-0500 Respiratory rate 18 /min Treatment Wstr Work Phone: [facility] 12-03-2023 09:24-0500 Systolic blood pressure 119 mm[Hg] Treatment Wstr Work Phone: [facility] 11-30-2023 09:31-0500 Body temperature 100.4 [degF] Enio Branch Work Phone: [facility] 11-30-2023 09:31-0500 Body weight 69.17 kg Enio Branch Work Phone: [facility] 11-30-2023 09:31-0500 Diastolic blood pressure 69 mm[Hg] Enio Branch Work Phone: [facility] 11-30-2023 09:31-0500 Heart rate 88 /min Enio Branch Work Phone: [facility] 11-30-2023 09:31-0500 SaO2% (BldA) [Mass fraction] 89 % Enio Branch Work Phone: [facility] 11-30-2023 09:31-0500 Systolic blood pressure 119 mm[Hg] Enio Branch Work Phone: [facility] 07-27-2021 11:00-0400 Body mass index (BMI) [Ratio] 26.85 kg/m2 Santi Lopez Work Phone: [facility] Work Phone: 07-27-2021 11:00-0400 Body surface area Derived from formula 2.03 m2 Santi Hoffmanic Work Phone: [facility] Work Phone: 07-27-2021 11:00-0400 Body temperature 97.2 [degF] Santi Lopez Work Phone: [facility] Work Phone: 07-27-2021 11:00-0400 Body weight 84.88 kg Santi Hoffmanic Work Phone: [facility] Work Phone: 07-27-2021 11:00-0400 Diastolic blood pressure 68 mm[Hg] Santi Lopez Work Phone: [facility] Work Phone: 07-27-2021 11:00-0400 Heart rate 70 /min Santi Hoffmanic Work Phone: [facility] Work Phone: 07-27-2021 11:00-0400 Systolic blood pressure 112 mm[Hg] Santi Hoffmanic Work Phone: [facility] Work Phone: Encounters Encounter Date Encounter Type [...] DTaP,Tdap,Td Vaccine (2 - Td or Tdap) [facility] Start: 11-30-2026 Diabetes Screening Diabetes Screening [facility] Start: 11-12-2026 Diabetes Screening Diabetes Screening [facility] Start: 12-13-2024 BP Controlled (<130/80) BP Controlled (<130/80) [facility] Start: 11-30-2024 BP Controlled (<130/80) BP Controlled (<130/80) [facility] Start: 10-24-2024 BP Controlled (<130/80) BP Controlled (<130/80) [facility] Start: 10-15-2023 Advance Directive Discussion Advance Directive Discussion [facility] Start: 10-15-2023 Depression Assessment Depression Assessment [facility] Start: 06-15-2023 Influenza vaccination Influenza Vaccine (#1) [facility] Start: 01-09-2017 Lipid panel Lipid Screening [facility] Start: 01-09-2013 Hepatitis B surface antibody level LDL Cholesterol [facility] Start: 2010 RSV Vaccine (1 - 1-dose 60+ series) RSV Vaccine (1 - 1-dose 60+ series) [facility] Start: 1995 Screening for malignant neoplasm of colon [facility] Start: 1969 Shingrix Vaccine (1 of 2) Shingrix Vaccine (1 of 2) [facility] Start: 1968 Annual PCP Team Chronic Disease Visit Annual PCP Team Chronic Disease Visit [facility] Start: 1968 Hepatitis C screening Hepatitis C Screening [facility] Start: 1956 Pneumococcal Vaccine: 65+ (1 of 2 - PCV) Pneumococcal Vaccine: 65+ (1 of 2 - PCV) [facility] Start: 03-27-1951 Covid-19 Vaccine (#1) Covid-19 Vaccine (#1) [facility] Start: 1950 Abdominal aortic aneurysm screening Abdominal Aortic Aneurysm Screening [facility] End: 01-12-2025 LUNG DIFFUSION CAPACITY (DLCO) LUNG DIFFUSION CAPACITY (DLCO) PFT Routine Centrilobular emphysema (HCC) 1 Occurrences starting 12/14/2023 until 01/12/2025 [facility] Work Phone: Immunizations Immunization Date Immunization Notes Care Provider Fa brigid 10-08-2023 tetanus toxoid, redu diego diphtheria toxoid, and acellular pertussis vaccine, adsorbed Sonja Elizalde RD Work Phone: [facility] Work Phone: Payers Date Payer Category Payer Medicare [employer] MEDICARE HU[employer]NA GOLD PLUS [id number] 2022-Present [phone] [id number] [place] [id number] HMO [id number] 2022 Private Health Insurance [id number] Unknown Social History Date Type Detail Facility Start: 10-24-2023 End: 11-30-2023 Current every day smoker Current every day smoker [facility] Work Phone: Start: 10-24-2023 Tobacco smoking stat us MOIS Ex-smoker [facility] Work Phone: End: 10-08-2023 History of tobacco use Current smoker [facility] Work Phone: End: 10-08-2023 History of tobacco use Cigarette Smoker [facility] Work Phone: Start: 10-24-2023 Tobacco use and exposure Former smokeless tobacco user [facility] Work Phone: End: 01-08-1961 History of tobacco use Snuff User [facility] Work Phone: End: 01-08-1961 History of tobacco use Chews Tobacco [facility] Work Phone: Start: 10-24-2023 End: 12-14-2023 Alcohol intake Current drinker of alcohol (finding) [facility] Start: 10-24-2023 End: 11-30-2023 Tobacco use panel [facility] National Score (1-100), lower number is lower risk 80 [facility] Start: 01-09-2012 Alcohol Comment stating, occasionall y. [facility] Start: 1950 Sex Assigned At Male [facility] Start: 10-09-2023 Gender identity Identifies as male gender (finding) [facility] Clinical Notes 07-27-2020 to 12-14-2023 Telephone Encounter [...] December 14, 2023 documented in this encounter [facility] 12-14-2023 Note HNO ID: [id number] Author: DESIREE BLAIR RPFT Service: ? Author [...] December 14, 2023 TIME: 8:37 AM Comment: [facility] 12-14-2023 Note HNO ID: [id number] Author: DESIREE BLAIR RPFT Service: ? Author Type: Respiratory Therapist Type: Progress Notes Filed: 12/14/2023 08:37 Note Text: PULM FUNCTION SMARTBLOCK: Provider: Yoanna Levin MD Assisting Tech: Desiree Blair RPFT Oximetry - Ambulation: 1 [facility] 12-14-2023 Note HNO ID: [id number] Author: YOANNA LEVIN MD Service: ? Author Type: Physician Type: Progress Notes Filed: 12/14/2023 09:17 Note Text: . Respiratory Boyle Note Patient name: Santi Moore PCP: Santi [...] k/uL 1.40 Monocytes % % 7.8 Abs Giles <0.87 k/uL 0.89 High Eosinophils % % 0.5 Abs Eosin <0.46 k/uL 0.06 Basophils % % 0.4 Abs Baso <0.11 k/uL 0.04 Immature Granulocytes % % 0.5 Abs Immature Gran <0.10 k/uL 0.06 NRBC /100 WBC 0.0 Absolute nRBC <0.01 k/uL <0.01 Imaging / Diagnostic Studies: DATE OF EXAM: Oct 19 2023 8:34AM [facility] 0060 - NM PET/CT SKULL-THIGH INIT / [...] likely primary.. 4. (more content not included)... [facility] 12-14-2023 Procedure note Associated Ord [...] 8:37 AM Comment: documented in this encounter [facility] 12-14-2023 History of Presen t illness Narrative PULM FUNCTION SMARTBLOCK: Provider: Yoanna Levin MD Assisting Tech: Desiree Blair RPFT Oximetry - Ambulation: 1 documented in this encounter [facility] 12-14-2023 History of Presen t illness Narrative Images from the original note were not included. . Respiratory Boyle Note Patient name: Santi Moore PCP: Santi [...] k/uL 1.40 Monocytes % % 7.8 Abs Giles <0.87 k/uL 0.89 High Eosinophils % % 0.5 Abs Eosin <0.46 k/uL 0.06 Basophils % % 0.4 Abs Baso <0.11 k/uL 0.04 Immature Granulocytes % % 0.5 Abs Immature Gran <0.10 k/uL 0.06 NRBC /100 WBC 0.0 Absolute nRBC <0.01 k/uL <0.01 Imaging / Diagnostic Studies: DATE OF EXAM: Oct 19 2023 8:34AM [facility] 0060 - NM PET/CT SKULL-THIGH INIT / [...] tablet by mouth daily at 6 am. zaitvbqcrly-yukrnofsh-nwptecig (TRELEGY ELLIPTA) 100-62.5-25 mcg inhalation powder Inhale [...] of nutritional supplements Yoanna Levin MD Respiratory Boyle documented in this encounter [facility] 12-13-2023 Miscellaneous Notes I spoke with the patient's Cici today. The patient is active with [employer] Medicare, LOC 80%, $0.00 deductible has $0.00 remaining, $5400.00 OOP has $0.00 remaining. An estimate shows the patient's financial responsibility is $0.00 for each treatment in 2023 until the O-O-P max is reached. The patient stated understanding. Reference # [id number]. The patient's Cici started asking for help with her 's [facility] balance. I told her to call and set up an appointment with a PFA. I provided her with the different ways to set an appointment. I told her that if her is still going to be receiving treatment in 2024 I would look for financial assistance. Cost Facit documented in this encounter [facility] 12-12-2023 Note HNO ID: [id number] Author: SONJA ELIZALDE RD Service: ? Author Type: Registered Dietitian Type: Progress Notes Filed: 12/13/2023 16:41 Note Text: Called patient for phone visit - no answer. Left message to call back. [facility] 12-12-2023 Note Education (JUSTEN) SANTI MOORE ([id number]) 1950 M Date Time Provider Department 12/12/23 [...] for Encounter Date Provider Department Center 12/12/2023 [id number], AMANDA JUSTEN Lindsay [facility] Encounter Status:Closed by SONJA ELIZALDE on 12/13/23 [facility] 12-12-2023 History of Presen t illness Narrative Called patient for phone visit - no answer. Left message to call back. documented in this encounter [facility] 11-30-2023 Note HNO ID: [id number] Author: ENIO BRANCH, ? Service: ? Author [...] Surrounding groundglass o (more content not included)... [facility] 11-30-2023 Miscellaneous Notes SOCIAL WORK [...] Yes DERIK Fernandez-Erlinda documented in this encounter [facility] 11-30-2023 History of Presen t illness Narrative [...] of visits and imaging. Will discuss with SEMICONDUCTOR LAB TECHNICIAN RECOMMENDATION/PLAN: Plan SA pembrolizumab and PDL positivity - C1D1 11/12/2023 - plan for C2 next week, pending remaining labs - consult SW Cough, acute on chronic - suspect infectious, productive ongoing for months - low grade fevers - will send ABX, mucinex today - low threshold to repeat CT Advised to present to ED with worsening cough or increased bleeding Enio Branch, [place]LLAND.LICENSED HOME INSPECTOR I spent >50 minutes in the visit, with more than 50% of the total rtnn-eg-xmkh time of the visit in counseling / [...] of this patient. documented in this encounter [facility] 11-28-2023 Miscellaneous Notes Idalia Care Coordination FOLLOW-UP [...] November 28, 2023 documented in this encounter [facility] 11-21-[address] Dobson aware and [...] Please call her back when able at [phone] Lissette Kincaid documented in this encounter [facility] 11-21-2023 Note HNO ID: [id number] Author: SONJA ELIZALDE RD Service: ? Author Type: Registered Dietitian Type: Progress Notes Filed: 11/23/2023 08:59 Note Text: Oncology Nutrition Therapy Initial Assessment I have communicated my name and active licensure. The patient's identity and physical location were verified at the time of this visit. Either the patient or their legal sales representative printing paper has been informed of the risks and [...] first week of April. Social- moved from [place] Anthropometrics: HEIGHT/WEIGHT/BSA HEIGHT BODY SURFACE AREA WEIGHT [...] minutes Signed by: Sonja Elizalde RD, LD [facility] 11-21-2023 Note Education (JUSTEN) SANTI MOORE ([id number]) 1950 M Date Time Provider Department 11/21/23 [...] Encounter Status:Closed by SONJA ELIZALDE on 11/23/23 [facility] 11-21-2023 History of Presen t illness Narrative Oncology Nutrition Therapy Initial Assessment I have communicated my name and active licensure. The patient's identity and physical location were verified at the time of this visit. Either the patient or their legal sales representative printing paper has been informed of the risks and [...] first week of April. 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 Author Type: Registered Dietitian Type: Progress Notes Filed: 11/16/2023 17:11 Note Text: Oncology Nutrition Therapy Initial Assessment I have communicated my name and active licensure. The patient's identity and physical location were verified at the time of this visit. Either the patient or their legal sales representative printing paper has been informed of the risks and [...] minutes Signed by: Sonja Elizalde RD, GENA [facility] 11-16-2023 Miscellaneous Notes Daughter called stating they just missed a call from you, Patient and spouse are not home and spouse left her phone at home requesting a return call on patients phone at [phone] documented in this encounter [facility] 11-16-2023 History of Presen t illness Narrative Oncology Nutrition Therapy Initial Assessment I have communicated my name and active licensure. The patient's identity and physical location were verified at the time of this visit. Either the patient or their legal sales representative printing paper has been informed of the risks and [...] minutes Signed by: Sonja Elizalde RD, GENA documented in this encounter [facility] 11-12-2023 Note HNO ID: [id number] Author: MICKI FRANCO RN Service: ? Author [...] WBC and platelets. OK to treat today. [facility] 10-31-2023 Note HNO ID: [id number] Author: AIMEE LEE RN Service: ? Author Type: Registered Nurse Type: Progress Notes Filed: 10/31/2023 17:00 Note Text: Patient teaching was completed over the phone. Aimee Lee RN [facility] 10-31-2023 Note HNO ID: [id number] Author: AIMEE LEE RN Service: ? Author Type: Registered Nurse Type: Progress Notes Filed: 10/31/2023 17:00 Note Text: Wire Frame Dipper Pre Chemo Patient identified by name and date of . YES Confirmed date and time for chemotherapy ? YES Other appointments (labs, imaging) discussed? 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 Author [...] at a later time. Aimee Lee RN [facility] 10-24-2023 Note HNO ID: [id number] Author: LOC DOBSON MD Service: ? Author [...] which included preparing to see the patient, qygl-jk-keph patient care, completing clinical documentation, obtaining and/or reviewing separately obtained history, performing a medically appropriate examination, counseling and educating the patient/family/caregiver, ordering medications, tests, or procedures, communicating with other HCPs (not separately reported), independently interpreting results (not separately reported), communicating results to the patient/family/caregiver, and care coordination (not separately reported). Electronically Signed: Loc Dobson MD October 24, 2023 8:50 AM [facility] 10-19-2023 Note HNO ID: [id number] Author: RACHAEL GARVEY RT(R) Service: Nuclear Medicine [...] 0734 PATIENT DISCHARGED TO: Ambulatory patient, left [place] department area. A Diagnostic radioactive procedure has taken place, with no further precautions necessary other than routine body substance precautions. More information regarding radiation safety can be found using this link: [email or web address] SIGNATURE: RT Dave(R) PATIENT NAME: Santi Moore DATE: October 19, 2023 TIME: 7:49 AM PAGER/CONTACT #: [facility] 10-11-2023 Note HNO ID: [id number] Author: Kimmie Gibbs APRN.LICENSED HOME INSPECTOR Service: Cardiovascular Medicine Author Type: Nurse Practitioner [...] Radiology: Laboratory: Reviewed Other: SIGNATURE: Kimmie Gibbs APRN.LICENSED HOME INSPECTOR CELL TEXT : [phone] DATE: October 11, 2023 TIME: 1:05 PM [facility] 10-10-2023 Note HNO ID: [id number] Author: Fifi Jacobo MD Service: General Internal [...] -- 10/09/23 0815 activity - mobilize patient ([place]) VTE Prophylaxis: VTE prophylaxis appropriate SIGNATURE: Fifi Jacobo MD PATIENT NAME: Santi Moore [facility] 10-09-2023 Note HNO ID: [id number] Author: Marilyn Lopes RN Service: ? Author Type: Registered Nurse Type: Nursing Progress Note Filed: 10/09/2023 9:00 AM Note Text: Dr. Dobson was contacted regarding consult.not Doug [facility] documented as of this encounter (statuses as of 11/17/2023) [facility]12-25-2023 History of Past illness Narrative* Problem Noted Date Diagnosed Date Resolved Date Leukocytosis 10/08/2023 10/11/2023 Syncope 10/08/2023 10/11/2023 documented as of this encounter (statuses as of 11/22/2023) [facility] History of Past illness Narrative* Problem Noted Date Diagnosed Date Resolved Date Leukocytosis 10/08/2023 10/11/2023 Syncope 10/08/2023 10/11/2023 documented as of this encounter (statuses as of 11/23/2023) [facility] History of Past illness Narrative* Problem Noted Date Diagnosed Date Resolved Date Leukocytosis 10/08/2023 10/11/2023 Syncope 10/08/2023 10/11/2023 documented as of this encounter (statuses as of 11/28/2023) [facility] History of Past illness Narrative* Problem Noted Date Diagnosed Date Resolved Date Leukocytosis 10/08/2023 10/11/2023 Syncope 10/08/2023 10/11/2023 documented as of this encounter (statuses as of 11/30/2023) [facility] History of Past illness Narrative* Problem Noted Date Diagnosed Date Resolved Date Leukocytosis 10/08/2023 10/11/2023 Syncope 10/08/2023 10/11/2023 documented as of this encounter (statuses as of 12/03/2023) [facility] History of Past illness Narrative* Problem Noted Date Diagnosed Date Resolved Date Leukocytosis 10/08/2023 10/11/2023 Syncope 10/08/2023 10/11/2023 documented as of this encounter (statuses as of 12/03/2023) [facility] History of Past illness Narrative* Problem Noted Date Diagnosed Date Resolved Date Leukocytosis 10/08/2023 10/11/2023 Syncope 10/08/2023 10/11/2023 documented as of this encounter (statuses as of 12/07/2023) [facility] History of Past illness Narrative* Problem Noted Date Diagnosed Date Resolved Date Leukocytosis 10/08/2023 10/11/2023 Syncope 10/08/2023 10/11/2023 documented as of this encounter (statuses as of 12/14/2023) [facility] History of Past illness Narrative* Problem Noted Date Diagnosed Date Resolved Date Leukocytosis 10/08/2023 10/11/2023 Syncope 10/08/2023 10/11/2023 documented as of this encounter (statuses as of 12/14/2023) [facility] History of Past illness Narrative* Problem Noted Date Diagnosed Date Resolved Date Leukocytosis 10/08/2023 10/11/2023 Syncope 10/08/2023 10/11/2023 documented as of this encounter (statuses as of 12/14/2023) [facility] History of Past illness Narrative* Problem Noted Date Diagnosed Date Resolved Date Leukocytosis 10/08/2023 10/11/2023 Syncope 10/08/2023 10/11/2023 documented as of this encounter (statuses as of 12/14/2023) [facility] History of Past illness Narrative* Problem Noted Date Diagnosed Date Resolved Date Leukocytosis 10/08/2023 10/11/2023 Syncope 10/08/2023 10/11/2023 documented as of this encounter (statuses as of 12/14/2023) [facility] History of Present illness Narrative* Explains he has been having some difficulty with some right wrist swollen and painful since Sunday,using hammer. Has been having more difficulty with using the wrist since this time. Denies any fever chills denies any nausea vomiting diarrhea constipation. * A year ago patient fell and hurt right wrist. [facility] [facility] Work Phone: Evaluation note* Diagnosis Squamous carcinoma of lung, left (HCC) Severe protein-calorie malnutrition (HCC) Other severe protein-calorie malnutrition [facility] Diagnosis Severe protein-calorie malnutrition (HCC)- Primary Other severe protein-calorie malnutrition Squamous cell carcinoma lung, left (HCC) [facility] Squamous cell carcinoma lung, left (HCC)- Primary [facility] Diagnosis Squamous cell carcinoma lung, left (HCC)- Primary Cough, unspecified type Acute upper respiratory infection Acute upper respiratory infections of unspecified site [facility] Diagnosis Severe protein-calorie malnutrition (HCC)- Primary Other severe protein-calorie malnutrition Squamous cell carcinoma lung, left (HCC) Weight loss, unintentional Loss of weight [facility] Diagnosis Centrilobular emphysema (HCC) Other emphysema [facility] Diagnosis Centrilobular emphysema (HCC)- Primary Other emphysema Metastatic non-small cell lung cancer (HCC) Former cigarette smoker Personal history of tobacco use, presenting hazards to health Cachexia (HCC) Cachexia documented in this encounter [facility] for referral (narrative)* Outpatient Procedure (Routine) - Authorized Specialty Diagnoses / Procedures Referred By Contac t Referred To [facility] Diagnoses Centrilobular emphysema (HCC) Procedures LUNG DIFFUSION CAPACITY (DLCO) DIFFUSING CAPACITY Yoanna Levin MD [address] [place] [address] [place] [address] Referral ID Status Reason Start Date Expiration Date Visits Requested Visits Authorized [id number] Authorized Auto-Generat ed Referral 12/14/2023 01/12/2025 1 1 * Outpatient Procedure (Routine) - Pending Review Specialty Diagnoses / Procedures Referred By Contac t Referred To Contact [facility] Diagnoses Centrilobular emphysema (HCC) Procedures LUNG VOLUMES Yoanna Levin MD [address] [place] [address] [address] Referral ID Status Reason Start Date Expiration Date Visits Requested Visits Authorized [id number] Pending Review Auto-Generat ed Referral 12/14/2023 01/12/2025 1 1 * Outpatient Procedure (Routine) - Authorized Specialty Diagnoses / Procedures Referred By Contac t Referred To Contact [facility] Diagnoses Centrilobular emphysema (HCC) Procedures SPIROMETRY WITH DILATOR IF OBSTRUCTED BRNCDILAT RSPSE SPMTRY PRE&POST-BRNCDILAT ADMN Yoanna Levin MD [address] [place] [address] [id number] [place] [address] Referral ID Status Reason Start Date Expiration Date Visits Requested Visits Authorized [id number] Authorized Auto-Generat ed Referral 12/14/2023 01/12/2025 1 1 * Consult, Test, Treat (Routine) - Authorized Specialty Diagnoses / Procedures Referred By Contac t Referred To Contact Diagnoses Centrilobular emphysema (HCC) Metastatic non-small cell lung cancer (HCC) Procedures CONSULT TO PALLIATIVE CARE OFFICE/OUTPATIENT [facility] 60 MINUTES Yoanna Levin MD [address] [place] [address] Referral ID Status Reason Start Date Expiration Date Visits Requested Visits Authorized [id number] Authorized PCP Requested Referral 12/14/2023 12/13/2024 1 1 * Outpatient Procedure (Routine) - Closed Specialty Diagnoses / Procedures Referred By Contac t Referred To Contact [facility] Diagnoses Centrilobular emphysema (HCC) Procedures OXIMETRY WITH AMBULATION NONINVASIVE EAR/PULSE OXIMETRY MULTIPLE Yoanna Khan MD [address] [place] [address] [address] Referral ID Status Reason Start Date Expiration Date V isits Requested Visits Authorized [id number] Closed Auto-Generate d Referral 12/14/2023 01/12/2025 1 1 [facility] Summary Purpose Family History No Family History [...] FoundDocuments on File Type Date Recorded 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 Additional Source Comments (unrecognized sect ion and content) No Status Records FoundNo Status Records FoundNo Status Records FoundNo Status Records FoundNo Status Records FoundNo Status Records Found INFORMATION SOURCE (unrecogn ized section and content) DATE CREATED AUTHOR AUTHOR'S ORGANIZ ATION 07/28/2021 [facility] DATE CREATED AUTHOR AUTHOR'S ORGANIZ ATION 08/04/2021 [facility] [place] DATE CREATED AUTHOR AUTHOR'S ORGANIZ ATION 10/20/2023 [facility] DATE CREATED AUTHOR AUTHOR'S ORGANIZ ATION 11/30/2023 [facility] DATE CREATED AUTHOR AUTHOR'S ORGANIZ ATION 12/14/2023 [facility] Source Comments (unrecognize d section and content) In the event this informatio n is protected by the Federal Confidentiality of Alcohol and Drug Abuse Patient Records regulations: The Federal rules restrict any use of the information to criminally investigate or prosecute any alcohol or drug abuse patient.[facility] the event this information is protected by the Federal Confidentiality of Alcohol and Drug Abuse Patient Records regulations: The Federal rules restrict any use of the information to criminally investigate or prosecute any alcohol or drug abuse patient.[facility] the event this information is protected by the Federal Confidentiality of Alcohol and Drug Abuse Patient Records regulations: The Federal rules restrict any use of the information to criminally investigate or prosecute any alcohol or drug abuse patient.[facility] the event this information is protected by the Federal Confidentiality of Alcohol and Drug Abuse Patient Records regulations: The Federal rules restrict any use of the information to criminally investigate or prosecute any alcohol or drug abuse patient.[facility] the event this information is protected by the Federal Confidentiality of Alcohol and Drug Abuse Patient Records regulations: The Federal rules restrict any use of the information to criminally investigate or prosecute any alcohol or drug abuse patient.[facility] the event this information is protected by the Federal Confidentiality of Alcohol and Drug Abuse Patient Records regulations: The Federal rules restrict any use of the information to criminally investigate or prosecute any alcohol or drug abuse patient.[facility] the event this information is protected by the Federal Confidentiality of Alcohol and Drug Abuse Patient Records regulations: The Federal rules restrict any use of the information to criminally investigate or prosecute any alcohol or drug abuse patient.[facility] the event this information is protected by the Federal Confidentiality of Alcohol and Drug Abuse Patient Records regulations: The Federal rules restrict any use of the information to criminally investigate or prosecute any alcohol or drug abuse patient.[facility] the event this information is protected by the Federal Confidentiality of Alcohol and Drug Abuse Patient Records regulations: The Federal rules restrict any use of the information to criminally investigate or prosecute any alcohol or drug abuse patient.[facility] the event this information is protected by the Federal Confidentiality of Alcohol and Drug Abuse Patient Records regulations: The Federal rules restrict any use of the information to criminally investigate or prosecute any alcohol or drug abuse patient.[facility] the event this information is protected by the Federal Confidentiality of Alcohol and Drug Abuse Patient Records regulations: The Federal rules restrict any use of the information to criminally investigate or prosecute any alcohol or drug abuse patient.[facility] the event this information is protected by the Federal Confidentiality of Alcohol and Drug Abuse Patient Records regulations: The Federal rules restrict any use of the information to criminally investigate or prosecute any alcohol or drug abuse patient.[facility] the event this information is protected by the Federal Confidentiality of Alcohol and Drug Abuse Patient Records regulations: The Federal rules restrict any use of the information to criminally investigate or prosecute any alcohol or drug abuse patient.[facility] Reason for Visit (unrecogniz ed section and content) Reason Comments Care Coordination Toxicity Check Reason Comments Nutrition Counseling Reason Comments Care Coordination Follow Up Note Reason Comments Social Work Services Reason Comments Chemotherapy Treatment Specialty Diagnoses / Procedures Referred By Sea t Referred To Contact Diagnoses Squamous cell carcinoma lung, left (HCC) Procedures [place] [address] [place] [address] [facility] [address] [place] [address] Referral ID Status Reason Start Date Expiration Date V isits Requested Visits Authorized [id number] Authorized 11/02/2023 02/15/2024 5 5 Reason Comments Established Patient Reason Comments Patient Question Reason Comments Nutrition Telephone No Show Reason Comments Spirometry Specialty Diagnoses / Procedures Referred By Contac t Referred To Contact [facility] Diagnoses Centrilobular emphysema (HCC) Procedures OXIMETRY WITH AMBULATION NONINVASIVE EAR/PULSE OXIMETRY Yoanna Ingram MD [address] [place] [address] [address] [place] [address] Referral ID Status Reason Start Date Expiration Date V isits Requested Visits Authorized [id number] Closed Auto-Generate d Referral 12/14/2023 01/12/2025 1 1 Reason Comments New Patient SCC of lung Reason Comments [id number] Initial Consult Care Teams (unrecognized sec tion and content) 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 [employer] Relationship Specialty Start Date End Date Santi Lopez MD [address] [place], [place] [address] PCP - General Family Medicine 10/31/23 Loc Dobson MD [address] [place] [id number] Hematology/Oncology 10/29/23 Aimee Lee, ELISABETH [address] [place], [place] [address] Specialty Wire Frame Dipper Hematology/Oncology 10/29/23 Supervisor [employer] Relationship Specialty Start Date End Date Santi Lopez MD [address] [place] [address] PCP - General Family Medicine 10/31/23 Loc Dobson MD [address] [place] [address] Hematology/Oncology 10/29/23 Aimee Lee, RN [address] [place] [address] Specialty Wire Frame Dipper Hematology/Oncology 10/29/23 Supervisor [employer] Relationship Specialty Start Date End Date Santi Lopez MD [address] [place] [address] PCP - General Family Medicine 10/31/23 Loc Dobson MD [address] [place] [address] Hematology/Oncology 10/29/23 Aimee Lee, ELISABETH [address] [place] [address] Specialty Wire Frame Dipper Hematology/Oncology 10/29/23 Supervisor [employer] Processing Relationship Specialty Start Date End Date Santi Lopez MD [address] [place] [address] PCP - General Family Medicine 10/31/23 Loc Dobson MD [address] [place] [address] Hematology/Oncology 10/29/23 Aimee Lee, ELISABETH [address] [place] [address] Specialty Wire Frame Dipper Hematology/Oncology 10/29/23 Supervisor [employer] Processing Relationship Specialty Start Date End Date Snati Lopez MD [address] [place] [address] PCP - General Family Medicine 10/31/23 Loc Dobson MD [address] [place] [address] Hematology/Oncology 10/29/23 Aimee Lee, RN [address] [place] [address] Specialty Wire Frame Dipper Hematology/Oncology 10/29/23 Supervisor Electron [employer] Processing Relationship Specialty Start Date End Date Santi Lopez MD [address] [place] [address] PCP - General Family Medicine 10/31/23 Loc Dobson MD [address] [place] [address] Hematology/Oncology 10/29/23 Aimee Lee, ELISABETH [address] [place] [address] Specialty Wire Frame Dipper Hematology/Oncology 10/29/23 Supervisor Electron T[employer] Processing Relationship Specialty Start Date End Date Santi Lopez MD [address] [place] [address] PCP - General Family Medicine 10/31/23 Loc Dobson MD [address] [place] [address] Hematology/Oncology 10/29/23 Aimee Lee, RN [address] [place] [address] Specialty Wire Frame Dipper Hematology/Oncology 10/29/23 Supervisor Electron [employer] Processing Relationship Specialty Start Date End Date Santi Lopez MD [address] [place] [address] PCP - General Family Medicine 10/31/23 Loc Dobson MD [address] [place] [address] Hematology/Oncology 10/29/23 Aimee Lee RN [address] [place] [address] Specialty Wire Frame Dipper Hematology/Oncology 10/29/23 Supervisor Electron [employer] Relationship Specialty Start Date End Date Santi Lopez MD [address] [place] [address] PCP - General Family Medicine 10/31/23 Loc Dobson MD [address] [place] [address] Hematology/Oncology 10/29/23 Aimee Lee, ELISABETH [address] [place] [address] Specialty Wire Frame Dipper Hematology/Oncology 10/29/23 Supervisor Electron [employer] Processing Relationship Specialty Start Date End Date Santi Lopez MD [address] [place] [address] PCP - General Family Medicine 10/31/23 Loc Dobson MD [address] [place] [address] Hematology/Oncology 10/29/23 Aimee Lee RN [address] [place] [address] Specialty Wire Frame Dipper Hematology/Oncology 10/29/23 Supervisor Electron [employer] Processing Relationship Specialty Start Date End Date Santi Lopez MD [address] [place] [address] PCP - General Family Medicine 10/31/23 Loc Dobson MD [address] [place] [address] Hematology/Oncology 10/29/23 Aimee Lee RN [address] [place] [address] Specialty Wire Frame Dipper Hematology/Oncology 10/29/23 Inactive Administered Medications - up [...] BE BASED ON THE PRIMARY CLINICAL RECORDS. [employer] provides no warranty or guarantee of the accuracy or completeness of information in this document.
[2023-12-19 06:55] LABS: Bacteria 0 SEEN /hpf (None Seen); Mucous, Urine 0 SEEN /hpf (<or=2+); Squamous Epithelial Cells - UA 0 SEEN /hpf (0-5)
[2023-12-19 06:59] LABS: Absolute Lymphocyte Count 1.22 X10^3/uL (0.83-4.51); Absolute Neutrophil Count 9.3 X10^3/uL (2.0-7.7); Basophil# 0.05 X10^3/uL; Basophil% 0.4 % (0-1); Eosinophil# 0.07 X10^3/uL; Eosinophils% 0.6 % (0-5); Hematocrit 30.5 % (40-54); Hemoglobin 9.7 g/dL (13.0-16.5); Lymphocyte # 1.22 X10^3/ul (0.83-4.51); Lymphocyte % 10.6 % (19-41); Mean Corp Hgb Conc 31.8 g/dL (32-36); Mean Corpuscular Hgb 26.6 pg (27.0-32.0); Mean Corpuscular Volume 83.6 fL (80-94); Mean Platelet Vol. 8.6 fl (6.2-12.0); Monocyte# 0.86 X10^3/uL; Monocyte% 7.4 % (0-10); NRBC Flagged by Analyzer 0 % (0-5); Neutrophil # 9.28 X10^3/uL (2.7-7.7); Neutrophil % 80.4 % (47-70); Platelet Count 338 K/mm3 (150-450); RBC Distribution Width CV 15.2 % (11.6-14.6); RBC Distribution Width SD 46.2 fl (35.1-43.9); Red Blood Count 3.65 M/mm3 (4.6-6.2); White Blood Count 11.6 K/mm3 (4.4-11.0)
[2023-12-19 07:16] LABS: Anion Gap 7 (5-15); BUN 21 mg/dL (7-18); BUN/Creat Ratio 16.8 RATIO (10-20); Chloride 103 mmol/L (98-107); Creatinine, Serum 1.25 mg/dL (0.70-1.30); EST Glomerular Filtration Rate 60 mL/min (>60); Est Glom Filt Rate - Afr Amer 73 mL/min (>60); Estimated Creatinine Clearance 52.11 ml/min; Glucose 143 mg/dL (74-106); Potassium 3.8 mmol/L (3.5-5.1); Sodium Level 137 mmol/L (136-145)
[2023-12-19 07:46] LABS: Color, Urine Red (Yellow); Glucose, Dipstick Normal (Normal); Ketone-Dipstick 5 mg/dl (Negative); Leukocyte Esterase-Dipstick 25 /ul (Negative); Nitrite-Dipstick Negative (Negative); Occult Blood-Urine 250 /ul (Negative); Protein-Dipstick 500 mg/dl (Negative); Specific Gravity, Urine 1.015 (1.002-1.030); Urine Bilirubin Dipstick Negative (Negative); Urine Clarity Turbid (Clear); Urine Urobilinogen Normal (Normal)
[2023-12-19 07:59] LABS: Red Blood Cells-Urine 50-100 SEEN /hpf (0-5); White Blood Cells 0-5 SEEN /hpf (0-5)
--- NOTE | 2023-12-19 10:40 | ED.RN ---
IRRIGATION BAG EMPTY. PT CATHETER CLOTTING B ACK UP DR. SEWELL
--- NOTE | 2023-12-19 13:00 | PCM.HP.STD ---
HPI - General HPI Narrative JENNIFER MOORE, is a 73 M who presents [facility] Medical History CAD (coronary artery disease) Hearing problem HLD (hyperlipidemia) HTN (hypertension) Lung cancer Renal mass Home Medications pantoprazole 40 mg tablet,delayed release 40 mg PO DAILY #30 tabs 10/25/23 [Rx Last Taken Unknown] Allergy/AdvReac Type Severity Reaction Status Date / Time No Known Allergies Allergy Verified 12/19/23 06:17 Family History (Updated 10/25/23 @ 09:[address] 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 Smoking Status: Former smoker quit date: 10/08/23 pack-years: 60 Smokeless tobacco user: other Electronic Cigarette Use: not used alcohol intake: former year quit: 2022 substance use type: does not use what type of physical activity do you participate in: none do you feel safe at home: Yes Vital Signs Vital Signs Vital Signs: 12/19/23 06:18 12/19/23 07:17 12/19/23 07:52 Temperature 97.3 F L Temperature Source Temporal Pulse Rate 99 80 77 Respiratory Rate 18 16 16 Blood Pressure 124/86 H 111/83 H 119/71 Blood Pressure Mean 98 92 87 Pulse Ox 94 98 98 Oxygen Delivery Method Room Air Room Air Room Air 12/19/23 09:37 12/19/23 11:07 12/19/23 12:21 Temperature Temperature Source Pulse Rate 76 73 Respiratory Rate 16 16 Blood Pressure 144/82 H 124/67 H 141/66 H Blood Pressure Mean 102 86 91 Pulse Ox 98 98 95 Oxygen Delivery Method Room Air Room Air Room Air Weight Weight: 70 kg Body Mass Index (BMI) 22.1 Results Lab / Micro Data 12/19/23 06:50 12/19/23 06:50 Labs: Laboratory Results - last 24 hr 12/19/23 06:50: WBC 11.6 H, RBC 3.65 L, Hgb 9.7 L, Hct 30.5 L, MCV 83.6, MCH 26.6 L, MCHC 31.8 L, RDW Std Deviation 46.2 H, RDW Coeff of Joe 15.2 H, Plt Count 338, MPV 8.6, Immature Gran % (Auto) 0.600, Neut % (Auto) 80.4 H, Lymph % (Auto) 10.6 L, [place] % (Auto) 7.4, Eos % (Auto) 0.6, Baso % (Auto) 0.4, Absolute Neuts (auto) 9.3 H, Absolute Lymphs (auto) 1.22, Nucleated RBC % 0, Sodium 137, Potassium 3.8, Chloride 103, Carbon Dioxide 27.0, Anion Gap 7, BUN 21 H, Creatinine 1.25, Estim Creat Clear Calc 52.11, Est GFR (MDRD) Af Amer 73, Est GFR (MDRD) Non-Af 60, BUN/Creatinine Ratio 16.8, Glucose 143 H, Calcium 9.0, Urine Color Red, Urine Clarity Turbid, Urine pH 7.0, Ur Specific [place] 1.015, Urine Protein 500 H, Urine Glucose (UA) Normal, Urine Ketones 5 H, Urine Occult Blood 250 H, Urine Nitrite Negative, Urine Bilirubin Negative, Urine Urobilinogen Normal, Ur Leukocyte Esterase 25 H, Urine RBC 50-100 SEEN, Urine WBC 0-5 SEEN, Ur Squamous Epith Cells 0 SEEN, Urine Bacteria 0 SEEN, Urine Mucus 0 SEEN
--- NOTE | 2023-12-19 13:38 | NURSING ---
MED SURG OBS MOSTELLER HEMATURIA, URINARY OUTLET OBSTRUCTION
--- NOTE | 2023-12-19 13:58 | NURSING ---
CALLED [facility] ABOUT TRANSFER. RN TALKED TO TRANSFER LINE
--- NOTE | 2023-12-19 14:32 | NURSING ---
CALLED [facility], ETA IS WITHIN THE HOUR
== END 2023-12-19 15:12 | disposition short-term general hospital (02) ==
PROVIDERS: Emergency Provider Emergency Medicine; PCP Internal Medicine; Visit Provider Emergency Medicine
DX: N28.89 Other specified disorders of kidney and ureter (principal); C34.90 Malignant neoplasm of unspecified part of unspecified bronchus or lung; Z87.891 Personal history of nicotine dependence
CPT/HCPCS: 51702; 80048; 81001; 85025; 87086; 96374; 99285; A4216

== ENCOUNTER 2024-01-21 20:46 | Inpatient (IN) | payer MEDICARE, SELFPAY ==
[2024-01-21 20:47] VITALS: BP 105/59; PULSE 78; PULSE 81; RESP 20; RESP 26; TEMP 36.7; O2SAT 93; O2SAT 94; BMI 22.4
--- NOTE | 2024-01-21 21:18 | EKG12_ITS ---
Test Reason : Blood Pressure : / mmHG Vent. Rate : 077 BPM Atrial Rate : 077 BPM P-R Int : 144 ms QRS Dur : 094 ms QT Int : 360 ms P-R-T Axes : 067 015 068 degrees QTc Int : 407 ms Normal sinus rhythm Normal ECG Confirmed by Bhavik Paul ([id number]), newspaper editor SONJA GARNER ([id number]) on 01/23/2024 5:45:38 AM Referred By: Confirmed By:Bhavik Paul
--- NOTE | 2024-01-21 21:18 | CT_ITS ---
EXAM: CT HEAD WITHOUT INTRAVENOUS CONTRAST CLINICAL INDICATION: head injury and LOC TECHNIQUE: Multiple axial images were obtained of the head without intravenous contrast. This CT exam was performed using one or more of the following dose reduction techniques: automated exposure control, adjustment of the mA and/or kV according to patient size, and/or use of iterative reconstruction technique. RADIATION DOSE: Total DLP: 796.11 mGy-cm. COMPARISON: No relevant prior studies available. FINDINGS: BRAIN AND EXTRA-AXIAL SPACES: Minimal age-related cortical atrophy. Mild patchy chronic small vessel ischemic changes are noted within the deep white matter tracts. Tiny old lacunar infarction within the anterior limb of the left internal capsule. No intra- or extra-axial hemorrhage. No intracranial mass or mass effect. Posterior fossa structures are unremarkable. No hydrocephalus. Basal cisterns are patent. BONES/JOINTS: Old nasal bone fracture. No discrete lytic or blastic abnormalities. No acute linear or depressed skull fracture. SOFT TISSUES: Unremarkable. No scalp hematoma. VASCULATURE: Atherosclerotic vascular calcification is present. The middle cerebral arteries are not hyperdense. SINUSES: Unremarkable as visualized. Clear. MASTOID AIR CELLS: Unremarkable. Clear. ORBITS: Previous cataract extraction. CT/Brain/Head without Contrast IMPRESSION: Age-related atrophy with patchy chronic small vessel ischemic changes. No skull fracture or acute intracranial hemorrhage. Electronically Signed: Tyrese Ling MD at 22:08 EDT ,
[2024-01-21] MEDS: 0.9% Normal Saline (1000mL) 1,000 ML 999 ML IV (21:43)
--- NOTE | 2024-01-21 21:49 | RAD_ITS ---
EXAM: XR CHEST, 1 VIEW CLINICAL INDICATION: chest pain TECHNIQUE: Frontal view of the chest. COMPARISON: Chest radiograph and chest CT of 12/17/2023. FINDINGS: LUNGS AND PLEURAL SPACES: The cavitary left perihilar mass and left upper lobe atelectasis are again noted; the central gas-filled cavity within the collapsed left upper lobe measures 4 x 2.9 cm in diameter as compared with 4.4 x 5 cm on the prior study. There is increasing patchy airspace disease within the left lower lobe, consistent with pneumonia/postobstructive pneumonitis. Discoid atelectasis has developed at the left lung base laterally. Left hemidiaphragm is now obscured by an enlarged left pleural effusion with a moderate left pleural effusion now present. On the right, there is a stable 8 mm noncalcified nodule at the right lung base, probably nipple shadow though metastatic nodules were seen in the right lung on the prior chest CT. No acute infiltrates are seen within the right lung on the current study. Left-sided volume loss is mildly worsened with increasing hyperinflation of the right lung. HEART: Heart size remains within normal limits. Visualized pulmonary vascular markings are normal. MEDIASTINUM: No mediastinal widening. Increasing mediastinal shift to the left due to left-sided volume loss. BONES/JOINTS: Extensive thoracic degenerative spurring is again noted. No acute fracture. SOFT TISSUES: Unremarkable. RAD/Chest 1 View (Portable) IMPRESSION: 1. Cavitary left perihilar mass and left upper lobe atelectasis is again noted. Developing patchy airspace disease in the left lower lung due to pneumonia or postobstructive pneumonitis. Enlarging left pleural effusion. 2. Mild worsening of left-sided volume loss with increasing right lung hyperinflation and with increasing mediastinal shift to the left. Electronically Signed: Tyrese Ling MD at 22:50 EDT ,
[2024-01-21 21:56] LABS: Absolute Neutrophil Count 17.6 X10^3/uL (2.0-7.7); Basophil# 0.05 X10^3/uL; Basophil% 0.3 % (0-1); Hematocrit 31.6 % (40-54); Hemoglobin 10.1 g/dL (13.0-16.5); Lymphocyte % 4.1 % (19-41); Mean Corpuscular Hgb 26.1 pg (27.0-32.0); Mean Corpuscular Volume 81.7 fL (80-94); Mean Platelet Vol. 8.5 fl (6.2-12.0); Monocyte# 1.14 X10^3/uL; Monocyte% 5.8 % (0-10); NRBC Flagged by Analyzer 0 % (0-5); Neutrophil # 17.61 X10^3/uL (2.7-7.7); Platelet Count 338 K/mm3 (150-450); RBC Distribution Width CV 15.6 % (11.6-14.6); RBC Distribution Width SD 46.5 fl (35.1-43.9); Red Blood Count 3.87 M/mm3 (4.6-6.2); White Blood Count 19.8 K/mm3 (4.4-11.0)
--- NOTE | 2024-01-21 22:14 | EX.ED.DYSGE1 ---
HPI History of Present Illness Chief Complaint: Syncope [facility] Medical History CAD (coronary artery disease) Hearing problem HLD (hyperlipidemia) HTN (hypertension) Lung cancer Renal mass Home Medications pantoprazole 40 mg tablet,delayed release 40 mg PO DAILY #30 tabs 10/25/23 [Rx Last Taken 12/18/23] pantoprazole 40 mg tablet,delayed release (Protonix) 40 mg PO DAILY reflux 12/17/23 [History Last Taken Unknown] pembrolizumab IV skin 12/17/23 [History Last Taken 12/03/23] guaifenesin 1 tab PO BID 12/19/23 [History Last Taken 12/18/23] Allergy/AdvReac Type Severity Reaction Status Date / Time No Known Allergies Allergy Verified 01/21/24 20:47 Family History (System 12/24/23 @ 10:07 by Kandi Almodovar) Sister Breast cancer Heart disease Grandfather Heart disease Surgical History H/O heart artery stent History of ankle surgery History of hernia surgery History of lung biopsy Social History (System 12/24/23 @ 10:07 by Kandi Almodovar) household members: spouse current occupational status: retired 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 Smoking Status: Former smoker quit date: 10/08/23 pack-years: 60 Smokeless tobacco user: other Electronic Cigarette Use: not used alcohol intake: former year quit: 2022 substance use type: does not use what type of physical activity do you participate in: none do you feel safe at home: Yes EXAM Physical Exam Const Vital Signs: 01/21/24 20:47 01/21/24 20:47 01/21/24 21:11 Temperature 98.1 F Temperature Source Oral Pulse Rate 78 81 Respiratory Rate 26 H 20 H Respiratory Effort Normal Respiratory Depth Respiratory Pattern Normal Blood Pressure 105/59 L 105/59 L Blood Pressure Mean 74 74 Pulse Ox 94 93 Oxygen Delivery Method Room Air Room Air 01/21/24 21:11 01/21/24 21:46 Temperature Temperature Source Pulse Rate Respiratory Rate Respiratory Effort Normal Respiratory Depth Normal Respiratory Pattern Normal Blood Pressure Blood Pressure Mean Pulse Ox Oxygen Delivery Method Room Air Room Air MDM MDM MDM Narrative Medical decision making narrative: 73-year-old male with known history of lung CA with mets. Brigitte had a syncopal episode fell and hit his head on a hard floor. He has not felt well through most of this day and had a fever at home as high as 101.7. Patient will get a syncope/infectious workup. Treated with IV fluids for possible dehydration. Repeat exam patient is doing well at 10:40 PM. I think he might have a postobstructive pneumonia on the left. It is hard to tell on the x-ray. He is given elevated white count, fever he has had a productive cough of dark mendoza to brown sputum. Will be started on IV Rocephin and Zithromax. Due to his weakness, ongoing syncope I think he would benefit from admission, IV antibiotics and reassessment. I the hospitalist on page. Discussed this all with the patient and family they are comfortable with the plan. History & Record Review Discussion w/independent historian: Patient and Family Additional record(s) reviewed:: Prior inpatient record, Prior outpatient record, Prior ED visit and Prior labs Lab Data Attestation: I reviewed the patient's lab results. Lab results narrative: CBC shows an elevated white count 19.8. H&H of 10.1 and 31.6. He does have a history of anemia and this is consistent with his baseline hemoglobin. Platelets 338. White count is elevated previously they are primarily normal. This could go along with a bacterial infection. Chemistries show a sodium 130. Gap of 8. BUN 31 creatinine 1.49 consistent with dehydration. Glucose 169. Lactic acid 1.4. Troponin normal at 22. CT brain no acute abnormality. Viral studies pending. Hospitalist requesting CT chest be obtained. He will review the results. Labs: Laboratory Results - last 24 hr 01/21/24 21:40 WBC 19.8 H RBC 3.87 L Hgb 10.1 L Hct 31.6 L MCV 81.7 MCH 26.1 L MCHC 32.0 RDW Std Deviation 46.5 H RDW Coeff of Joe 15.6 H Plt Count 338 MPV 8.5 Immature Gran % (Auto) 0.800 Neut % (Auto) 89.0 H Lymph % (Auto) 4.1 L [place] % (Auto) 5.8 Eos % (Auto) 0.0 Baso % (Auto) 0.3 Absolute Neuts (auto) 17.6 H Absolute Lymphs (auto) 0.80 L Nucleated RBC % 0 Sodium 130 L Potassium 4.2 Chloride 96 L Carbon Dioxide 26.0 Anion Gap 8 BUN 31 H Creatinine 1.49 H Estim Creat Clear Calc 44.40 Est GFR (MDRD) Af Amer 59 L Est GFR (MDRD) Non-Af 49 L BUN/Creatinine Ratio 20.8 H Glucose 169 H Lactic Acid 1.4 Calcium 9.1 Troponin I High Sens 22 Radiography Chest X-Ray - ED: 1 View, Read by ED Physician, Heart, Mediastinum, Bony Structures and Chronic Changes Diagnostic Testing: Clinical Impression(s) from Imaging Studies Brain CT 01/21/24 21:18 IMPRESSION: Age-related atrophy with patchy chronic small vessel ischemic changes. No skull fracture or acute intracranial hemorrhage. Electronically Signed: Tyrese Ling MD at 22:08 EDT , Chest x-ray, portable, single view interpreted by myself shows atelectasis of the left lung. Possibly postobstructive collapse. There is a cavitary lesion in the midportion of the left lung which has been seen on prior films there is no history of lung cancer. Cannot rule out a postobstructive pneumonia on the left. There is a lot of opacity to the entire left hemithorax. The right hemithorax is unremarkable. Also a left pleural effusion. Rhythm Strip Rhythm Strip: Sinus Rhythm Rate: 77 Ectopy: None EKG Initial EKG: Attestation: I personally reviewed and interpreted this EKG as follows: Interpretation: Sinus Rhythm and No Acute Injury Pattern Comments: Normal sinus rhythm rate of 77 no acute signs of CO, ischemia or dysrhythmia. Discharge Plan Dx/Rx/DC Orders Clinical Impression: Fever, Syncope, Leukocytosis, Acute dehydration, Fall, Head injury, History of lung cancer, Pneumonia Disposition Disposition: Acute Care [facility]
[2024-01-21 22:19] LABS: Lactic Acid 1.4 mmol/L (0.4-1.9)
[2024-01-21 22:21] LABS: Anion Gap 8 (5-15); BUN 31 mg/dL (7-18); BUN/Creat Ratio 20.8 RATIO (10-20); Calcium,Total 9.1 mg/dL (8.5-10.1); Chloride 96 mmol/L (98-107); Creatinine, Serum 1.49 mg/dL (0.70-1.30); EST Glomerular Filtration Rate 49 mL/min (>60); Est Glom Filt Rate - Afr Amer 59 mL/min (>60); Glucose 169 mg/dL (74-106); Potassium 4.2 mmol/L (3.5-5.1); Sodium Level 130 mmol/L (136-145); Troponin-I HS 22 pg/mL (3.0-78.0)
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
[2024-01-21 22:46] VITALS: BP 116/84; PULSE 65; RESP 15; O2SAT 97
--- NOTE | 2024-01-21 22:47 | CT_ITS ---
EXAM: CT CHEST WITHOUT INTRAVENOUS CONTRAST CLINICAL INDICATION: left lung mnass possibl post obstructive pneumonia . History of lung and kidney cancer, on oral chemotherapy. TECHNIQUE: Helically acquired images were obtained of the chest without intravenous contrast. This CT exam was performed using one or more of the following dose reduction techniques: automated exposure control, adjustment of the mA and/or kV according to patient size, and/or use of iterative reconstruction technique. RADIATION DOSE: Total DLP: 330.43 mGy-cm. COMPARISON: Portable chest radiograph of this date. Chest CT of 12/17/2023. FINDINGS: LUNGS AND PLEURAL SPACES: Findings of pulmonary emphysema are demonstrated. A small stellate nodule within the superior segment of the right upper lobe, abutting the major fissure, has almost completely resolved. Nodular lesion within the medial aspect of the right upper lobe has decreased in size, now measuring 8 mm in diameter as compared with 16 mm on the prior study. Subpleural spiculated lesion previously seen laterally within the right upper lobe has resolved. Second nodule within the medial aspect of the right upper lobe shows subtotal resolution. Nodular lesion within the posterior lateral aspect of the right upper lobe has decreased in size, now measuring 13 mm in maximal diameter as compared with a 18 mm on the prior study. Minimal patchy airspace disease has developed within the superior aspect of the right upper lobe. No right pleural effusion. There is continued atelectasis of the left upper lobe; air bronchograms are seen within this collapsed upper lobe along with central cavitation which has decreased in size; the central cavitation measures up to 4.6 cm in diameter as compared with 5.6 cm on the prior study. Left upper lobe bronchus remains severely narrowed by soft tissue mass effect at the left lung hilum. There is also mild narrowing of the proximal left lower lobe bronchus, unchanged. Moderate patchy airspace disease has developed within the left lower lobe. Peribronchial cuffing is again noted within the left lower lobe. Several of the lower lobe bronchioles now opacified. Subpleural interstitial markings in the left lower lung are thickened. There is a minimal left pleural effusion, much smaller than on the prior study. HEART: Coronary artery calcification is present. There is a trace of pericardial effusion. MEDIASTINUM: Esophagus is unremarkable. No hiatal hernia. Normal size mediastinal lymph nodes are present. A mildly enlarged precarinal lymph node is present measuring 14 mm in short axis diameter, unchanged. There is stable soft tissue mass effect in the subcarinal region partially surrounding calcified nodes. Additional calcified nodes are seen in the right and left lung hilum. THYROID: Unremarkable. No thyroid lesions. BONES/JOINTS: Unremarkable. No lytic osseous lesion. VASCULATURE: Thoracic aorta is mildly calcific and is normal in caliber. No aneurysm or intimal calcification displacement. INTRAPERITONEAL SPACE: Visualized portions of the liver, spleen, pancreas, and adrenal glands are unremarkable. Punctate nonobstructing stone noted within the left renal upper pole collecting system. No pneumoperitoneum is noted. CT/Chest without Contrast IMPRESSION: Chronic left hilar mass effect with continued atelectasis of the left upper lobe; diminishing central cavitation within the atelectatic left upper lobe. Metastatic nodules in the right lung have either decreased in size or resolved since the prior CT. No new metastatic nodules. Decreasing left pleural effusion. Interval development of minimal patchy airspace disease in the right lower lobe. Interval development of moderate consolidation in the left lower lobe with only stable mild narrowing of the proximal left lower lobe bronchus; the developing bilateral lower lobe infiltrates are most likely due to either bilateral pneumonia or aspiration pneumonitis, rather than postobstructive pneumonitis. Fluid and/or mucous plugging opacifies a few of the left lower lobe bronchioles. Electronically Signed: Tyrese Ling MD at 1:41 EDT ,
[2024-01-21] MEDS: Ceftriaxone 1 GM/50 ML BAG IV (23:15)
[2024-01-21 23:20] VITALS: BP 110/63; PULSE 64; RESP 24; TEMP 36.4; O2SAT 96
[2024-01-21 23:22] VITALS: BP 110/63; PULSE 65; RESP 22; TEMP 36.4; O2SAT 95
[2024-01-22] VITALS (12 sets, daily range): BP systolic 101–130; BP diastolic 70–95; PULSE 63–80; RESP 15–18; TEMP 36.3–37; O2SAT 93–100; BMI 20.5
--- NOTE | 2024-01-22 00:01 | CDU_ITS ---
Reason For Study: syncope Rt. Velocities/BP Lt. Velocities/BP Prox CCA 69.2/11.6 cm/sec. Prox CCA 94.9/16.8 cm/sec. Mid CCA 51.3/8.8 cm/sec. Mid CCA 87.2/14.6 cm/sec. Dist CCA 58.9/10.7 cm/sec. Dist CCA 76.2/14.6 cm/sec. Prox ICA 63.0/12.4 cm/sec. Prox ICA 88.8/23.7 cm/sec. Mid ICA 72.9/17.9 cm/sec. Mid ICA 98.6/24.9 cm/sec. Dist ICA 72.9/17.9 cm/sec. Dist ICA 85.1/21.2 cm/sec. Rt. ICA/CCA = 1.4. Lt. ICA/CCA = 1.1. Prox ECA 112.4/8.0 cm/sec. Prox ECA 94.9/4.7 cm/sec. Rt. Vert. 54.2/11.3 cm/sec. Lt. Vert. 60.5/10.2 cm/sec. Right Extracranial There is intimal thickening but no significant atherosclerotic plaque noted in the right common carotid artery. There is heterogeneous, irregular atherosclerotic plaque noted in the right internal carotid artery. There is intimal thickening but no significant atherosclerotic plaque noted in the right external carotid artery. Antegrade flow is noted in the right vertebral artery. Left Extracranial There is homogeneous, smooth atherosclerotic plaque noted in the left common carotid artery. There is heterogeneous, irregular atherosclerotic plaque noted in the left internal carotid artery. There is homogeneous, smooth atherosclerotic plaque noted in the left external carotid artery. Antegrade flow is noted in the left vertebral artery. Procedure Carotid Duplex [id number]. This is a Carotid Duplex examination using B-mode, color flow and specral Doppler. The exam was diagnostic. Exam performed portable in patient room. VL/Carotid Duplex Ultrasound Interpretation Summary Mild (<50%) stenosis right extracranial internal carotid. Mild (<50%) stenosis left extracranial internal carotid. Patent and antegrade vertebrals bilaterally. Ordering Physician: Devon Espino Performed By: Jeremías Pink RVT
[2024-01-22] MEDS: 0.9% Normal Saline (1000mL) 1,000 ML 70 ML IV (01:27)
[2024-01-22] MEDS: Azithromycin 500 MG in Dextrose 5%-Water (250mL Bag) 250 ML 250 MG IV (01:27)
[2024-01-22] MEDS: Vancomycin HCl 1,750 MG in 0.9% Normal Saline (500mL Bag) 500 ML 250 MG IV (01:30)
--- NOTE | 2024-01-22 01:56 | PCM.RX.CS ---
Consult Antibiotic Management Pharmacy has been consulted to manage selected antibiotic: Vancomycin Type of Intervention Type of Consult: New start Labs Labs: Sodium 130 mmol/L (136-145) L 01/21/24 21:40 Potassium 4.2 mmol/L (3.5-5.1) 01/21/24 21:40 Chloride 96 mmol/L (98-107) L 01/21/24 21:40 Carbon Dioxide 26.0 mmol/L (21.0-32.0) 01/21/24 21:40 Anion Gap 8 (5-15) 01/21/24 21:40 BUN 31 mg/dL (7-18) H 01/21/24 21:40 Creatinine 1.49 mg/dL (0.70-1.30) H 01/21/24 21:40 Est GFR (MDRD) Af Amer 59 mL/min (>60) L 01/21/24 21:40 Est GFR (MDRD) Non-Af 49 mL/min (>60) L 01/21/24 21:40 BUN/Creatinine Ratio 20.8 RATIO (10-20) H 01/21/24 21:40 Glucose 169 mg/dL (74-106) H 01/21/24 21:40 Microbiology Microbiology: Microbiology 01/21/24 21:40 Mucosa - Nose SARS-CoV-2, Influenza & RSV (PCR) - Final Dosing Weight Weight used for dosin kg Estimated Creatinine Clearance Estimated Creatinine Clearance: 44.4 Goal Trough Goal Trough: 15-20 mcg/mL Pharmacy Plan for Drug Dosing Pharmacy Plan for Drug Dosing: Pharmacy Service will continue to monitor and adjust dosing as required. Follow-Up Labs Follow-Up Labs: Trough: Vancomycin Date/Time Labs Ordered Labs to be done on [date and time ordered]: 01/22 @ 1469
[2024-01-22] MEDS: Piperacil/Tazobactam 3.375 GM in 0.9% Normal Saline (50mL MB+) 50 ML IV ×3 (03:10→22:09)
--- NOTE | 2024-01-22 06:56 | PCM.PN.HOSP ---
Reason for Visit Reason for Visit: Fever/syncope Subjective Subjective Mr. Hernandez is a 73-year-old white male who presented to the emergency department at [facility] on 01/21/2024 with a chief complaint of fever and syncopal episode. The patient has a known history of metastatic squamous cell lung CA and is on Keytruda. He reported his symptoms began about an hour prior to arrival to the emergency department when he suddenly became dizzy while trying to shave and it resulted in him falling to the floor striking his head. He denied associated loss of consciousness but then noted that he had a fever of approximately 101.7 degrees. During his fall he hit his head above his right eyebrow on the floor and had transient confusion and bladder incontinence but no change in consciousness or seizure activity. He denied any chills, nausea, vomiting, or diarrhea. He did report that he had a cough productive of yellowish-green sputum. Vital signs on presentation showed a temperature of 98.1, heart rate 78, blood pressure 105/59 oxygen saturations were 94% on room air. His CBC on presentation showed a white count of 19.8 with a chronic stable hemoglobin and an 89.0% neutrophilia. Platelet count was normal. His chemistry panel was significant for mild hyponatremia the sodium of 130 and an elevated BUN and serum creatinine at 31 and 1.49 (baseline serum creatinine 1-1.25), his serum glucose was elevated at 169. Troponin was normal his EKG showed normal sinus rhythm and no acute injury pattern or interval abnormality. CT of the brain showed age-related atrophy and patchy chronic small vessel ischemic changes with no acute skull fracture intercranial hemorrhage. Chest x-ray showed cavitary perihilar mass on the left upper lobe consistent with previous and also developing patchy airspace disease in the left lower lung due to pneumonia or postobstructive pneumonitis with an enlarging left pleural effusion. He also had mild worsening left-sided volume loss with increasing lung hyperinflation and increasing mediastinal shift to the left. CT of the chest was then ordered which showed the chronic left hilar mass and diminishing central cavitation, metastatic nodule in the right lung that decreased in size compared to previous CT and no new metastatic nodules as well as a decreasing left pleural effusion but there was an interval development of minimal patchy airspace disease in the right lower lobe as well as moderate consolidation of the left lower lobe and stable mild narrowing of the left proximal lower bronchus consistent with bilateral infiltrates. There is also fluid or mucous plugging opacities in the left lower bronchioles. COVID/flu/RSV was unremarkable. Blood cultures, urine culture, and sputum culture were obtained and a respiratory viral panel was obtained all pending at this time. He was admitted to the medical floor and placed on broad-spectrum antibiotics with Zosyn and vancomycin. Patient states he is feeling better today. He states he is still coughing but coughing less. Does report that his sputum seems to be variable even when he is at home with his baseline cough. His white count has improved however some of that may be dilutional. I did discuss with him that we will probably be able to get him home tomorrow as long as he continues to remain clinically stable and we figure out what antibiotic to discharge him on. Objective Data Objective Data Vital Signs: Vital Signs Temp Pulse Resp BP Pulse Ox O2 Del Method 98.6 F 66 18 123/82 H 98 Room Air 01/22/24 06:34 01/22/24 06:34 01/22/24 06:34 01/22/24 06:34 01/22/24 06:34 01/22/24 06:42 Oxygen Delivery Method Room Air Weight: 65 kg Body Mass Index (BMI) 20.5 Intake & Output: Intake and Output for Last 24 Hours 01/20/24 01/21/24 01/22/24 23:59 23:59 23:59 Intake Total 1000 / 1000 1340 / 1340 Output Total 700 / 700 Balance 1000 / 1000 640 / 640 Lab / Micro Data 01/22/24 06:37 01/21/24 21:40 Labs: Laboratory Results - last 24 hr 01/21/24 21:40: WBC 19.8 H, RBC 3.87 L, Hgb 10.1 L, Hct 31.6 L, MCV 81.7, MCH 26.1 L, MCHC 32.0, RDW Std Deviation 46.5 H, RDW Coeff of Joe 15.6 H, Plt Count 338, MPV 8.5, Immature Gran % (Auto) 0.800, Neut % (Auto) 89.0 H, Lymph % (Auto) 4.1 L, [place] % (Auto) 5.8, Eos % (Auto) 0.0, Baso % (Auto) 0.3, Absolute Neuts (auto) 17.6 H, Absolute Lymphs (auto) 0.80 L, Nucleated RBC % 0, Sodium 130 L, Potassium 4.2, Chloride 96 L, Carbon Dioxide 26.0, Anion Gap 8, BUN 31 H, Creatinine 1.49 H, Estim Creat Clear Calc 44.40, Est GFR (MDRD) Af Amer 59 L, Est GFR (MDRD) Non-Af 49 L, BUN/Creatinine Ratio 20.8 H, Glucose 169 H, Lactic Acid 1.4, Calcium 9.1, Troponin I High Sens 22 Micro: Microbiology 01/21/24 21:40 Mucosa - Nose SARS-CoV-2, Influenza & RSV (PCR) - Final Radiography Diagnostic Testing: Radiology Impression Brain CT 01/21/24 21:18 IMPRESSION: Age-related atrophy with patchy chronic small vessel ischemic changes. No skull fracture or acute intracranial hemorrhage. Electronically Signed: Tyrese Ling MD at 22:08 EDT , Chest X-Ray 01/21/24 21:49 IMPRESSION: 1. Cavitary left perihilar mass and left upper lobe atelectasis is again noted. Developing patchy airspace disease in the left lower lung due to pneumonia or postobstructive pneumonitis. Enlarging left pleural effusion. 2. Mild worsening of left-sided volume loss with increasing right lung hyperinflation and with increasing mediastinal shift to the left. Electronically Signed: Tyrese Ling MD at 22:50 EDT , Chest CT 01/21/24 22:47 IMPRESSION: Chronic left hilar mass effect with continued atelectasis of the left upper lobe; diminishing central cavitation within the atelectatic left upper lobe. Metastatic nodules in the right lung have either decreased in size or resolved since the prior CT. No new metastatic nodules. Decreasing left pleural effusion. Interval development of minimal patchy airspace disease in the right lower lobe. Interval development of moderate consolidation in the left lower lobe with only stable mild narrowing of the proximal left lower lobe bronchus; the developing bilateral lower lobe infiltrates are most likely due to either bilateral pneumonia or aspiration pneumonitis, rather than postobstructive pneumonitis. Fluid and/or mucous plugging opacifies a few of the left lower lobe bronchioles. Electronically Signed: Tyrese Ling MD at 1:41 EDT , Rhythm Strip Rhythm Strip: Sinus Rhythm Rate: 77 Ectopy: None Physical Exam Const alert, oriented x3, no apparent distress and well nourished; Negative for average body habitus or healthy appearing Constitutional Narrative: Thin, older, white male, sitting up in in a chair at the bedside, does appear chronically ill but nontoxic HEENT head/scalp atraumatic, moist oral mucous membranes and oropharynx normal HEENT Narrative: Dentition is poor, Mallampati is 2, no thrush Head and Scalp: normocephalic Resp normal respiratory effort, no retractions, no use of accessory muscles and No clear to auscultation bilaterally Resp Narrative: Diffusely diminished with few crackles at bases bilaterally Auscultation: crackles; Negative for rhonchi or wheezes Cardio regular rate, regular rhythm, S1 normal heart sound, S2 normal heart sound, no murmurs, no rub, no gallops and no clicks GI normal to inspection, nondistended, normoactive bowel sounds, soft to palpation and non-tender GI Narrative: Abdomen is scaphoid Extremity no clubbing, cyanosis or edema Extremity Narrative: Radial pulses are 2+, pedal pulses are 2+ Neuro oriented x3, moves all extremities and no focal motor deficits Speech: speech normal Psych affect normal Psych Narrative: Very pleasant, eye contact is good, patient interacts appropriately Assessment & Plan Assessment/Plan (1) Hyponatremia: (2) Dehydration: (3) Pneumonia: QUALIFIERS: Laterality: left Lung location: unspecified part of lung Pneumonia type: due to unspecified organism Qualified Code(s): J18.9 - Pneumonia, unspecified organism (4) Syncope: QUALIFIERS: Syncope type: unspecified Qualified Code(s): R55 - Syncope and collapse (5) Fever: (6) Leukocytosis: (7) Fall: (8) Head injury: (9) Severe malnutrition: PLAN: Plan Suspected pneumonia/fever/leukocytosis -Patient with cough and sputum production but no hypoxia at this time and CT scan does show infiltrate but this does not appear to be postobstructive on the CT -With the fact that he is immunocompromised with metastatic lung CA and on chemotherapy we will cover him with broad-spectrum antibiotics including vancomycin and Zosyn -Flu/COVID/RSV are negative -Strep pneumo and Legionella antigens are pending -Blood cultures/sputum culture/urine culture pending -Continue Mucinex but increase from 600 to 1200 mg twice daily -Add incentive spirometry -Add Acapella -Continue scheduled DuoNebs -No current need for pulmonary involvement will consult if change in status however patient remains on room air at this time -Patient did evidently transiently need oxygen however is currently 95% on room air Syncope -Suspect related to acute illness -Discontinue echocardiogram as he just had 1 a month ago -Echo on 12/17/2023 showed an EF of 60% with stage I diastolic dysfunction, mild tricuspid, mitral, pulmonary valve insufficiency, mildly enlarged left atrium and a right ventricular systolic pressure of 39 mmHg -Patient did appear to be a bit dehydrated when he presented unfortunately orthostatic vitals were not obtained -Patient was given IV fluids of 1 L bolus the emergency department and then has been on 70 cc hourly since admission -Continue to monitor clinically -Carotid Dopplers ordered and pending -Had syncopal event in early December as well with unremarkable workup Elevated serum creatinine -Baseline appears to be between 1.0 and 1.25 -Serum creatinine on admission was 1.49 -Does not meet criteria for LISA however is not at baseline -Fluids were given -Serum creatinine is improving -Avoid nephrotoxins as able Hyponatremia -At baseline even with his lung cancer he has had normal sodiums -Suspect related to hypovolemic hyponatremia -Fluids have been given -A.m. lab is pending but I suspect this should improve given his fluid administration Severe malnutrition -Likely related to his lung CA -Add supplements -Dietitian consultation HTN/HPL -Patient is currently on no medication for blood pressure or cholesterol History of atrial fibrillation -Diagnosed during admission in early December of this year -Was evaluated by cardiology and not placed on anticoagulation due to intermittent hematuria which had been worsened and related to metastatic squamous cell carcinoma from his lung to his kidney -Rate controlling medication was avoided as he was bradycardic after he converted and cardiology recommended holding rate modulating drugs -Patient remains in sinus rhythm Metastatic lung carcinoma -Patient has mets to lymph nodes and it looks like kidney -Intermittent hematuria related to his metastatic disease -Patient on Keytruda as an outpatient -Continue outpatient follow-up COPD -On no chronic medication -Aerosols as noted above -Continue Mucinex GERD -Continue PPI CAD -Remote stent placement -Patient not currently on any aspirin or Plavix due to hematuria Chronic anemia -Hemoglobin is stable when compared to previous If and continue to monitor History of osteoarthritis -As needed Tylenol DVT prophylaxis -Subcu heparin 5000 units 3 times daily CODE STATUS -CODE STATUS was confirmed with patient is DNR CCA with no intubation Charges/Coding Visit Charges Inpatient E&M: 39076 Subs Hosp L2
[2024-01-22 07:16] LABS: Absolute Lymphocyte Count 1.87 X10^3/uL (0.83-4.51); Absolute Neutrophil Count 8.5 X10^3/uL (2.0-7.7); Basophil# 0.03 X10^3/uL; Basophil% 0.3 % (0-1); Eosinophil# 0.04 X10^3/uL; Eosinophils% 0.3 % (0-5); Hematocrit 27.6 % (40-54); Hemoglobin 8.7 g/dL (13.0-16.5); Lymphocyte # 1.87 X10^3/ul (0.83-4.51); Lymphocyte % 16.2 % (19-41); Mean Corp Hgb Conc 31.5 g/dL (32-36); Mean Corpuscular Hgb 26.3 pg (27.0-32.0); Mean Corpuscular Volume 83.4 fL (80-94); Mean Platelet Vol. 8.9 fl (6.2-12.0); Monocyte# 1.02 X10^3/uL; Monocyte% 8.9 % (0-10); NRBC Flagged by Analyzer 0 % (0-5); Neutrophil % 73.8 % (47-70); Platelet Count 332 K/mm3 (150-450); RBC Distribution Width CV 15.6 % (11.6-14.6); RBC Distribution Width SD 47.8 fl (35.1-43.9); Red Blood Count 3.31 M/mm3 (4.6-6.2); White Blood Count 11.5 K/mm3 (4.4-11.0)
[2024-01-22] MEDS: Ascorbic Acid 500 MG Tablet 1000 MG PO ×2 (08:19→16:36)
[2024-01-22] MEDS: Menthol/Lanolin/Calamine/Znox 113 GM Tube 1 APPLIC TOPICAL ×2 (08:20→22:13)
[2024-01-22] MEDS: Pantoprazole Sodium 40 MG Tablet PO (08:21)
[2024-01-22] MEDS: Cholecalciferol (Vit D3) 125 MCG CAPSULE (5,000 UNITS) PO (08:21)
[2024-01-22] MEDS: guaiFENesin 1,200 MG Tablet 1200 MG PO ×2 (08:30→22:07)
[2024-01-22] MEDS: Zinc Sulfate 50 mg zinc (220 mg) ORAL capsule PO (08:30)
--- NOTE | 2024-01-22 12:20 | CASEMGMT ---
Addendum entered by Emerita Reyes 01/23/24 11:47: Kb e-mails this RN CM that she spoke with the pt daughter today and the initial palliative care appt is scheduled for 02/10 at 1300. DC plan updated. Addendum entered by Emerita Reyes 01/22/24 13:21: Kbsintia Daniels from Palliative e-mails this RN NAGA back stating the referral has been received. Original Note: RN CM Assessment Face to Face with patient for initial transition planning/care coordination assessment. RN CM introduced self and role at [facility], pt voices understanding. Pt is A&Ox4 and is resting comfortably in bed and is calm. Pt daughter (Jenni) at bedside. Care providers, pharmacy, and demographics verified. Admitting dx: PNA PCP: Gillian Specialists: [facility] (Oncology) [facility]acy[facility] Insurance: [employer] Prescription Benefit: Yes LNOK: Cici Hernandez (W), Jenni Jones (KAYCEE) Living Arrangements: Pt lives with his and daughter as well as his GS (Age 5) in a 2 story home with a FFSU and a flat entrance. ADLs/IADLs: Ind Transportation: Daughter, DME: Walk in shower with GB and seat. Walker and cane but does not use. BSC. BP Cuff. Pulse Ox. HHC/SNF: Denies history. Pt?s goal: Home with Palliative Care Plan: 6-click is 19. PT/OT eval pending. Pt refuses the need for HHC or OP therapy at this time. Pt and pt daughter state that they are interested in Palliative Care in regard to the pt comorbidities. Pt daughter states that she tried getting this set up a month ago but nobody reached out to us. This RN CM reassured the pt and the pt daughter that this RN CM will make a referral to the Palliative Care team. Referral sent to the Palliative Care Team at this time via e-mail with Order (from Dr. Maza), Face Sheet, and Screening Tool. Palliative Care referral made for Stage IV lung Ca. CM to follow for safe DC home from [facility]. Kita Reyes RN, CM
[2024-01-22 13:24] LABS: Anion Gap 5 (5-15); BUN 29 mg/dL (7-18); BUN/Creat Ratio 21.6 RATIO (10-20); Calcium,Total 9.2 mg/dL (8.5-10.1); Chloride 104 mmol/L (98-107); Creatinine, Serum 1.34 mg/dL (0.70-1.30); EST Glomerular Filtration Rate 56 mL/min (>60); Est Glom Filt Rate - Afr Amer 67 mL/min (>60); Estimated Creatinine Clearance 45.14 ml/min; Glucose 103 mg/dL (74-106); Potassium 4.1 mmol/L (3.5-5.1); Sodium Level 136 mmol/L (136-145)
[2024-01-22] MEDS: Vancomycin IV 500 MG/100 ML BAG 100 MG IV (13:44)
[2024-01-22] MEDS: 0.9% Saline Lock 10 ML Syringe IV (13:44)
[2024-01-22] MEDS: Heparin Injection (Vial) 5,000 UNIT/ML VIAL 5000 UNIT SC ×2 (14:11→22:08)
[2024-01-23] VITALS (8 sets, daily range): BP systolic 100–122; BP diastolic 68–99; PULSE 71–87; RESP 15–16; TEMP 36.6–37.1; O2SAT 82–98
[2024-01-23] MEDS: Vancomycin IV 500 MG/100 ML BAG 100 MG IV (02:41)
[2024-01-23] MEDS: Heparin Injection (Vial) 5,000 UNIT/ML VIAL 5000 UNIT SC (07:04)
[2024-01-23] MEDS: Piperacil/Tazobactam 3.375 GM in 0.9% Normal Saline (50mL MB+) 50 ML IV (07:04)
[2024-01-23 07:11] LABS: Absolute Lymphocyte Count 1.54 X10^3/uL (0.83-4.51); Absolute Neutrophil Count 8.2 X10^3/uL (2.0-7.7); Basophil# 0.04 X10^3/uL; Basophil% 0.4 % (0-1); Eosinophil# 0.09 X10^3/uL; Eosinophils% 0.8 % (0-5); Hematocrit 27.7 % (40-54); Hemoglobin 8.7 g/dL (13.0-16.5); Lymphocyte # 1.54 X10^3/ul (0.83-4.51); Lymphocyte % 14.4 % (19-41); Mean Corp Hgb Conc 31.4 g/dL (32-36); Mean Corpuscular Volume 82.7 fL (80-94); Mean Platelet Vol. 8.9 fl (6.2-12.0); Monocyte# 0.84 X10^3/uL; Monocyte% 7.8 % (0-10); NRBC Flagged by Analyzer 0 % (0-5); Neutrophil # 8.17 X10^3/uL (2.7-7.7); Neutrophil % 76.1 % (47-70); Platelet Count 329 K/mm3 (150-450); RBC Distribution Width CV 15.6 % (11.6-14.6); RBC Distribution Width SD 47.1 fl (35.1-43.9); Red Blood Count 3.35 M/mm3 (4.6-6.2); White Blood Count 10.7 K/mm3 (4.4-11.0)
[2024-01-23] MEDS: Budesonide Respules 0.5 MG/2 ML AMPUL.NEB. INHALATION (07:12)
[2024-01-23] MEDS: Ipratropium/Albuterol Sulfate 3 ML AMPUL.NEB INHALATION ×2 (07:12→11:01)
[2024-01-23 08:08] LABS: Anion Gap 6 (5-15); BUN 27 mg/dL (7-18); BUN/Creat Ratio 22.3 RATIO (10-20); Calcium,Total 8.9 mg/dL (8.5-10.1); Chloride 105 mmol/L (98-107); Creatinine, Serum 1.21 mg/dL (0.70-1.30); EST Glomerular Filtration Rate 62 mL/min (>60); Est Glom Filt Rate - Afr Amer 76 mL/min (>60); Estimated Creatinine Clearance 49.99 ml/min; Glucose 107 mg/dL (74-106); Potassium 4.1 mmol/L (3.5-5.1); Sodium Level 135 mmol/L (136-145)
[2024-01-23] MEDS: Cholecalciferol (Vit D3) 125 MCG CAPSULE (5,000 UNITS) PO (08:56)
[2024-01-23] MEDS: Ascorbic Acid 500 MG Tablet 1000 MG PO (08:57)
[2024-01-23] MEDS: Zinc Sulfate 50 mg zinc (220 mg) ORAL capsule PO (08:58)
[2024-01-23] MEDS: guaiFENesin 1,200 MG Tablet 1200 MG PO (08:58)
[2024-01-23] MEDS: Pantoprazole Sodium 40 MG Tablet PO (08:58)
--- NOTE | 2024-01-23 11:33 | CASEMGMT ---
ELISABETH NIELSON into pt room, discussed pt needing home oxygen and homegoing instructions for this. Provided pt with a local in network list of DME providers, pt chose [facility]. Pt has a pox at home. Pt has spoken to palliative care and they have an appt set up. Pt denies any further homegoing needs. Portable oxygen tank taken from stock. Referral sent to [facility] via careport at this time.
--- NOTE | 2024-01-23 12:16 | DS.PCM_ITS ---
Providers Date of Admission: 01/21/24 Date of Discharge: 01/23/24 Primary Care Physician: Dr. Belgica French MD Reason For Visit: POSTOBSTRUCTIVE PNEUMONIA, DEHYDRATION & Diagnosis Discharge Diagnosis (1) Hyponatremia: Status: Acute Code(s): E87.1 - Hypo-osmolality and hyponatremia (2) Dehydration: Status: Acute Code(s): E86.0 - Dehydration (3) Pneumonia: Status: Acute Code(s): J18.9 - Pneumonia, unspecified organism Qualifiers: Pneumonia type: due to unspecified organism Laterality: left Lung location: unspecified part of lung Qualified Code(s): J18.9 - Pneumonia, unspecified organism (4) Syncope: Status: Acute Code(s): R55 - Syncope and collapse Qualifiers: Syncope type: unspecified Qualified Code(s): R55 - Syncope and collapse (5) Fever: Status: Acute Code(s): R50.9 - Fever, unspecified (6) Leukocytosis: Status: Acute Code(s): D72.829 - Elevated white blood cell count, unspecified (7) Fall: Status: Acute Code(s): W19.XXXA - Unspecified fall, initial encounter (8) Head injury: Status: Acute Code(s): S09.90XA - Unspecified injury of head, initial encounter (9) Severe malnutrition: Status: Acute Code(s): E43 - Unspecified severe protein-calorie malnutrition Medications at Discharge Home Medications pantoprazole 40 mg tablet,delayed release 40 mg PO DAILY GERD #30 tabs 10/25/23 pembrolizumab IV skin 12/17/23 guaifenesin 1 tab PO BID cough 12/19/23 fluticasone fur. 100 mcg-umeclid 62.5 mcg-vilant 25 mcg inhalat.powder (Trelegy Ellipta) 1 inh inhalation DAILY sob 01/22/24 levofloxacin 750 mg tablet 750 mg PO DAILY #5 tabs 01/23/24 Hospital Course Operations None Procedures - (CT brain/chest x-ray/CT chest/carotid Dopplers) Summary of Care Provided Minutes Spent on Discharge: 40 Hospital Course: Mr. Hernandez is a 73-year-old white male who presented to the emergency department at [facility] on 01/21/2024 with a chief complaint of fever and syncopal episode. The patient has a known history of metastatic squamous cell lung CA and is on Keytruda. He reported his symptoms began about an hour prior to arrival to the emergency department when he suddenly became dizzy while trying to shave and it resulted in him falling to the floor striking his head. He denied associated loss of consciousness but then noted that he had a fever of approximately 101.7 degrees. During his fall he hit his head above his right eyebrow on the floor and had transient confusion and bladder incontinence but no change in consciousness or seizure activity. He denied any chills, nausea, vomiting, or diarrhea. He did report that he had a cough productive of yellowish-green sputum. Vital signs on presentation showed a temperature of 9 8.1, heart rate 78, blood pressure 105/59 oxygen saturations were 94% on room air. His CBC on presentation showed a white count of 19.8 with a chronic stable hemoglobin and an 89.0% neutrophilia. Platelet count was normal. His chemistry panel was significant for mild hyponatremia the sodium of 130 and an elevated BUN and serum creatinine at 31 and 1.49 (baseline serum creatinine 1-1.25), his serum glucose was elevated at 169. Troponin was normal his EKG showed normal sinus rhythm and no acute injury pattern or interval abnormality. CT of the brain showed age-related atrophy and patchy chronic small vessel ischemic changes with no acute skull fracture intercranial hemorrhage. Chest x-ray showed cavitary perihilar mass on the left upper lobe consistent with previous and also developing patchy airspace disease in the left lower lung due to pneumonia or postobstructive pneumonitis with an enlarging left pleural effusion. He also had mild worsening left-sided volume loss with increasing lung hyperinflation and increasing mediastinal shift to the left. CT of the chest was then ordered which showed the chronic left hilar mass and diminishing central cavitation, metastatic nodule in the right lung that decreased in size compared to previous CT and no new metastatic nodules as well as a decreasing left pleural effusion but there was an interval development of minimal patchy airspace disease in the right lower lobe as well as moderate consolidation of the left lower lobe and stable mild narrowing of the left proximal lower bronchus consistent with bilateral infiltrates. There is also fluid or mucous plugging opacities in the left lower bronchioles. COVID/flu/RSV was unrem arkable. Blood cultures, urine culture, and sputum culture were obtained and a respiratory viral panel was obtained all pending at this time. He was admitted to the medical floor and placed on broad-spectrum antibiotics with Zosyn and vancomycin. He did not require any supplemental oxygen during his hospital course while he was at rest however we did an ambulatory pulse ox prior to discharge. His oxygen saturation at rest was 98% on room air however ambulating on room air his oxygen saturation dropped to 82%. He was placed on 2 L nasal cannula with improvement to his oxygen saturation to 98%. I have reviewed the oxygen testing and this patient qualifies for home equipment with portability as the patient is mobile in the home and community. I do suspect that this may be contributing to his intermittent syncopal episodes that he is experiencing with exertion. He has not had these while at rest. He was also found to be dehydrated on presentation. His serum creatinine was up to 1.5 at the time of admission with a baseline of 1-1.25. At the time of discharge his serum creatinine is back down to 1.21. We did discuss ways for him to improve his liquid intake and he did want to discuss possibly starting IV liquid infusions periodically as an outpatient as he states he has trouble getting in enough orally. We did discuss that oral would be a better route for him to pursue if possible. With his syncopal episode he had a extensive workup at his last hospitalization for this however Dopplers were not done of his carotids. We did these at this hospitalization and he showed mild (less than 50%) stenosis in bilateral extracranial internal carotid arteries and patent and antegrade vertebral arteries bilaterally. Family also asked if we could have palliative care referral arranged and this was set up by case management. They should be calling him in the next few days to help start with palliation. His strep pneumo and Legionella antigens were negative. Respiratory viral panel was unremarkable. Sputum culture showed only normal dorothy at this time and his blood cultures are pending at the time of discharge however he was not febrile any further and had no leukocytosis. In fact he was afebrile throughout his hospitalization. We will discharge him with 5 more days of Levaquin that he will take daily at 750 mg. Prescription was sent to his local pharmacy. We have asked him to follow-up as scheduled with Dr. Dobson from oncology and follow-up with his primary care physician within the next week. Discharge diagnoses: Fever-resolved Suspected pneumonia Leukocytosis-resolved Syncope-resolved Hypoxia with exertion-supplemental oxygen provided Dehydration-resolved Elevated serum creatinine-resolved Small left pleural effusion Hyponatremia-stable Severe malnutrition Hypertension Hyperlipidemia History of atrial fibrillation Metastatic lung CA COPD GERD CAD Chronic anemia History of osteoarthritis Physical Exam Const alert, oriented x3, no apparent distress, no limitations and well nourished; Negative for average body habitus or healthy appearing Constitutional Narrative: Thin, older, white male, sitting up in bed, and daughter at bedside, does appear chronically ill but nontoxic General Appearance: cooperative, comfortable, well kempt and well developed Orientation / Consciousness: awake, oriented to person, oriented to place and oriented to time Exam Limitations: no limitations Nutritional Appearance: thin HEENT normocephalic, head/scalp atraumatic, hearing grossly normal bilaterally and moist oral mucous membranes HEENT Narrative: Dentures in place, Mallampati 1, no thrush Eyes PERRL and EOMs intact bilaterally Eyes Narrative: Conjunctiva are mildly pale, no scleral icterus Neck no lymphadenopathy and supple Neck Narrative: Trachea midline, no thyroid enlargement Resp normal respiratory effort, no retractions, no use of accessory muscles and clear to auscultation bilaterally Resp Narrative: Diffusely diminished but clear Auscultation: Negative for crackles, rhonchi or wheezes Cardio regular rate, regular rhythm, S1 normal heart sound, S2 normal heart sound, no murmurs, no rub, no gallops and no clicks GI normal to inspection, nondistended, normoactive bowel sounds, soft to palpation and non-tender GI Narrative: Abdomen is scaphoid Extremity no clubbing, cyanosis or edema Extremity Narrative: Radial pulses are 2+, pedal pulses are 2+ Skin no rashes or lesions noted, no wounds, skin turgor normal and no jaundice Neuro oriented x3, CN's II-XII intact bilaterally, moves all extremities and no focal motor deficits Speech: speech normal Psych affect normal Psych Narrative: Very pleasant, eye contact is good, patient interacts appropriately Medical Records Data Medical Nutrition Assessment Dietitian: Malnutrition Criteria Met Start: 01/22/24 10:17 Freq: Status: Active Protocol: Document 01/22/24 10:17 LO (Rec: 01/22/24 10:17 [id number]) Nutrition Malnutrition Evidence of Malnutrition Exists Yes Malnutrition (severe): Chronic Evidenced By Suboptimal Energy Intake ( Severe),Weight Loss (Severe) Clinical Problem Chronic Disease or Condition Related Malnutrition Etiology severe related to chronic disease and increased energy expenditure Signs/Symptoms as evidenced by 56.7lbs (28%) weight loss in ~9 months and PO intakes <75% of estimated nutrition needs for ~9 months Status Active Problem Recommendation Dietitian Recommendations/Changes RD will liberalize diet to Regular to optimize oral intakes. Continue 120mL EPHP 4x daily with medpass to provide supplemental energy. Will discontinue EPHP TID with medpass. Weight / BMI Weight Weight: 65 kg Body Mass Index (BMI) 20.5 ABG / Lab / Microbiology Data 01/23/24 06:32 01/23/24 06:32 Laboratory: Laboratory Results - last 24 hr 01/22/24 06:37: Sodium 136, Potassium 4.1, Chloride 104, Carbon Dioxide 27.0, Anion Gap 5, BUN 29 H, Creatinine 1.34 H, Estim Creat Clear Calc 45.14, Est GFR (MDRD) Af Amer 67, Est GFR (MDRD) Non-Af 56 L, BUN/Creatinine Ratio 21.6 H, Glucose 103, Calcium 9.2 01/23/24 06:32: WBC 10.7, RBC 3.35 L, Hgb 8.7 L, Hct 27.7 L, MCV 82.7, MCH 26.0 L, MCHC 31.4 L, RDW Std Deviation 47.1 H, RDW Coeff of Joe 15.6 H, Plt Count 329, MPV 8.9, Immature Gran % (Auto) 0.500, Neut % (Auto) 76.1 H, Lymph % (Auto) 14.4 L, [place] % (Auto) 7.8, Eos % (Auto) 0.8, Baso % (Auto) 0.4, Absolute Neuts (auto) 8.2 H, Absolute Lymphs (auto) 1.54, Nucleated RBC % 0, Sodium 135 L, Potassium 4.1, Chloride 105, Carbon Dioxide 24.0, Anion Gap 6, BUN 27 H, Creatinine 1.21, Estim Creat Clear Calc 49.99, Est GFR (MDRD) Af Amer 76, Est GFR (MDRD) Non-Af 62, BUN/Creatinine Ratio 22.3 H, Glucose 107 H, Calcium 8.9 Microbiology: Microbiology 01/22/24 01:35 Sputum, Expectorated/Coughed Gram Stain - Final 01/22/24 01:35 Sputum, Expectorated/Coughed Respiratory Culture - Preliminary Appears to be normal respiratory dorothy. Further studies to follow. 01/22/24 13:13 Urine, Clean Catch Legionella Antigen - Final 01/22/24 13:13 Urine, Clean Catch Streptococcus pneumoniae Antigen (M - Final 01/22/24 01:15 Mucosa - Nasopharyngeal Respiratory Panel (PCR) - Final 01/21/24 21:40 Mucosa - Nose SARS-CoV-2, Influenza & RSV (PCR) - Final Radiography Diagnostic Testing: Radiology Impression Carotid Duplex 01/22/24 00:01 Interpretation Summary Mild (<50%) stenosis right extracranial internal carotid. Mild (<50%) stenosis left extracranial internal carotid. Patent and antegrade vertebrals bilaterally. Ordering Physician: Devon Espino Performed By: Jeremías Pink RVT D/C Instructions Discharge Diet: No restrictions Meaningful Use Info Meaningful Use Diagnoses (Choose all that apply): None applicable Discharge Plan Admission Admit Date/Time: 01/21/24 23:20 Primary Reason for Your Visit: Shortness of breath/syncope Attending Provider: Katrin Maza Primary Care Provider: Belgica French Consulting Providers: Devon Espino Instructions Additional Instructions / Restrictions: 1. You were found to need oxygen while you move around but do not need any oxygen at rest. Please wear your oxygen at 2 L anytime you are moving. This may be contributing to the episodes you have been having. 2. Please try to drink at least 2 L of fluid daily 3. We did make a referral to palliative care and you should be hearing from them soon. Discharge Orders/Prescriptions Prescriptions: New levofloxacin 750 mg tablet 750 mg PO DAILY Qty: 5 0RF Continued pantoprazole 40 mg tablet,delayed release (DR/EC) 40 mg PO DAILY Qty: 30 5RF pembrolizumab [Keytruda] IV Patient Comments: takes every 21 days guaifenesin [Mucinex] 1 tab PO BID Patient Comments: PT AND FAMILY UNSURE OF STRENGTH. Trelegy Ellipta 100-62.5-25 mcg blister with device 1 inh inhalation DAILY Referrals / Follow Up: Belgica French MD [Primary Care Provider] - Within 1 Week Loc Dobson MD [Med Staff - Active Staff] - See Referral Note (As previously scheduled) Disposition Disposition (needs filled in before D/C Order can be placed): Home, Self Care Charges/Coding Visit Charges Inpatient E&M: 19739 Disch Hosp >30min
--- NOTE | 2024-01-23 16:11 | NURSING ---
All documentation by student nurse, Juhi La, reviewed by nursing staff development coordinator, Grecia Shelby RN.
== END 2024-01-23 12:56 | disposition home or self-care (01) | DRG 193 ==
LOC: ED 22:38 → MS3 23:26
PROVIDERS: Admitting Provider Internal Medicine; Emergency Provider Emergency Medicine; PCP Internal Medicine; Visit Provider Internal Medicine
DX: J18.9 Pneumonia, unspecified organism (principal); E43 Unspecified severe protein-calorie malnutrition; C77.9 Secondary and unspecified malignant neoplasm of lymph node, unspecified; C79.00 Secondary malignant neoplasm of unspecified kidney and renal pelvis; J44.0 Chronic obstructive pulmonary disease with (acute) lower respiratory infection; E87.1 Hypo-osmolality and hyponatremia; C34.02 Malignant neoplasm of left main bronchus; J90 Pleural effusion, not elsewhere classified; D63.0 Anemia in neoplastic disease; I10 Essential (primary) hypertension; E78.5 Hyperlipidemia, unspecified; E86.0 Dehydration; I25.10 Atherosclerotic heart disease of native coronary artery without angina pectoris; K21.9 Gastro-esophageal reflux disease without esophagitis; I25.2 Old myocardial infarction; R09.02 Hypoxemia; R55 Syncope and collapse; R94.4 Abnormal results of kidney function studies; Z66 Do not resuscitate; Z95.5 Presence of coronary angioplasty implant and graft; Z68.20 Body mass index [BMI] 20.0-20.9, adult; Z79.899 Other long term (current) drug therapy; Z87.891 Personal history of nicotine dependence
CPT/HCPCS: 36415; 70450; 71045; 71250; 80048; 83605; 84484; 85025; 87040; 87070; 87077; 87086; 87088; 87186; 87205; 87449; 87631; 87633; 93005; 93880; 94640; 97802; 99285; J7030; J7040; J7050; A4216

== ENCOUNTER 2024-04-14 10:48 | Inpatient (IN) | payer MEDICARE, SELFPAY ==
[2024-04-14] VITALS (19 sets, daily range): BP systolic 86–155; BP diastolic 46–81; PULSE 74–89; RESP 16–29; TEMP 36.7–37.2; O2SAT 93–100; BMI 23.6; BMI 23.7
--- NOTE | 2024-04-14 11:21 | EKG12_ITS ---
Test Reason : SOB Blood Pressure : / mmHG Vent. Rate : 078 BPM Atrial Rate : 078 BPM P-R Int : 144 ms QRS Dur : 102 ms QT Int : 374 ms P-R-T Axes : 059 018 076 degrees QTc Int : 426 ms Normal sinus rhythm Normal ECG Confirmed by Bhavik Paul ([id number]), editor news SONJA GARNER ([id number]) on 04/18/2024 9:06:14 AM Referred By: Confirmed By:Bhavik Paul
[2024-04-14 11:45] LABS: BNP,B-Type NATRIURETIC PEPTIDE 89.4 pg/mL (0-100)
--- NOTE | 2024-04-14 11:47 | CT_ITS ---
STUDY: CTA CHEST REASON FOR EXAM: Male, 73 years old. Shortness of breath, concern for PE -- Outpatient labs today Cr 1.25, GFR 61 History of lung and kidney cancer, on oral chemotherapy. RADIATION DOSAGE (If Supplied By Facility): CTDIvol = ( 12.22 ) mGy, DLP = ( 378.12 ) mGycm TECHNIQUE: The examination was performed with the intravenous administration of IV 100mL Isovue-370. Post-processing of the angiographic images was performed, with multiplanar reformation and 3D reconstruction. Individualized dose optimization techniques were used for this CT. COMPARISON: Chest x-ray dated January 22, 2024. CT of the chest dated January 22, 2024 FINDINGS: * Redemonstration of known consolidative mass which appears necrotic and has a loculated small effusion and is subpleural border and extends into the left hilum. Moderate atelectasis is associated with this consolidative mass which spans the entire superior and inferior aspect of the left upper lobe maximally measuring 14.50 x 5.86 cm. * Redemonstration of partial obstruction of the secondary bronchioles in the termination/branching point of the left mainstem bronchus, and it supplies the superior segment of the left lower lobe. * Redemonstration of multiple calcified nodes in the bilateral hilar regions * Diffuse nodularity and calcified nodules of the anterior mediastinum unchanged from the prior study * Redemonstration of mild to moderate patchy consolidation in spiculated nodules in the middle to inferior aspect of the left lower lobe with a small pleural effusion. The effusion has increased in size since the prior study. * Moderate cystic emphysematous changes are present * Chronic interstitial fibrosis and atelectasis is present in the right lower lobe in the base. No visualized right lung masses or metastatic nodules. * There is absence of the peripheral branches arising from the posterior distal aspect of the left main pulmonary artery either due to surgical resection/sacrifice or nondevelopment Normal enhancement of the main pulmonary artery and right and left pulmonary arteries. Normal enhancement of the bilateral peripheral pulmonary arteries. There is no demonstrated pulmonary embolism. There is atherosclerotic calcification of the aortic arch with tortuosity. There is no demonstrated aortic dissection. Normal heart and pericardium. There are calcifications of the coronary arteries. Normal visualized trachea and bronchi. The lungs are well expanded. Normal chest wall structures. There are degenerative changes of thoracic spine. Unremarkable visualized upper abdomen. Several punctate calcifications are seen in the upper pole of the left kidney. CT/CTA Chest W/WO Contrast IMPRESSION: 1. No demonstrated pulmonary embolism or arterial dissection. 2. Chronic consolidative mass in the medial aspect of the left upper lobe with areas of necrosis and calcification in the small peripheral loculated effusion. This can be evaluated with PET/CT to determine if any viable neoplasm is present in this tissue 3. Spiculated malignant nodules and secondary obstructive consolidation/pneumonia in the left lower lobe Electronically Signed: Jayson Chris MD at 13:25 EDT ,
[2024-04-14 11:49] LABS: Troponin-I HS 7 pg/mL (3.0-78.0)
[2024-04-14] MEDS: Ipratropium/Albuterol Sulfate 3 ML AMPUL.NEB INHALATION ×4 (11:57→22:54)
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
--- NOTE | 2024-04-14 13:21 | ED.RN ---
pts o2 sat decreases to 70% while ambulating. pt did not realize his o2 tank was empty. pt reconnected to oxygen and o2 sats increase to 98% on 3L. Dr. Sheth notified
[2024-04-14] MEDS: 0.9% Normal Saline (1000mL) 1,000 ML 999 ML IV (13:47)
[2024-04-14] MEDS: MethylPREDNISolone 125 MG/2 ML Vial 60 MG IV (15:26)
[2024-04-14] MEDS: Doxycycline 100 MG in Dextrose 5%-Water (250mL Bag) 250 ML 250 MG IV (15:27)
[2024-04-14] MEDS: Acetaminophen 325 MG Tablet 650 MG PO ×2 (15:30→22:21)
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
[2024-04-14] MEDS: Budesonide Respules 0.5 MG/2 ML AMPUL.NEB. INHALATION (19:16)
[2024-04-14] MEDS: MELATONIN 3 MG TABLET PO (22:21)
[2024-04-14] MEDS: Piperacil/Tazobactam 3.375 GM in 0.9% Normal Saline (50mL MB+) 50 ML IV (22:21)
[2024-04-14] MEDS: guaiFENesin 1,200 MG Tablet 1200 MG PO (22:21)
[2024-04-14] MEDS: 0.9% Saline Lock 10 ML Syringe IV (22:23)
[2024-04-15] VITALS (11 sets, daily range): BP systolic 111–122; BP diastolic 62–73; PULSE 82–98; RESP 16–20; TEMP 36.3–36.9; O2SAT 94–100
[2024-04-15] MEDS: Ipratropium/Albuterol Sulfate 3 ML AMPUL.NEB INHALATION ×5 (03:30→19:27)
[2024-04-15] MEDS: Piperacil/Tazobactam 3.375 GM in 0.9% Normal Saline (50mL MB+) 50 ML IV ×3 (05:38→21:10)
[2024-04-15] MEDS: 0.9% Saline Lock 10 ML Syringe IV (05:39)
--- NOTE | 2024-04-15 07:12 | PN.HOSP_ITS ---
Reason for Visit Reason for Visit: Hypoxia Subjective Subjective Patient is a 73-year-old male who presented to the emergency department [facility] on 04/14/2024 with hypoxia. 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 Dobson and Dr. Dia as an outpatient. He presented from the infusion center due to hypoxia. At baseline he wears 2 L of oxygen with ambulation but was noted to need 3 L at rest. Patient reported he was feeling okay without any complaints but did state that he had an increased cough with yellow stuff that he has been able to bring up and indicated that his oxygen had been a bit lower for the past day or 2. He indicated he was otherwise feeling well. Vital signs on presentation showed a temperature of 98.3, heart rate 87, respiratory rate 22, blood pressure 119/70, pulse ox was 98% on 3 L nasal cannula. The case was discussed with Dr. Dia by the emergency department and no significant change was noted from his previous CT in February 2024 other than possibly increased pleural effusion with Dr. Dia was concerned about his increased oxygen demand and requested admission. CBC on presentation showed a normal white count but he did have a significant left shift with an 88.9% neutrophilia. He had a chronic stable anemia as well. CTA of the chest was performed and showed no pulmonary embolism or dissection but did show chronic consolidative mass in the medial aspect of the left upper lobe as well as areas of necrosis and calcification in this mall peripheral loculated effusion as well as spiculated malignant nodules and secondary obstructive consolidation/pneumonia in the left lower lobe. Respiratory viral panel and COVID were unremarkable. Strep pneumo and Legionella antigens were unremarkable as well. He was admitted to the medical floor and placed on Zosyn and azithromycin. With Legionella negativity will discontinue azithromycin today and continue Zosyn. Sputum cultures ordered and still pending. Family states that in addition to his oxygen levels being low he had been a little bit shaky at home that was new in the last couple days. Family reports that while we did discharge him with oxygen during exertional activities at his last hospitalization in January he had no longer been using it and had seen pulmonary medicine they told him he did not need any further. He had been fairly active but the recent chemotherapy has had has left him with increased fatigue and decreased tolerance to activity. Objective Data Objective Data Vital Signs: Vital Signs Temp Pulse Resp BP Pulse Ox O2 Del Method O2 Flow Rate 97.8 F 82 18 119/71 96 Nasal Cannula 2 04/15/24 03:44 04/15/24 03:44 04/15/24 03:44 04/15/24 03:44 04/15/24 03:44 04/15/24 03:45 04/15/24 03:44 Oxygen Flow Rate (L/min) 2 Oxygen Delivery Method Nasal Cannula Weight: 75 kg Body Mass Index (BMI) 23.7 Intake & Output: Intake and Output for Last 24 Hours 04/13/24 04/14/24 04/15/24 23:59 23:59 23:59 Intake Total 1760 / 1760 50 / 50 Balance 1760 / 1760 50 / 50 Lab / Micro Data 04/15/24 06:28 04/15/24 06:28 Labs: Laboratory Results - last 24 hr 04/14/24 11:21: Troponin I High Sens 7, B-Natriuretic Peptide 89.4 Micro: Microbiology 04/14/24 17:34 Mucosa - Nasopharyngeal Respiratory Panel (PCR) - Final 04/14/24 17:34 Mucosa - Nasopharyngeal SARS-CoV-2, Influenza & RSV (PCR) - Final 04/14/24 Unknown Urine, Random Legionella Antigen - Final 04/14/24 Unknown Urine, Random Streptococcus pneumoniae Antigen (M - Final Radiography Diagnostic Testing: Radiology Impression Chest CTA 04/14/24 11:47 IMPRESSION: 1. No demonstrated pulmonary embolism or arterial dissection. 2. Chronic consolidative mass in the medial aspect of the left upper lobe with areas of necrosis and calcification in the small peripheral loculated effusion. This can be evaluated with PET/CT to determine if any viable neoplasm is present in this tissue 3. Spiculated malignant nodules and secondary obstructive consolidation/pneumonia in the left lower lobe Electronically Signed: Jayson Chris MD at 13:25 EDT , Rhythm Strip Rhythm Strip: Sinus Rhythm Rate: 78 Ectopy: None Physical Exam Const alert, oriented x3, no apparent distress and average body habitus; Negative for healthy appearing or well nourished Constitutional Narrative: Older, white male, thin, sitting up on the edge of the bed facing the window, family at bedside, appears comfortable, does not appear toxic, currently on 2 L nasal cannula HEENT head/scalp atraumatic and moist oral mucous membranes HEENT Narrative: Mallampati 2, no thrush Head and Scalp: normocephalic Resp normal respiratory effort, no retractions, no use of accessory muscles and No clear to auscultation bilaterally Resp Narrative: Markedly diminished diffusely with few adventitious sounds at the left lower base, no signs of respiratory distress Auscultation: rhonchi; Negative for rales or wheezes Cardio regular rate, regular rhythm, S1 normal heart sound, S2 normal heart sound, no murmurs, no rub, no gallops and no clicks GI normal to inspection, nondistended, normoactive bowel sounds, soft to palpation and non-tender GI Narrative: Scaphoid abdomen Extremity no clubbing, cyanosis or edema Extremity Narrative: Decreased lean muscle mass Neuro oriented x3, moves all extremities and no focal motor deficits Speech: speech normal Psych affect normal Psych Narrative: Very pleasant, interacts appropriately, jovial at times Assessment & Plan Assessment/Plan (1) COPD exacerbation: (2) Hypoxia: (3) Severe malnutrition: (4) Hyponatremia: (5) Elevated serum creatinine: (6) Postobstructive pneumonia: PLAN: Plan Acute proximal secondary to suspected postobstructive pneumonia -Patient with cough and sputum production as well as hypoxia and CT shows left lower lobe postobstructive infiltrate -With the fact that he is immunocompromised with metastatic lung CA and on chemotherapy we will cover him with broad-spectrum antibiotics including Zosyn for now -Check MRSA PCR and if positive will add Zyvox -Flu/COVID/RSV are negative -Strep pneumo and Legionella antigens are negative -Sputum culture has been ordered but not yet collected due to lack of production -Continue Mucinex 1200 mg p.o. twice daily -Continue incentive spirometry -Add Acapella -Continue scheduled DuoNebs -No current need for pulmonary involvement will consult if change in status however patient remains on room air at this time -Oxygen saturations are currently in the mid upper 90s on 2 L nasal cannula at rest -Has not been requiring any supplemental oxygen as of recently -Will need ambulatory pulse ox prior to discharge Elevated serum creatinine on CKD stage II -Baseline appears to be between 1.0 and 1.25 -Serum creatinine on admission was 1.49 and 1.52 today -Will give some gentle hydration with 1 L LR and recheck lab in a.m. Hyponatremia -At baseline even with his lung cancer he has had normal sodiums -Suspect related to hypovolemic hyponatremia Severe malnutrition -Likely related to his lung CA -Add supplements -Dietitian consultation History of atrial fibrillation -Diagnosed during admission in early December of this year -Was evaluated by cardiology and not placed on anticoagulation due to intermittent hematuria which had been worsened and related to metastatic squamous cell carcinoma from his lung to his kidney -Rate controlling medication was avoided as he was bradycardic after he converted and cardiology recommended holding rate modulating drugs -Currently in sinus rhythm -Monitor Metastatic lung carcinoma -Patient has mets to lymph nodes and it looks like kidney -Intermittent hematuria related to his metastatic disease -Patient on Keytruda as an outpatient -Follows with oncology-Dr. Dia/Bronson COPD -Hold home Trelegy Ellipta -Continue home budesonide -Aerosols as noted above -Continue Mucinex GERD -Continue PPI CAD -Remote stent placement -Patient not currently on any aspirin or Plavix due to hematuria Chronic anemia -Hemoglobin is stable when compared to previous -continue to monitor History of osteoarthritis -As needed Tylenol DVT prophylaxis -Enoxaparin 40 mg daily CODE STATUS -DNR CCA with no intubation Charges/Coding Visit Charges Inpatient E&M: 75638 Subs Hosp L2
[2024-04-15 07:22] LABS: Absolute Lymphocyte Count 0.28 X10^3/uL (0.83-4.51); Absolute Neutrophil Count 7.2 X10^3/uL (2.0-7.7); Basophil# 0.01 X10^3/uL; Basophil% 0.1 % (0-1); Hematocrit 25.3 % (40-54); Hemoglobin 8.4 g/dL (13.0-16.5); Lymphocyte # 0.28 X10^3/ul (0.83-4.51); Lymphocyte % 3.5 % (19-41); Mean Corp Hgb Conc 33.2 g/dL (32-36); Mean Corpuscular Hgb 29.1 pg (27.0-32.0); Mean Corpuscular Volume 87.5 fL (80-94); Mean Platelet Vol. 8.4 fl (6.2-12.0); Monocyte# 0.57 X10^3/uL; NRBC Flagged by Analyzer 0 % (0-5); Neutrophil # 7.19 X10^3/uL (2.7-7.7); Neutrophil % 88.9 % (47-70); POSITIVE DIFFERENTIAL YES; POSITIVE MORPHOLOGY YES; Platelet Count 292 K/mm3 (150-450); RBC Distribution Width CV 20.5 % (11.6-14.6); RBC Distribution Width SD 64.7 fl (35.1-43.9); Red Blood Count 2.89 M/mm3 (4.6-6.2); White Blood Count 8.1 K/mm3 (4.4-11.0)
[2024-04-15 07:24] LABS: Differential Indicated SCAN CRITERIA MET
[2024-04-15] MEDS: Budesonide Respules 0.5 MG/2 ML AMPUL.NEB. INHALATION ×2 (07:24→19:26)
[2024-04-15 07:37] LABS: ALB/GLOB Ratio 0.7 RATIO (0.9-2.4); AST(SGOT) 13 U/L (15-37); Alanine Aminotransfer ALT/SGPT 30 U/L (16-61); Albumin, Serum 2.7 g/dL (3.2-5.0); Alkaline Phosphatase 138 U/L (45-117); Anion Gap 8 (5-15); BUN 31 mg/dL (7-18); BUN/Creat Ratio 20.4 RATIO (10-20); Calcium,Total 9.1 mg/dL (8.5-10.1); Chloride 104 mmol/L (98-107); Creatinine, Serum 1.52 mg/dL (0.70-1.30); EST Glomerular Filtration Rate 48 mL/min (>60); Est Glom Filt Rate - Afr Amer 58 mL/min (>60); Estimated Creatinine Clearance 44.69 ml/min; Glucose 170 mg/dL (74-106); Magnesium 2.1 mg/dL (1.6-2.6); Phosphorus 3.4 mg/dL (2.5-4.9); Potassium 4.3 mmol/L (3.5-5.1); Protein, Total 6.7 g/dL (6.4-8.2); Sodium Level 134 mmol/L (136-145)
[2024-04-15 07:42] LABS: Anisocytosis 2+
[2024-04-15] MEDS: guaiFENesin 1,200 MG Tablet 1200 MG PO ×2 (07:49→21:10)
[2024-04-15] MEDS: Enoxaparin 40 MG/0.4 ML Syringe SC (07:49)
[2024-04-15] MEDS: Pantoprazole Sodium 40 MG Tablet PO (07:49)
--- NOTE | 2024-04-15 10:15 | CASEMGMT ---
ELISABETH NIELSON Assessment Face to Face with patient for initial transition planning/care coordination assessment. ELISABETH NIELSON introduced self and role at [facility], pt voices understanding. Pt is A&Ox4 and is resting comfortably in bed and is calm. Pt daughter and at bedside. Care providers, pharmacy, and demographics verified. Admitting dx: Hypoxia PCP: Gillian Specialists: Bronson (Oncology). Jairo Levin (Pulm) Preferred Pharmacy: [facility] Insurance: [employer] [facility] Prescription Benefit: Yes LNOK: Cici Hernandez (W), Jenni Jones (KAYCEE) Living Arrangements: Pt lives with his and daughter as well as his GS (Age 5) in a single story home with a loft and a FFSU with a flat entrance. ADLs/IADLs: Ind with ADLs, mod ind with IADLs (Family helps) Transportation: Daughter, DME: Walk in shower with GB and seat. Cane but does not use. BSC. BP Cuff. Pulse Ox. Home oxygen through [employer]. Pt states that he has not needed to use for the last month or so. Pt states that he is unsure of his current O2 order. Email sent to [employer] to verify this. Pt reports that he has a concentrator and portable tanks. Pt family states that they will bring in a portable tank tomorrow. HHC/SNF: Denies history or needs. Pt has a history with [facility]. Pt states that they came to his home one time and that he does not need their services any longer. Pt states that he is able to call them anytime if needs arise. Pt?s goal: Home with family support Plan: 6-click is 20. PT/OT eval pending. Pt refuses the need for HHC or OP therapy at this time. Pt states that he feels safe discharging home with his family once he is medically ready. CM to follow for increased oxygen demands. CM to follow for safe DC from [facility]. Kita Reyes RN, CM
[2024-04-15] MEDS: Lactated Ringers 1,000 ML 100 ML IV (11:54)
[2024-04-15 12:18] LABS: M R Staph aureus DNA By PCR Negative (Negative); Probe Check PASS; Specimen Processing Control PASS
--- NOTE | 2024-04-15 15:39 | CHAPLAIN ---
Type of Pastoral Visit _x__ Initial Visit ___ Follow-up Visit ___ On-call Visit ___ General Patient Visit ___ Spiritual Assessment ___ Family Conference ___ Bereavement ___ Rapid Response ___ Code Blue ___ Other (describe below) Pastoral Care Referral From _x__ Patient ___ Family ___ Nurse ___ Physician ___ Electrical Accessories Assembler ___ Food Counselor ___ Other (describe below) Sacrament/Intervention _x__ Active listening ___ Anointing ___ Gnosticist ___ Bereavement ___ Communion _x__ Leona exploration ___ _x__ Life review _x__ Prayer ___ Reconciliation ___ Sacrament of Sick _x__ Supportive presence ___ Wedding ___ Other (describe below) Pastoral Comments at first the patient appeared cautious about having a visit from the bicycle messenger but once asked about his journey with cancer and how he was coping, this pt opened up about what mattered in his life, how he had lived his life, and bits of his heritage of leona which he abandoned over time; pt spoke openly about probably having two months to live as the doctors explained it; pt was very talkative about his life and experiences and what he valued; this gave openings to ask about his feelings and what helped him, including leona issues; pt was given opportunity for a prayer and he accepted it willingly; pt expressed thanks for the visit which turned into a long conversation
[2024-04-15] MEDS: Ensure Plus High Protein 120 ML LIQUID PO (16:42)
[2024-04-16 02:00] VITALS: BP 103/60; PULSE 81; RESP 16; TEMP 37.1; O2SAT 94
[2024-04-16] MEDS: Piperacil/Tazobactam 3.375 GM in 0.9% Normal Saline (50mL MB+) 50 ML IV (05:40)
[2024-04-16 05:58] LABS: Absolute Lymphocyte Count 0.91 X10^3/uL (0.83-4.51); Absolute Neutrophil Count 5.7 X10^3/uL (2.0-7.7); Basophil# 0.01 X10^3/uL; Basophil% 0.1 % (0-1); Eosinophil# 0.01 X10^3/uL; Eosinophils% 0.1 % (0-5); Hematocrit 21.9 % (40-54); Hemoglobin 7.3 g/dL (13.0-16.5); Lymphocyte # 0.91 X10^3/ul (0.83-4.51); Lymphocyte % 13.3 % (19-41); Mean Corp Hgb Conc 33.3 g/dL (32-36); Mean Corpuscular Hgb 29.8 pg (27.0-32.0); Mean Corpuscular Volume 89.4 fL (80-94); Mean Platelet Vol. 8.4 fl (6.2-12.0); Monocyte# 0.23 X10^3/uL; Monocyte% 3.4 % (0-10); NRBC Flagged by Analyzer 0 % (0-5); Neutrophil # 5.67 X10^3/uL (2.7-7.7); Neutrophil % 82.8 % (47-70); POSITIVE MORPHOLOGY YES; Platelet Count 215 K/mm3 (150-450); RBC Distribution Width CV 21.4 % (11.6-14.6); RBC Distribution Width SD 66.9 fl (35.1-43.9); Red Blood Count 2.45 M/mm3 (4.6-6.2); White Blood Count 6.9 K/mm3 (4.4-11.0)
[2024-04-16] MEDS: Budesonide Respules 0.5 MG/2 ML AMPUL.NEB. INHALATION (06:38)
[2024-04-16 06:39] VITALS: PULSE 72; RESP 18; O2SAT 98
[2024-04-16] MEDS: Ipratropium/Albuterol Sulfate 3 ML AMPUL.NEB INHALATION (06:39)
[2024-04-16 06:55] LABS: Differential Indicated SCAN CRITERIA MET
[2024-04-16 06:57] LABS: Anion Gap 6 (5-15); BUN 32 mg/dL (7-18); BUN/Creat Ratio 21.3 RATIO (10-20); Calcium,Total 8.9 mg/dL (8.5-10.1); Chloride 107 mmol/L (98-107); EST Glomerular Filtration Rate 49 mL/min (>60); Est Glom Filt Rate - Afr Amer 59 mL/min (>60); Estimated Creatinine Clearance 45.29 ml/min; Glucose 91 mg/dL (74-106); Potassium 4.3 mmol/L (3.5-5.1); Sodium Level 137 mmol/L (136-145)
[2024-04-16] MEDS: Enoxaparin 40 MG/0.4 ML Syringe SC (08:26)
[2024-04-16] MEDS: guaiFENesin 1,200 MG Tablet 1200 MG PO (08:26)
[2024-04-16] MEDS: Pantoprazole Sodium 40 MG Tablet PO (08:26)
[2024-04-16] MEDS: Acetaminophen 325 MG Tablet 650 MG PO (08:29)
[2024-04-16] MEDS: Ensure Plus High Protein 120 ML LIQUID PO (08:32)
[2024-04-16 08:42] VITALS: O2SAT 91; O2SAT 95
[2024-04-16 08:43] VITALS: BP 97/65; PULSE 90; RESP 16; TEMP 36.6; O2SAT 95
[2024-04-16 08:50] LABS: Anisocytosis 1+
--- NOTE | 2024-04-16 09:45 | DS.PCM_ITS ---
Providers Date of Admission: 04/14/24 Primary Care Physician: Dr. Belgica French MD Reason For Visit: HYPOXIA Diagnosis Discharge Diagnosis (1) COPD exacerbation: Status: Chronic Code(s): J44.1 - Chronic obstructive pulmonary disease with (acute) exacerbation (2) Hypoxia: Status: Acute Code(s): R09.02 - Hypoxemia (3) Severe malnutrition: Status: Acute Code(s): E43 - Unspecified severe protein-calorie malnutrition (4) Hyponatremia: Status: Acute Code(s): E87.1 - Hypo-osmolality and hyponatremia (5) Elevated serum creatinine: Status: Acute Code(s): R79.89 - Other specified abnormal findings of blood chemistry (6) Postobstructive pneumonia: Status: Acute Code(s): J18.9 - Pneumonia, unspecified organism Plan Acute proximal secondary to suspected postobstructive pneumonia -Patient with cough and sputum production as well as hypoxia and CT shows left lower lobe postobstructive infiltrate -With the fact that he is immunocompromised with metastatic lung CA and on chemotherapy we will cover him with broad-spectrum antibiotics including Zosyn for now -Check MRSA PCR and if positive will add Zyvox -Flu/COVID/RSV are negative -Strep pneumo and Legionella antigens are negative -Sputum culture has been ordered but not yet collected due to lack of production -Continue Mucinex 1200 mg p.o. twice daily -Continue incentive spirometry -Add Acapella -Continue scheduled DuoNebs -No current need for pulmonary involvement will consult if change in status however patient remains on room air at this time -Oxygen saturations are currently in the mid upper 90s on 2 L nasal cannula at rest -Has not been requiring any supplemental oxygen as of recently -Will need ambulatory pulse ox prior to discharge Elevated serum creatinine on CKD stage II -Baseline appears to be between 1.0 and 1.25 -Serum creatinine on admission was 1.49 and 1.52 today -Will give some gentle hydration with 1 L LR and recheck lab in a.m. Hyponatremia -At baseline even with his lung cancer he has had normal sodiums -Suspect related to hypovolemic hyponatremia Severe malnutrition -Likely related to his lung CA -Add supplements -Dietitian consultation History of atrial fibrillation -Diagnosed during admission in early December of this year -Was evaluated by cardiology and not placed on anticoagulation due to intermittent hematuria which had been worsened and related to metastatic squamous cell carcinoma from his lung to his kidney -Rate controlling medication was avoided as he was bradycardic after he converted and cardiology recommended holding rate modulating drugs -Currently in sinus rhythm -Monitor Metastatic lung carcinoma -Patient has mets to lymph nodes and it looks like kidney -Intermittent hematuria related to his metastatic disease -Patient on Keytruda as an outpatient -Follows with oncology-Dr. Dia/Bronson COPD -Hold home Trelegy Ellipta -Continue home budesonide -Aerosols as noted above -Continue Mucinex GERD -Continue PPI CAD -Remote stent placement -Patient not currently on any aspirin or Plavix due to hematuria Chronic anemia -Hemoglobin is stable when compared to previous -continue to monitor History of osteoarthritis -As needed Tylenol DVT prophylaxis -Enoxaparin 40 mg daily CODE STATUS -DNR CCA with no intubation Medications at Discharge Home Medications pantoprazole 40 mg tablet,delayed release 40 mg PO DAILY GERD #30 tabs 10/25/23 pembrolizumab IV Q21D LUNG CANCER 12/17/23 fluticasone fur. 100 mcg-umeclid 62.5 mcg-vilant 25 mcg inhalat.powder (Trelegy Ellipta) 1 inh inhalation DAILY SHORTNESS OF BREATH 01/22/24 guaifenesin 600 mg tablet, extended release 12 hr (Mucus Relief ER) 600 mg PO BID COUGH 04/14/24 levofloxacin 750 mg tablet 750 mg PO .Q48 #5 tabs 04/16/24 Weight / BMI Weight Weight: 75 kg Body Mass Index (BMI) 23.7 ABG / Lab / Microbiology Data 04/16/24 05:11 04/16/24 05:11 Laboratory: Laboratory Results - last 24 hr 04/15/24 09:25: MRSA (PCR) Negative 04/16/24 05:11: WBC 6.9, RBC 2.45 L, Hgb 7.3 L, Hct 21.9 L, MCV 89.4, MCH 29.8, MCHC 33.3, RDW Std Deviation 66.9 H, RDW Coeff of Joe 21.4 H, Plt Count 215, MPV 8.4, Immature Gran % (Auto) 0.300, Neut % (Auto) 82.8 H, Lymph % (Auto) 13.3 L, Kern % (Auto) 3.4, Eos % (Auto) 0.1, Baso % (Auto) 0.1, Absolute Neuts (auto) 5.7, Absolute Lymphs (auto) 0.91, Nucleated RBC % 0, Anisocytosis 1+, Sodium 137, Potassium 4.3, Chloride 107, Carbon Dioxide 24.0, Anion Gap 6, BUN 32 H, C reatinine 1.50 H, Estim Creat Clear Calc 45.29, Est GFR (MDRD) Af Amer 59 L, Est GFR (MDRD) Non-Af 49 L, BUN/Creatinine Ratio 21.3 H, Glucose 91, Calcium 8.9 Microbiology: Microbiology 04/14/24 17:34 Mucosa - Nasopharyngeal Respiratory Panel (PCR) - Final 04/14/24 17:34 Mucosa - Nasopharyngeal SARS-CoV-2, Influenza & RSV (PCR) - Final 04/14/24 Unknown Urine, Random Legionella Antigen - Final 04/14/24 Unknown Urine, Random Streptococcus pneumoniae Antigen (M - Final D/C Instructions Discharge Diet: No restrictions Discharge Activity: Return to Normal Activity Meaningful Use Info Meaningful Use Meaningful Use Diagnoses (Choose all that apply): None applicable Ischemic Stroke Statin Dosing Therapy Reference: STATIN DOSE THERAPY REFERENCE: * Patients > 75 years receive moderate or high dose statin therapy. * Patients 75 years or YOUNGER should receive HIGH intensity statin dose unless contraindicated. You will be required to document reason for non-treatment if statin daily dose does not meet guidelines. HIGH DOSE STATIN THERAPY DAILY Atorvastatin > than or = to 40 mg Rosuvastatin > than or = to 20 mg Amlodipine + Atorvastatin > than or = to 2.5/40 mg Ezetimibe + Simvastatin 10/80 mg Simvastatin 80mg Discharge Plan Admission Admit Date/Time: 04/14/24 16:23 Primary Reason for Your Visit: Hypoxia Attending Provider: Katrin Maza Primary Care Provider: Belgica French Consulting Providers: Lucia Cifuentes Instructions Additional Instructions / Restrictions: 1. Please continue using your incentive spirometry and Acapella at least 3 times a day after you are done with antibiotics to help prevent further pneumonia 2. Follow-up with oncology and pulmonary medicine as previously scheduled Discharge Orders/Prescriptions Prescriptions: New levofloxacin 750 mg tablet 750 mg PO .Q48 Qty: 5 0RF Rx Instructions: Take every other day for 5 doses Continued pantoprazole 40 mg tablet,delayed release (DR/EC) 40 mg PO DAILY Qty: 30 5RF pembrolizumab [Keytruda] IV Q21D Trelegy Ellipta 100-62.5-25 mcg blister with device 1 inh inhalation DAILY guaifenesin [Mucus Relief ER] 600 mg tablet extended release 12hr 600 mg PO BID Patient Comments: FAMILY STATES PT TAKES ONE TABLET ONCE A DAY EVERY MORNING AND WILL ONLY TAKE THE SECOND DOSE IF IT IS NEEDED Referrals / Follow Up: Belgica French MD [Primary Care Provider] - Within 2 Weeks Disposition Disposition (needs filled in before D/C Order can be placed): Home, Self Care Charges/Coding Visit Charges Inpatient E&M: 11626 Disch Hosp >30min
--- NOTE | 2024-04-16 09:45 | PCM.DC.SUM ---
Providers Date of Admission: 04/14/24 Date of Discharge: 04/16/24 Primary Care Physician: Dr. Belgica French MD Reason For Visit: HYPOXIA Diagnosis Discharge Diagnosis (1) COPD exacerbation: Status: Chronic Code(s): J44.1 - Chronic obstructive pulmonary disease with (acute) exacerbation (2) Hypoxia: Status: Acute Code(s): R09.02 - Hypoxemia (3) Severe malnutrition: Status: Acute Code(s): E43 - Unspecified severe protein-calorie malnutrition (4) Hyponatremia: Status: Acute Code(s): E87.1 - Hypo-osmolality and hyponatremia (5) Elevated serum creatinine: Status: Acute Code(s): R79.89 - Other specified abnormal findings of blood chemistry (6) Postobstructive pneumonia: Status: Acute Code(s): J18.9 - Pneumonia, unspecified organism Medications at Discharge Home Medications pantoprazole 40 mg tablet,delayed release 40 mg PO DAILY GERD #30 tabs 10/25/23 pembrolizumab IV Q21D LUNG CANCER 12/17/23 fluticasone fur. 100 mcg-umeclid 62.5 mcg-vilant 25 mcg inhalat.powder (Trelegy Ellipta) 1 inh inhalation DAILY SHORTNESS OF BREATH 01/22/24 guaifenesin 600 mg tablet, extended release 12 hr (Mucus Relief ER) 600 mg PO BID COUGH 04/14/24 levofloxacin 750 mg tablet 750 mg PO .Q48 #5 tabs 04/16/24 Hospital Course Summary of Care Provided Minutes Spent on Discharge: 38 Hospital Course: Mr Hernandez is a 73-year-old male who presented to the emergency department [facility] on 04/14/2024 with hypoxia. 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 Dobson and Dr. Dia as an outpatient. He presented from the [facility] center due to hypoxia. At baseline he wears 2 L of oxygen with ambulation but was noted to need 3 L at rest. Patient reported he was feeling okay without any complaints but did state that he had an increased cough with yellow stuff that he has been able to bring up and indicated that his oxygen had been a bit lower for the past day or 2. He indicated he was otherwise feeling well. Vital signs on presentation showed a temperature of 98.3, heart rate 87, respiratory rate 22, blood pressure 119/70, pulse ox was 98% on 3 L nasal cannula. The case was discussed with Dr. Dia by the emergency department and no significant change was noted from his previous CT in February 2024 other than possibly increased pleural effusion with Dr. Dia was concerned about his increased oxygen demand and requested admission. CBC on presentation showed a normal white count but he did have a significant left shift with an 88.9% neutrophilia. He had a chronic stable anemia as well. CTA of the chest was performed and showed no pulmonary embolism or dissection but did show chronic consolidative mass in the medial aspect of the left upper lobe as well as areas of necrosis and calcification in this mall peripheral loculated effusion as well as spiculated malignant nodules and secondary obstructive consolidation/pneumonia in the left lower lobe. Respiratory viral panel and COVID were unremarkable. Strep pneumo and Legionella antigens were unremarkable as well. He was admitted to the medical floor and placed on Zosyn and azithromycin. Azithromycin was discontinued once Legionella antigen was negative. He was maintained on Zosyn to cover Pseudomonas as well as other broad-spectrum coverage. He received aggressive pulmonary toilet along with incentive spirometry and Acapella. We were able to wean his oxygen to room air by late in the day on April 15 and he maintained on room air through the night. An ambulatory pulse ox was done on 04/16/2024 and patient required no oxygen. He was able to produce a sputum and the culture was pending at the time of discharge. I will monitor this and sure that the antibiotic choice at discharge covers which ever organize him he grows well. We did discharge him with Levaquin 750 mg every other day for 5 more days. Serum creatinine at discharge was 1.5 so antibiotic was renally dosed. It does appear that this has been his baseline creatinine lately. Oxygen saturations at rest on room air were 95% and 91 with exertion. We have asked him to follow-up with oncology as previously scheduled and his primary care physician within the next 1 to 2 weeks. I have asked that he continue both incentive spirometry and Acapella even after he is completed antibiotics to help prevent further issues with postobstructive pneumonia. Patient was discharged home in stable condition on 04/16/2024 Discharge diagnoses: Acute hypoxia secondary to postobstructive pneumonia Elevated serum creatinine CKD stage II Hyponatremia-resolved Severe malnutrition History of atrial fibrillation Metastatic lung CA-stage IV COPD GERD CAD Chronic anemia History of osteoarthritis Physical Exam Const alert, oriented x3, no apparent distress, average body habitus and no limitations; Negative for healthy appearing or well nourished Constitutional Narrative: Older, white male, thin, sitting up in bed, family at bedside, patient on room air, appears well, nontoxic General Appearance: cooperative, comfortable, well kempt and well developed Orientation / Consciousness: awake, oriented to person, oriented to place and oriented to time Exam Limitations: no limitations Nutritional Appearance: underweight and thin HEENT normocephalic, head/scalp atraumatic and moist oral mucous membranes; Negative for hearing grossly normal bilaterally HEENT Narrative: Dentition is poor, Mallampati is 2, no thrush, mild hearing loss Eyes PERRL, EOMs intact bilaterally and conjunctivae normal Eyes Narrative: No scleral icterus Neck no lymphadenopathy and supple Neck Narrative: Trachea midline, no thyroid enlargement Resp normal respiratory effort, no retractions, no use of accessory muscles and clear to auscultation bilaterally Resp Narrative: Markedly diminished diffusely-rhonchi in left base have resolved Auscultation: Negative for rales, rhonchi or wheezes Cardio regular rate, regular rhythm, S1 normal heart sound, S2 normal heart sound, no murmurs, no rub, no gallops and no clicks GI normal to inspection, nondistended, normoactive bowel sounds, soft to palpation and non-tender GI Narrative: Scaphoid abdomen Extremity no clubbing, cyanosis or edema Extremity Narrative: Decreased lean muscle mass Skin no rashes or lesions noted, no wounds, skin turgor normal and no jaundice Skin Narrative: Skin is thin Neuro oriented x3, moves all extremities and no focal motor deficits Speech: speech normal Psych affect normal Psych Narrative: Very pleasant, interacts appropriately, anxious to go home Weight / BMI Weight Weight: 75 kg Body Mass Index (BMI) 23.7 ABG / Lab / Microbiology Data 04/16/24 05:11 04/16/24 05:11 Laboratory: Laboratory Results - last 24 hr 04/15/24 09:25: MRSA (PCR) Negative 04/16/24 05:11: WBC 6.9, RBC 2.45 L, Hgb 7.3 L, Hct 21.9 L, MCV 89.4, MCH 29.8, MCHC 33.3, RDW Std Deviation 66.9 H, RDW Coeff of Joe 21.4 H, Plt Count 215, MPV 8.4, Immature Gran % (Auto) 0.300, Neut % (Auto) 82.8 H, Lymph % (Auto) 13.3 L, [place] % (Auto) 3.4, Eos % (Auto) 0.1, Baso % (Auto) 0.1, Absolute Neuts (auto) 5.7, Absolute Lymphs (auto) 0.91, Nucleated RBC % 0, Anisocytosis 1+, Sodium 137, Potassium 4.3, Chloride 107, Carbon Dioxide 24.0, Anion Gap 6, BUN 32 H, Creatinine 1.50 H, Estim Creat Clear Calc 45.29, Est GFR (MDRD) Af Amer 59 L, Est GFR (MDRD) Non-Af 49 L, BUN/Creatinine Ratio 21.3 H, Glucose 91, Calcium 8.9 Microbiology: Microbiology 04/14/24 17:34 Mucosa - Nasopharyngeal Respiratory Panel (PCR) - Final 04/14/24 17:34 Mucosa - Nasopharyngeal SARS-CoV-2, Influenza & RSV (PCR) - Final 04/14/24 Unknown Urine, Random Legionella Antigen - Final 04/14/24 Unknown Urine, Random Streptococcus pneumoniae Antigen (M - Final D/C Instructions Discharge Diet: No restrictions Discharge Activity: Return to Normal Activity Meaningful Use Info Meaningful Use Meaningful Use Diagnoses (Choose all that apply): None applicable Ischemic Stroke Statin Dosing Therapy Reference: STATIN DOSE THERAPY REFERENCE: * Patients > 75 years receive moderate or high dose statin therapy. * Patients 75 years or YOUNGER should receive HIGH intensity statin dose unless contraindicated. You will be required to document reason for non-treatment if statin daily dose does not meet guidelines. HIGH DOSE STATIN THERAPY DAILY Atorvastatin > than or = to 40 mg Rosuvastatin > than or = to 20 mg Amlodipine + Atorvastatin > than or = to 2.5/40 mg Ezetimibe + Simvastatin 10/80 mg Simvastatin 80mg Discharge Plan Admission Admit Date/Time: 04/14/24 16:23 Primary Reason for Your Visit: Hypoxia Attending Provider: Katrin Maza Primary Care Provider: Belgica French Consulting Providers: Lucia Cifuentes Instructions Additional Instructions / Restrictions: 1. Please continue using your incentive spirometry and Acapella at least 3 times a day after you are done with antibiotics to help prevent further pneumonia 2. Follow-up with oncology and pulmonary medicine as previously scheduled Discharge Orders/Prescriptions Prescriptions: New levofloxacin 750 mg tablet 750 mg PO .Q48 Qty: 5 0RF Rx Instructions: Take every other day for 5 doses Continued pantoprazole 40 mg tablet,delayed release (DR/EC) 40 mg PO DAILY Qty: 30 5RF pembrolizumab [Keytruda] IV Q21D Trelegy Ellipta 100-62.5-25 mcg blister with device 1 inh inhalation DAILY guaifenesin [Mucus Relief ER] 600 mg tablet extended release 12hr 600 mg PO BID Patient Comments: FAMILY STATES PT TAKES ONE TABLET ONCE A DAY EVERY MORNING AND WILL ONLY TAKE THE SECOND DOSE IF IT IS NEEDED Referrals / Follow Up: Belgica French MD [Primary Care Provider] - Within 2 Weeks Disposition Disposition (needs filled in before D/C Order can be placed): Home, Self Care Charges/Coding Visit Charges Inpatient E&M: 11076 Disch Hosp >30min
--- NOTE | 2024-04-16 10:08 | CASEMGMT ---
Social Work SW met with pt to discuss advance directives.? Pt confirms he has completed a living will and health care POA naming his Cici Hernandze.? Pt and family notified that documents are not on file at [facility] and SW requested they be brought in for scanning into the EMR.? NHAN Rodriguez
== END 2024-04-16 10:16 | disposition home or self-care (01) | DRG 194 ==
LOC: ED 15:32 → MS3 15:37
PROVIDERS: Admitting Provider Internal Medicine; Emergency Provider Emergency Medicine; PCP Internal Medicine; Visit Provider Internal Medicine
DX: J18.9 Pneumonia, unspecified organism (principal); J44.0 Chronic obstructive pulmonary disease with (acute) lower respiratory infection; C77.9 Secondary and unspecified malignant neoplasm of lymph node, unspecified; C34.12 Malignant neoplasm of upper lobe, left bronchus or lung; E87.1 Hypo-osmolality and hyponatremia; J43.9 Emphysema, unspecified; I12.9 Hypertensive chronic kidney disease with stage 1 through stage 4 chronic kidney disease, or unspecified chronic kidney disease; N18.2 Chronic kidney disease, stage 2 (mild); E78.5 Hyperlipidemia, unspecified; I25.10 Atherosclerotic heart disease of native coronary artery without angina pectoris; K21.9 Gastro-esophageal reflux disease without esophagitis; M19.90 Unspecified osteoarthritis, unspecified site; I25.2 Old myocardial infarction; R09.02 Hypoxemia; Z66 Do not resuscitate; Z79.51 Long term (current) use of inhaled steroids; Z87.891 Personal history of nicotine dependence; Z95.5 Presence of coronary angioplasty implant and graft
CPT/HCPCS: 36415; 71275; 80048; 80053; 83735; 83880; 84100; 84443; 84484; 85025; 87070; 87205; 87449; 87631; 87633; 87641; 93005; 94640; 94668; 99252; 99283; 99406; J7030; J7120; Q9967; A4216; G0463

== ENCOUNTER 2024-08-06 12:23 | Emergency (ER) | payer MEDICARE, SELFPAY ==
[2024-08-06] VITALS (8 sets, daily range): BP systolic 105–147; BP diastolic 61–80; PULSE 83–110; RESP 15–30; TEMP 36.4–36.6; O2SAT 85–98; BMI 21.9
--- NOTE | 2024-08-06 12:55 | EKG12_ITS ---
Test Reason : SOB Blood Pressure : / mmHG Vent. Rate : 085 BPM Atrial Rate : 085 BPM P-R Int : 144 ms QRS Dur : 106 ms QT Int : 354 ms P-R-T Axes : 067 006 058 degrees QTc Int : 421 ms Normal sinus rhythm Normal ECG Confirmed by ANN MONTANA, RENAE ([id number]), editor publications SONJA GARNER ([id number]) on 08/07/2024 9:24:22 AM Referred By: Confirmed By:RENAE JUAREZ MD
[2024-08-06] MEDS: Ipratropium/Albuterol Sulfate 3 ML AMPUL.NEB 9 ML INHALATION (13:08)
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
[2024-08-06 13:19] LABS: Absolute Lymphocyte Count 0.49 X10^3/uL (0.83-4.51); Absolute Neutrophil Count 4.1 X10^3/uL (2.0-7.7); Basophil# 0.02 X10^3/uL; Basophil% 0.4 % (0-1); Eosinophil# 0.01 X10^3/uL; Eosinophils% 0.2 % (0-5); Hemoglobin 7.5 g/dL (13.0-16.5); Lymphocyte # 0.49 X10^3/ul (0.83-4.51); Lymphocyte % 9.1 % (19-41); Mean Corpuscular Hgb 30.6 pg (27.0-32.0); Mean Platelet Vol. 10.1 fl (6.2-12.0); Monocyte# 0.79 X10^3/uL; Monocyte% 14.6 % (0-10); NRBC Flagged by Analyzer 0 % (0-5); Neutrophil # 4.07 X10^3/uL (2.7-7.7); Neutrophil % 75.1 % (47-70); POSITIVE DIFFERENTIAL YES; Platelet Count 109 K/mm3 (150-450); RBC Distribution Width SD 62.1 fl (35.1-43.9); Red Blood Count 2.45 M/mm3 (4.6-6.2); White Blood Count 5.4 K/mm3 (4.4-11.0)
[2024-08-06] MEDS: 0.9% Normal Saline (500mL Bag) 500 ML 999 ML IV (13:29)
[2024-08-06] MEDS: MethylPREDNISolone 125 MG/2 ML Vial IV (13:29)
[2024-08-06 13:33] LABS: Anion Gap 6 (5-15); BUN 23 mg/dL (7-18); BUN/Creat Ratio 16.5 RATIO (10-20); Calcium,Total 9.1 mg/dL (8.5-10.1); Chloride 101 mmol/L (98-107); Creatinine, Serum 1.39 mg/dL (0.70-1.30); D-Dimer Quantitative (DVT/PE) 1.34 FEU/ug/m (0.27-0.49); EST Glomerular Filtration Rate 53 mL/min (>60); Est Glom Filt Rate - Afr Amer 64 mL/min (>60); Estimated Creatinine Clearance 46.34 ml/min; Glucose 132 mg/dL (74-106); Potassium 3.8 mmol/L (3.5-5.1); Sodium Level 136 mmol/L (136-145); Troponin-I HS (w/2H Reflex) 18 pg/mL (3.0-78.0)
[2024-08-06 13:37] LABS: BNP,B-Type NATRIURETIC PEPTIDE 99.9 pg/mL (0-100)
--- NOTE | 2024-08-06 13:45 | RAD_ITS ---
STUDY: X-RAY CHEST REASON FOR EXAM: Male, 73 years old. Shortness of breath TECHNIQUE: PA and lateral views of the chest. COMPARISON: Comparison made with prior study January 21, 2024. FINDINGS: EKG electrodes are seen. There is elevation of the left hemidiaphragm. Blunting of the left costophrenic angle. The previously seen cavitary mass in the left perihilar region and left upper lobe as almost completely resolved. Residual changes are seen in the left perihilar region. New infiltrates in the right lower lobe. Normal size heart. Normal mediastinum and chriss. Normal visualized pulmonary arteries. There is atherosclerotic calcification of the aortic arch with tortuosity. There are diffuse degenerative changes of the visualized thoracic spine. Normal visualized ribs, clavicles, and shoulders. There is no demonstrated abnormality of the visualized soft tissue structures of the upper abdomen. RAD/Chest PA and Lateral IMPRESSION: Stable elevation of the left hemidiaphragm with blunting of left costophrenic angle. Mild residual changes seen in the left perihilar region and left upper lobe. New infiltrate in the right lower. Electronically Signed: Jin Guevara MD at 14:09 EDT ,
--- NOTE | 2024-08-06 13:48 | CT_ITS ---
STUDY: CTA CHEST REASON FOR EXAM: Male, 73 years old. Elevated D-dimer, lung cancer RADIATION DOSAGE (If Supplied By Facility): CTDIvol = ( 8.74 ) mGy, DLP = ( 268.73 ) mGycm TECHNIQUE: The examination was performed with the intravenous administration of IV 100mL [id number]. Post-processing of the angiographic images was performed, with multiplanar reformation and 3D reconstruction. Individualized dose optimization techniques were used for this CT. COMPARISON: Comparison is made with prior study April 14, 2024. FINDINGS: Normal enhancement of the main pulmonary artery and right and left pulmonary arteries. Normal enhancement of the bilateral peripheral pulmonary arteries. There is no demonstrated pulmonary embolism. Normal thoracic aorta and visualized great vessels. There is no demonstrated aortic dissection. There are calcifications of the coronary arteries. Normal mediastinum. Normal hilar regions. Normal visualized trachea and bronchi. Elevation of the right hemidiaphragm. Persistent almost complete collapse of the left upper lobe with heterogeneous density. There is narrowing of the left upper lobe bronchus in keeping with the known carcinoma with postobstructive pneumonitis and atelectasis. Since prior study, there has been improved aeration of the remaining lung. Increased interstitial markings with areas of confluence in the right upper lobe as compared to prior study. There is also evidence of a infiltrates in the right lower lobe. The previously seen infiltration of the left lung base has improved. Small bilateral pleural effusions. Normal chest wall structures. There are degenerative changes of thoracic spine. Distention of the inferior vena cava. CT/CTA Chest W/WO Contrast IMPRESSION: No evidence of pulmonary embolism. Almost complete collapse of the left upper lobe although there is better aeration of the visualized portion of the left upper lobe as compared to prior study. Right hilar mass with the obstruction of the left upper lobe bronchus in keeping with the known history of neoplasia with postobstructive pneumonitis/atelectasis. Progressive infiltrate in the right middle lobe and right lower lobe. Improved aeration of the left lower lobe. Electronically Signed: Jin Guevara MD at 14:18 EDT ,
[2024-08-06 14:34] LABS: Blood Gas Specimen Type VEN; O2 Delivery Device Cannula; SITE Not entered; VBG BASE EXCESS 1 mmol/L (-1.0-3.5); VBG Bicarbonate 26 mmol/L (22-26); VBG PO2 26 mmHg (25-40); VBG SO2 46 % (50-70); VBG TCO2 28 mmol/L (23-33); VBG pCO2 43.2 mmHg (41-51); VBG pH 7.39 (7.32-7.42)
[2024-08-06 15:10] LABS: Reflex Troponin-HS? (from REC) Y
== END 2024-08-06 15:32 | disposition home or self-care (01) ==
PROVIDERS: Emergency Provider Surgery; PCP Internal Medicine; Visit Provider Surgery
DX: J18.9 Pneumonia, unspecified organism (principal); R09.02 Hypoxemia; I25.10 Atherosclerotic heart disease of native coronary artery without angina pectoris; D64.9 Anemia, unspecified; D69.6 Thrombocytopenia, unspecified; N28.9 Disorder of kidney and ureter, unspecified; I25.2 Old myocardial infarction; Z79.51 Long term (current) use of inhaled steroids; Z79.899 Other long term (current) drug therapy; Z95.5 Presence of coronary angioplasty implant and graft; Z87.891 Personal history of nicotine dependence
CPT/HCPCS: 71046; 71275; 80048; 82803; 83880; 84484; 85025; 85379; 87631; 93005; 94640; 96361; 96374; 99284; J7040; Q9967; A4216

== ENCOUNTER 2024-08-20 20:02 | Emergency (ER) | payer MEDICARE, SELFPAY ==
[2024-08-20 20:03] VITALS: BP 92/84; PULSE 120; RESP 16; RESP 18; TEMP 37.7; O2SAT 82; O2SAT 95
[2024-08-20 20:31] LABS: Absolute Lymphocyte Count 0.46 X10^3/uL (0.83-4.51); Absolute Neutrophil Count 8.9 X10^3/uL (2.0-7.7); Basophil# 0.02 X10^3/uL; Basophil% 0.2 % (0-1); Hematocrit 26.8 % (40-54); Hemoglobin 8.4 g/dL (13.0-16.5); Lymphocyte # 0.46 X10^3/ul (0.83-4.51); Lymphocyte % 4.4 % (19-41); Mean Corp Hgb Conc 31.3 g/dL (32-36); Mean Corpuscular Hgb 30.3 pg (27.0-32.0); Mean Corpuscular Volume 96.8 fL (80-94); Mean Platelet Vol. 8.5 fl (6.2-12.0); Monocyte# 0.92 X10^3/uL; Monocyte% 8.9 % (0-10); NRBC Flagged by Analyzer 0 % (0-5); Neutrophil # 8.91 X10^3/uL (2.7-7.7); Neutrophil % 85.8 % (47-70); POSITIVE DIFFERENTIAL YES; Platelet Count 204 K/mm3 (150-450); RBC Distribution Width CV 16.8 % (11.6-14.6); RBC Distribution Width SD 59.6 fl (35.1-43.9); Red Blood Count 2.77 M/mm3 (4.6-6.2); White Blood Count 10.4 K/mm3 (4.4-11.0)
[2024-08-20 20:45] LABS: International Normalized Ratio 1.2; Partial Thromboplast Time 29.3 Seconds (24.1-36.2); Prothrombin Time (Protime)PT. 14.8 SECONDS (11.7-14.9)
[2024-08-20 20:54] LABS: Lactic Acid 1.6 mmol/L (0.4-1.9)
[2024-08-20 20:56] LABS: ALB/GLOB Ratio 0.7 RATIO (0.9-2.4); AST(SGOT) 18 U/L (15-37); Alanine Aminotransfer ALT/SGPT 20 U/L (16-61); Albumin, Serum 2.8 g/dL (3.2-5.0); Alkaline Phosphatase 174 U/L (45-117); Anion Gap 8 (5-15); BUN 27 mg/dL (7-18); BUN/Creat Ratio 21.3 RATIO (10-20); Calcium,Total 9.3 mg/dL (8.5-10.1); Chloride 102 mmol/L (98-107); Creatinine, Serum 1.27 mg/dL (0.70-1.30); EST Glomerular Filtration Rate 59 mL/min (>60); Est Glom Filt Rate - Afr Amer 71 mL/min (>60); Globulin 3.9 g/dL (2.2-4.2); Glucose 146 mg/dL (74-106); Potassium 4.6 mmol/L (3.5-5.1); Protein, Total 6.7 g/dL (6.4-8.2); Sodium Level 137 mmol/L (136-145)
[2024-08-20 21:00] VITALS: BP 107/61; PULSE 102; RESP 20; TEMP 37.7; O2SAT 95
[2024-08-20] MEDS: Acetaminophen 500 MG Tablet 1000 MG PO (21:42)
[2024-08-20 22:20] VITALS: BP 108/53; PULSE 82; RESP 20; TEMP 37.1; O2SAT 96
[2024-08-20 22:26] LABS: BNP,B-Type NATRIURETIC PEPTIDE 162.5 pg/mL (0-100)
[2024-08-20 22:29] LABS: Lipase 11 U/L (13-75); Troponin-I HS (w/2H Reflex) 12 pg/mL (3.0-78.0)
[2024-08-20 23:00] VITALS: BP 93/59; PULSE 79; RESP 20; O2SAT 97
[2024-08-21] VITALS: BP 92/57; PULSE 74; RESP 20; O2SAT 97
[2024-08-21 00:08] LABS: Reflex Troponin-HS? (from REC) Y
[2024-08-21 00:22] VITALS: BP 92/57; PULSE 70; RESP 18; TEMP 36.5; O2SAT 98
== END 2024-08-21 00:37 | disposition home or self-care (01) ==
PROVIDERS: Emergency Provider Surgery; PCP Internal Medicine; Visit Provider Surgery
DX: K59.00 Constipation, unspecified (principal); T45.1X5A Adverse effect of antineoplastic and immunosuppressive drugs, initial encounter; I25.10 Atherosclerotic heart disease of native coronary artery without angina pectoris; I25.2 Old myocardial infarction; R06.02 Shortness of breath; Z95.5 Presence of coronary angioplasty implant and graft; Z87.891 Personal history of nicotine dependence
CPT/HCPCS: 71046; 74177; 80053; 83605; 83690; 83880; 84484; 85025; 85610; 85730; 87040; 87631; 93005; 99285; Q9967; A4216